=== PATIENT | female | born 1950 | race Caucasian/White ===

== ENCOUNTER → 2017-12-20 14:39 | Outpatient (CLI) | payer MEDICARE, OTHER, SELFPAY ==
--- NOTE | 2017-12-20 16:34 | DI.CT.S_ITS ---
PROCEDURE: CT ABDOMEN PELVIS WO/W CON INDICATIONS: GROSS HEMATURIA TECHNIQUE: Optional 5 mm thick noncontrast images acquired from the diaphragm to the symphysis pubis. After the administration of intravenous contrast, 5 mm thick images acquired from the diaphragm to the symphysis pubis after a 10-minute delay. 2 mm thick coronal and sagittal reformats were then performed of the kidneys and ureters. For radiation dose reduction, the following was used: automated exposure control, adjustment of mA and/or kV according to patient size. COMPARISON: [facility], , PELVIC/TRANSVAGINAL, 11/04/2005, 9:17. FINDINGS: Image quality: Excellent. Lung bases: Lung bases are clear. Heart size is normal. Urinary system: Both kidneys are normal in size, without hydronephrosis bilaterally or right-sided nephrolithiasis on pre-contrast images. There is a 5 x 7 mm calculus that is nonobstructive measuring up to 540 Hounsfield units within the lateral collecting system of the left kidney, middle third. This is associated with an overlying focal cortical thinning indicating chronicity of this finding. No perinephric fat stranding. There is normal bilateral renal enhancement. Renal calyces appear normal in morphology when filled with contrast. Opacified portions of both ureters demonstrate normal caliber. Bladder wall thickness is normal. No calcified bladder stones. Other solid organs: Liver is normal in size and enhancement. Gallbladder appears normal where well visualized. Biliary system is non dilated. Pancreas enhances normally. Spleen is normal in size and enhancement. No adrenal nodules. Peritoneum and bowel: Bowel loops demonstrate normal wall thickness and caliber. No free fluid or air. Nodes and vessels: No retroperitoneal or mesenteric adenopathy by size criteria. Aorta and inferior vena cava are normal in size. Abdominal wall: No ventral hernias. Pelvis: No pathologic free pelvic fluid. No inguinal hernias or adenopathy. There is an abnormal high density ovoid uterine structure either within the endometrium or within the myometrium immediately adjacent measuring up to 4.6 cm. Statistically this is most likely a uterine fibroid. Pelvic ultrasound however definitely is recommended to confirm benign etiology. Bones: No suspicious bony lesions. No vertebral body compression fractures. IMPRESSION: 5 x 7 mm nonobstructive left renal collecting system calculus with overlying mild focal renal cortical thinning, indicating chronicity and possible prior infection in the overlying cortex. No sign of urinary tract obstruction. No mass lesion involving the urinary tract is identified (but the study is performed without contrast).. There is an unexpected finding of a subtle high density ovoid structure measuring up to 4.6 cm at the posterior two thirds of the uterus, potentially an endometrial mass or possibly a uterine fibroid. Pelvic ultrasound is recommended to establish etiology (uterine fibroid is the likely cause). Dictated by: Virgilio Vidal M.D. on 12/21/2017 at 12:10 Approved by: Virgilio Vidal M.D. on 12/21/2017 at 12:21
[2017-12-20 16:59] LABS: BUN Creatinine Ratio 22.9 (6-22); Blood Urea Nitrogen 16 mg/dL (7-17); Estimated Glomerular Filt Rate > 60.0 mL/min (>60)
== END ==
PROVIDERS: PCP Family Medicine; Visit Provider Urology
DX: N20.0 Calculus of kidney (principal); R31.0 Gross hematuria
CPT/HCPCS: 36415; 74178; 82565; 84520; Q9967

== ENCOUNTER → 2018-01-24 07:14 | Outpatient (CLI) | payer MEDICARE, OTHER, SELFPAY ==
--- NOTE | 2018-01-24 | DI.US.S_ITS ---
PROCEDURE: US PELVIC COMPLETE INDICATIONS: ENDOMETRIAL MASS TECHNIQUE: Real-time scanning was performed of the pelvic organs, with image documentation. Additional endovaginal scanning was necessary due to incomplete visualization of the adnexal and endometrial structures by transabdominal scanning. COMPARISON: [facility], RG, US PELVIC/TRANSVAGINAL, 11/04/2005, 9:17. [facility], CT, CT ABDOMEN PELVIS WO/W CON, 12/20/2017, 16:55. FINDINGS: Transabdominal scanning: Limited scanning through the kidneys shows no hydronephrosis. No pathologic free abdominal or pelvic fluid. Endovaginal scanning: Uterus: Uterus is normal in size at 7.3 x 5.9 x 6.3 cm. The endometrium is not visualized secondary to large fibroid likely intramural although submucosal positioning cannot be excluded measured 3.7 x 3.5 x 5.0 cm. Ovaries: Not visualized. No adnexal masses seen. Grossly normal appearance of the kidneys. IMPRESSION: Large fibroid which is likely either intramural or submucosal measuring up to 5.0 cm which appears slightly increased in size from prior report dated 11/04/2005. If indicated pre and post contrast gynecologic protocol MRI could be performed. Dictated by: Mateusz LLOYD Interpreted: Virgilio Vidal MD on 01/24/2018 at 8:13 Approved by: Virgilio Vidal M.D. on 01/24/2018 at 14:05
== END ==
PROVIDERS: PCP Family Medicine; Visit Provider Urology
DX: D25.9 Leiomyoma of uterus, unspecified (principal)
CPT/HCPCS: 76830; 76856

== ENCOUNTER → 2018-02-11 09:12 | Outpatient (CLI) | payer MEDICARE, OTHER, SELFPAY ==
--- NOTE | 2018-02-11 | DI.MG.S_ITS ---
BILATERAL DIGITAL SCREENING MAMMOGRAM 3D/2D WITH CAD: 02/11/2018 CLINICAL: Routine screening. Family history of breast cancer. Comparison is made to exams dated: 01/27/2017 mammogram, 01/19/2016 mammogram, and 01/15/2015 mammogram - [facility]. The tissue of both breasts is extremely dense, which lowers the sensitivity of mammography. Current study was also evaluated with a Computer Aided Detection (CAD) system. No significant masses, calcifications, or other findings are seen in either breast. There has been no significant interval change. IMPRESSION: NEGATIVE There is no mammographic evidence of malignancy. A 1 year screening mammogram is recommended. This exam was interpreted at Station ID: [id number]. NOTE: For mammograms, a report in lay terms will be sent to the patient. Approximately 15% of breast malignancies will not be visualized mammographically. In the management of a palpable breast mass, a negative mammogram must not discourage biopsy of a clinically suspicious lesion. Electronically Signed By: Keisha shah/roxanna:02/13/2018 15:37:39 letter sent: Normal Exam ACR BI-RADS Category 1: Negative 3341F
== END ==
PROVIDERS: PCP Family Medicine; Visit Provider Family Medicine
DX: Z12.31 Encounter for screening mammogram for malignant neoplasm of breast (principal); Z80.3 Family history of malignant neoplasm of breast
CPT/HCPCS: 77063; 77067

== ENCOUNTER → 2018-03-10 07:45 | Outpatient (CLI) | payer MEDICARE, OTHER, SELFPAY ==
[2018-03-10 08:18] LABS: Alanine Aminotransferase 20 IU/L (9-52); Albumin 4.4 g/dL (3.5-5.0); Albumin Globulin Ratio 1.5 (1.0-2.8); Alkaline Phosphatase 53 U/L (38-126); Aspartate Aminotransferase 32 IU/L (14-36); BUN Creatinine Ratio 28.6 (6-22); Bilirubin Total 0.4 mg/dL (0.2-1.3); Blood Urea Nitrogen 20 mg/dL (7-17); Calcium 9.4 mg/dL (8.4-10.2); Carbon Dioxide 29 mmol/L (22-32); Chloride 104 mmol/L (98-107); Cholesterol 196 mg/dL (140-199); Estimated Glomerular Filt Rate > 60.0 mL/min (>60); Globulin 2.9 g/dL (1.7-4.1); Glucose 99 mg/dL (80-110); HEMOLYSIS < 15 (0-50); Potassium 4.8 mmol/L (3.4-5.1); Sodium 143 mmol/L (137-145); Total Protein 7.3 g/dL (6.3-8.2); Triglycerides 47 mg/dL (35-150)
[2018-03-10 08:48] LABS: HDL Cholesterol 126 mg/dL (40-60); LDL Cholesterol Calculated 61 mg/dL (<100)
== END ==
PROVIDERS: PCP Family Medicine; Visit Provider Family Medicine
DX: Z13.220 Encounter for screening for lipoid disorders (principal); Z13.1 Encounter for screening for diabetes mellitus
CPT/HCPCS: 36415; 80053; 80061

== ENCOUNTER → 2018-03-15 09:28 | Outpatient (CLI) | payer MEDICARE, OTHER, SELFPAY | PROVIDERS: PCP Family Medicine; Visit Provider Family Medicine | DX: M81.0 Age-related osteoporosis without current pathological fracture (principal); Z78.0 Asymptomatic menopausal state; Z87.891 Personal history of nicotine dependence | CPT/HCPCS: 77080 ==

== ENCOUNTER 2019-02-09 11:47 | Emergency (ER) | payer MEDICARE, OTHER, SELFPAY ==
[2019-02-09 12:01] VITALS: BP 159/97; PULSE 63; RESP 14; TEMP 36.4; O2SAT 99; BMI 19.3
--- NOTE | 2019-02-09 12:16 | ED.WEAKNESS ---
HPI - Weakness General Chief complaint: Weakness Stated complaint: lizeth De Los Santos Time Seen by Provider: 02/09/19 12:07 Source: patient, family and other Mode of arrival: Wheelchair Limitations: no limitations History of Present Illness HPI Narrative: Patient is 69-year-old female who presents with generalized weakness and lightheadedness. He says she woke up this morning and generally felt okay then few hours later she felt lightheaded all like she might pass out. She denies any chest pain or heart palpitation no weakness numbness or tingling Related Data Home Medications Medication Instructions Recorded Confirmed No Known Home Medications 01/13/18 03/15/18 Allergies Allergy/AdvReac Type Severity Reaction Status Date / Time No Known Drug Allergies Allergy Verified 03/15/18 08:26 Review of Systems Review of Systems ROS Unobtainable: All systems reviewed & are unremarkable except as noted in HPI and below Constitutional Constitutional: Denies chills, Denies fever(s), Denies lethargy and Reports weakness Eyes Eyes: Denies change in vision, Denies eye discharge, Denies irritation and Denies loss of vision ENT Ears, Nose, Mouth, and Throat: Denies change in voice, Denies neck pain and Denies sore throat Cardiovascular Cardiovascular: Denies chest pain, Denies irregular heart rhythm, Reports lightheadedness, Denies palpitations, Denies dyspnea, Denies dyspnea on exertion and Denies orthopnea Respiratory Respiratory: Denies cough, Denies dyspnea, Denies dyspnea on exertion and Denies wheezing Gastrointestinal Gastrointestinal: Denies abdominal pain, Denies change in bowel habits, Denies diarrhea, Denies nausea and Denies vomiting Genitourinary Genitourinary: Denies hematuria, Denies flank pain, Denies urinary incontinence and Denies urinary urgency Musculoskeletal Musculoskeletal: Denies neck pain Integumentary/Breasts Skin/Breast: Denies pruritus, Denies erythema, Denies rash and Denies wounds Neurologic Neurologic: Denies loss of vision and Reports weakness Endocrine Endocrine: Denies palpitations Allergic/Immunologic Allergic/Immunologic: Denies wheezing Patient History Medical History Actinic keratosis (Chronic) Chicken pox (Resolved) Fibroids (Chronic ~1989) Kidney stones (Chronic ~2017) Measles (Resolved) Mumps (Resolved) Skin cancer (Resolved) Tinnitus (Chronic ~1999) Surgical History History of surgery (Resolved ~2005) History of tonsillectomy (Resolved ~1956) Melanoma (Resolved ~1980) Ruptured ovarian cyst (Resolved ~1983) Social History marital status: household members: spouse lives independently: Yes education level: college occupational status: other (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) leisure activities: exercise and other (hiking) other: cooking Smoking Status: Former smoker alcohol intake: current (1-2 drinks per day) substance use type: does not use Smoking Status: Former smoker tobacco type: cigarettes alcohol intake frequency: 3 or more drinks per day Alcohol type: wine Substance Use Type: does not use Exam Initial Vital Signs Initial Vital Signs: Vital Signs Temperature 97.5 F L 02/09/19 12:01 Pulse Rate 63 02/09/19 12:01 Respiratory Rate 14 02/09/19 12:01 Blood Pressure 159/97 H 02/09/19 12:01 Pulse Oximetry 99 02/09/19 12:01 GENERAL: Well-appearing, well-nourished and in no acute distress. HEENT: Head atraumatic,EOMI, pupils reactive, face symmetric CARDIOVASCULAR: Regular rate and rhythm without murmurs, rubs or gallops. RESPIRATORY: Breath sounds equal bilaterally, no wheezes rales or rhonchi. ABDOMEN: Soft, nontender. Normoactive bowel sounds all 4 quadrants. No guarding or rebound. EXTREMITIES: Normal range of motion, no clubbing or edema. Neurovascularly intact NEUROLOGICAL: Alert and oriented x4.Normal gait and speech. Cranial nerves II through XII grossly intact. Hand Almond Blancher strength equal bilaterally SKIN: Warm, dry, no laceration, no petechiae, no rashes or lesions. Scores NIH Stroke Scale Level of Conciousness: Alert, keenly responsive Ask month/age: Answers both questions correctly. Open/close eyes, close hand: Performs both tasks correctly Best gaze horizontal: Normal Visual redd: No visual loss Facial palsy: Normal symetrical movement Left arm drift: No drift for full 10 sec Right arm drift: No drift for full 10 sec Left leg drift: No drift for full 10 sec Right leg drift: No drift for full 10 sec Limb ataxia: Absent Sensory on face/arms/legs: Normal, no sensory loss Best language: No aphasia, normal Dysarthria: Normal Extinction or inattention: No abnormality Total NIH Stroke scale score: 0 Course Orders Ordered: ED Orders 02/09/19 12:24 Complete Blood Count AUTO DIFF Stat Comprehensive Metabolic Panel Stat 02/09/19 12:30 EKG-12 Lead Stat Discontinued Medications Sodium Chloride (Normal Saline 0.9%) 1,000 mls @ 1,000 mls/hr IV BOLUS ONE Stop: 02/09/19 13:29 Last Infusion: 02/09/19 13:35 Dose: 0 mls/hr Documented by: МАРИЯ Admin: 02/09/19 12:35 Dose: 1,000 mls/hr Documented by: МАРИЯ Vital Signs Vital signs: Vital Signs - 8 hr 02/09/19 12:01 02/09/19 13:09 Temperature 97.5 F L Pulse Rate 63 65 Respiratory Rate 14 13 Blood Pressure 159/97 H Blood Pressure [Left Arm] 142/77 H Pulse Oximetry 99 100 MDM - Weakness Lab Data Attestation: I reviewed the patient's lab results. Result diagrams: 02/09/19 12:24 02/09/19 12:24 Labs: Lab Results 02/09/19 02/09/19 Range/Units 12:24 12:24 WBC 5.0 (4.5-11.0) X10^3/uL RBC 4.10 (4.0-5.2) X10^6/uL Hgb 14.0 (12.0-16.0) g/dL Hct 40.0 (36-46) % MCV 97.5 (80-100) fL MCH 34.1 H (26-34) PG MCHC 35.0 (30-36) % RDW 13.3 (11.6-14.8) % Plt Count 303 (150-400) X10^3/uL Neut % (Auto) 48.9 L (50-75) % Lymph % (Auto) 39.8 (25-40) % Montague % (Auto) 9.7 (3-14) % Eos % (Auto) 0.7 L (2-4) % Baso % (Auto) 0.9 (0-2) % Neut # (Auto) 2400 (4251-1570) /uL Lymph # (Auto) 2000 (6618-2001) /uL Montague # (Auto) 500 (0-900) /uL Eos # (Auto) 0 (0-450) /uL Baso # (Auto) 0 (0-100) /uL Sodium 139 (137-145) mmol/L Potassium 4.5 (3.4-5.1) mmol/L Chloride 101 (98-107) mmol/L Carbon Dioxide 27 (22-32) mmol/L BUN 15 (7-17) mg/dL Creatinine 0.70 (0.52-1.04) mg/dL Estimated GFR > 60.0 (>60) mL/min BUN/Creatinine Ratio 21.4 (6-22) Glucose 106 (80-110) mg/dL Calcium 9.4 (8.4-10.2) mg/dL Total Bilirubin 0.6 (0.2-1.3) mg/dL AST 40 H (14-36) IU/L ALT 17 (<35) IU/L Alkaline Phosphatase 54 (38-126) U/L Total Protein 7.6 (6.3-8.2) g/dL Albumin 4.8 (3.5-5.0) g/dL Globulin 2.8 (1.7-4.1) g/dL Albumin/Globulin Ratio 1.7 (1.0-2.8) Point of Care Testing Glucose POC 94 ECG Data Attestation: I personally reviewed and interpreted this ECG as follows: Prior ECG tracings: not available for review Interpretation: Normal sinus rhythm rate 63 p.r. interval 134 QRS [address] elevations depressions or T-wave inversions MDM Narrative Medical decision making narrative: Patient overall is feeling much better. Possibly related to dehydration she also ate she was in the emergency department recommend outpatient follow-up. Discharge Plan Departure Patient Disposition: Home Clinical Impression: Near syncope Discharge Date/Time: 02/09/19 14:10 Instructions: DI for Dehydration -- Adult Activity Restrictions/Additional Instructions: *You have been diagnosed with lightheadedness *What to do: You may have been slightly dehydrated today. Overall your blood work and EKG are reassuring. Increase fluid intake at eat regularly. *Continue to take medications as directed *Follow up with your primary care provider in 2-3 days *Return to ER if you should have passing out, chest pain heart palpitations lightheadedness or any new, worsening or concerning symptoms Prescriptions: No Action No Known Home Medications RF: 0 Referrals: Deja Mera DO [Primary Care Provider] -
[2019-02-09] MEDS: SODIUM CHLORIDE 0.9% 1,000 ML 1000 ML IV (12:35)
[2019-02-09 12:39] LABS: Add Manual Diff / Slide Review NO; Basophils Absolute Auto 0 /uL (0-100); Basophils Percent Auto 0.9 % (0-2); Eosinophils Absolute Auto 0 /uL (0-450); Eosinophils Percent Auto 0.7 % (2-4); Lymphocytes Absolute Auto 2000 /uL (1100-4500); Lymphocytes Percent Auto 39.8 % (25-40); Mean Corpuscular Hemoglobin 34.1 PG (26-34); Mean Corpuscular Volume 97.5 fL (80-100); Monocytes Absolute Auto 500 /uL (0-900); Monocytes Percent Auto 9.7 % (3-14); Neutrophils Absolute Auto 2400 /uL (1500-7000); Neutrophils Percent Auto 48.9 % (50-75); Platelet Count 303 X10^3/uL (150-400); Red Cell Distribution Width 13.3 % (11.6-14.8)
[2019-02-09 12:45] LABS: Alanine Aminotransferase 17 IU/L (<35); Albumin 4.8 g/dL (3.5-5.0); Albumin Globulin Ratio 1.7 (1.0-2.8); Alkaline Phosphatase 54 U/L (38-126); Aspartate Aminotransferase 40 IU/L (14-36); BUN Creatinine Ratio 21.4 (6-22); Bilirubin Total 0.6 mg/dL (0.2-1.3); Blood Urea Nitrogen 15 mg/dL (7-17); Calcium 9.4 mg/dL (8.4-10.2); Carbon Dioxide 27 mmol/L (22-32); Chloride 101 mmol/L (98-107); Estimated Glomerular Filt Rate > 60.0 mL/min (>60); Globulin 2.8 g/dL (1.7-4.1); Glucose 106 mg/dL (80-110); HEMOLYSIS < 15 (0-50); Potassium 4.5 mmol/L (3.4-5.1); Sodium 139 mmol/L (137-145); Total Protein 7.6 g/dL (6.3-8.2)
--- NOTE | 2019-02-09 13:01 | PC.NURSE ---
pt having something to eat from cafeteria per MD celaya
[2019-02-09 13:09] VITALS: BP 142/77; PULSE 65; RESP 13; O2SAT 100
--- NOTE | 2019-02-09 13:46 | PC.NURSE ---
Patient states that she is feeling much better.
--- NOTE | 2019-02-09 14:02 | PC.NURSE ---
pt states feeling better, thank you
== END 2019-02-09 14:10 | disposition home or self-care (01) ==
PROVIDERS: Emergency Provider Emergency Medicine; PCP Family Medicine
DX: R55 Syncope and collapse (principal)
CPT/HCPCS: 36415; 80053; 82962; 85025; 93005; 93010; 99284

== ENCOUNTER → 2019-03-16 10:55 | Outpatient (CLI) | payer MEDICARE, OTHER, SELFPAY ==
--- NOTE | 2019-03-16 | DI.MG.S_ITS ---
BILATERAL DIGITAL SCREENING MAMMOGRAM 3D/2D WITH CAD: 03/16/2019 CLINICAL: Routine screening. Family history of breast cancer. Comparison is made to exams dated: 02/11/2018 mammogram, 01/27/2017 mammogram, and 01/19/2016 mammogram - [facility]. The tissue of both breasts is extremely dense, which lowers the sensitivity of mammography. Current study was also evaluated with a Computer Aided Detection (CAD) system. No significant masses, calcifications, or other findings are seen in either breast. There has been no significant interval change. IMPRESSION: NEGATIVE There is no mammographic evidence of malignancy. A 1 year screening mammogram is recommended. This exam was interpreted at Station ID: [id number]. NOTE: For mammograms, a report in lay terms will be sent to the patient. Approximately 15% of breast malignancies will not be visualized mammographically. In the management of a palpable breast mass, a negative mammogram must not discourage biopsy of a clinically suspicious lesion. Electronically Signed By: Tomas camarena/roxanna:03/16/2019 15:44:51 letter sent: Normal Exam ACR BI-RADS Category 1: Negative 3341F
== END ==
PROVIDERS: PCP Family Medicine; Visit Provider Family Medicine
DX: Z12.31 Encounter for screening mammogram for malignant neoplasm of breast (principal); Z80.3 Family history of malignant neoplasm of breast
CPT/HCPCS: 77063; 77067

== ENCOUNTER → 2019-08-09 10:44 | Outpatient (CLI) | payer MEDICARE, OTHER, SELFPAY ==
[2019-08-09 11:48] LABS: Alanine Aminotransferase 18 IU/L (<35); Albumin 4.7 g/dL (3.5-5.0); Albumin Globulin Ratio 1.6 (1.0-2.8); Alkaline Phosphatase 55 U/L (38-126); Aspartate Aminotransferase 33 IU/L (14-36); BUN Creatinine Ratio 24.7 (6-22); Blood Urea Nitrogen 18 mg/dL (7-17); Calcium 10.6 mg/dL (8.4-10.2); Carbon Dioxide 25 mmol/L (22-32); Chloride 102 mmol/L (98-107); Estimated Glomerular Filt Rate > 60.0 mL/min (>60); Globulin 2.9 g/dL (1.7-4.1); Glucose 112 mg/dL (80-110); HEMOLYSIS < 15 (0-50); Potassium 4.7 mmol/L (3.4-5.1); Sodium 137 mmol/L (137-145); Total Protein 7.6 g/dL (6.3-8.2)
== END ==
PROVIDERS: PCP Family Medicine; Referring Provider Family Medicine; Visit Provider Family Medicine
DX: I10 Essential (primary) hypertension (principal)
CPT/HCPCS: 36415; 80053

== ENCOUNTER → 2019-08-30 11:02 | Outpatient (CLI) | payer MEDICARE, OTHER, SELFPAY ==
[2019-08-30 11:54] LABS: BUN Creatinine Ratio 22.7 (6-22); Blood Urea Nitrogen 15 mg/dL (7-17); Calcium 9.9 mg/dL (8.4-10.2); Carbon Dioxide 26 mmol/L (22-32); Chloride 104 mmol/L (98-107); Estimated Glomerular Filt Rate > 60.0 mL/min (>60); Glucose 110 mg/dL (80-110); HEMOLYSIS < 15 (0-50); Potassium 4.8 mmol/L (3.4-5.1); Sodium 138 mmol/L (137-145)
== END ==
PROVIDERS: PCP Family Medicine; Referring Provider Family Medicine; Visit Provider Family Medicine
DX: I10 Essential (primary) hypertension (principal)
CPT/HCPCS: 36415; 80048

== ENCOUNTER → 2019-10-09 11:29 | Outpatient (CLI) | payer MEDICARE, OTHER, SELFPAY ==
--- NOTE | 2019-10-09 | DI.RAD.S_ITS ---
PROCEDURE: XR LUMBAR SPINE 2-3V INDICATIONS: LOW BACK PAIN TECHNIQUE: 3 views of the lumbar spine were acquired. COMPARISON: None. FINDINGS: Bones: 5 [id number] vertebrae are present. Trace dextroscoliosis. Trace multilevel retrolisthesis. Mild multilevel disc degeneration and moderate facet joint arthropathy at the L4-L5 and L5-S1 levels.. No vertebral body compression fractures. No suspicious bony lesions. Soft tissues: Overlying bowel gas pattern is normal. No suspicious soft tissue calcifications. IMPRESSION: Multilevel spondylosis. Dictated by: Mateusz LLOYD Interpreted: Sydnee Jacob MD on 10/09/2019 at 16:43 Approved by: Sydnee Jacob M.D. on 10/09/2019 at 18:04
== END ==
PROVIDERS: PCP Family Medicine; Referring Provider Chiropractor; Visit Provider Chiropractor
DX: M54.5 Low back pain (principal); M47.816 Spondylosis without myelopathy or radiculopathy, lumbar region; M47.817 Spondylosis without myelopathy or radiculopathy, lumbosacral region
CPT/HCPCS: 72100

== ENCOUNTER → 2019-11-26 10:00 | Outpatient (CLI) | payer MEDICARE, OTHER, SELFPAY ==
[2019-11-27 07:37] LABS: COVID19 Sendout Not Detected (Not Detect)
== END ==
PROVIDERS: PCP Family Medicine; Visit Provider Physician Assistant
DX: Z11.59 Encounter for screening for other viral diseases (principal)
CPT/HCPCS: 87635

== ENCOUNTER 2019-11-29 06:34 | Day surgery (SDC) | payer MEDICARE, OTHER, SELFPAY ==
[2019-11-26 07:58] VITALS: BMI 19.5
[2019-11-29] VITALS (12 sets, daily range): BP systolic 102–143; BP diastolic 63–95; PULSE 54–81; RESP 13–24; TEMP 36.1–37.3; O2SAT 94–99; BMI 18.7
--- NOTE | 2019-11-29 | PATH_ITS ---
[facility] Accession Number: [id number] . 01 Material submitted: . uterus - BILATERAL FALLOPIAN TUBES AND OVARIES, UTERUS . 01 Clinical history: . SDC . 02 Diagnosis: Uterus, Bilateral Fallopian Tubes, and Ovaries, Laparoscopic Supracervical Hysterectomy and Bilateral Salpingo-oophorectomy (Morcellated Specimen Weight 123 grams): Endocervix with no significant histomorphologic abnormality. Basalis endometrium with cystic atrophy and no significant histomorphologic abnormality. Myometrium with multiple intramural leiomyomas (8.0 x 6.0 x 3.5 cm in aggregate dimension). Uterine serosa with no significant histomorphologic abnormality. Attached ovary is received disrupted and has no significant histomorphologic abnormality. Attached fallopian tube with multiple benign paratubal cysts (1-3 mm in greatest dimension). Detached ovary with scattered, benign cortical cysts and no significant histomorphologic abnormality. Detached fallopian tube with multiple benign paratubal cysts (1-11 mm in greatest dimension). [facility] 12/05/2019 1331 Local . 02 Electronically signed: . Barbara Cyr MD, Pathologist NPI- [id number] . 01 Gross description: . Received in formalin, labeled bilateral fallopian tubes and ovaries, uterus, and consists a 123-gram fragmented uterus and bilateral adnexa. No cervix is identified. The serosa is boone-pink and smooth. The endometrium is boone-pink, focally hemorrhagic, and measures 0.1 cm in thickness. The myometrium is boone-pink and trabeculated. There are multiple leiomyomata fragments measuring 8.0 x 6.0 x 3.5 cm in aggregate. Sectioning reveals boone-white whorled cut surfaces with no areas of hemorrhage, necrosis or cystic degeneration. The attached ovary has been previously incised and measures 3.0 x 1.5 x 0.6 cm. The external surface is boone and cerebriform. Sectioning reveals a boone-pink ovarian stroma and corpora albicantia. The attached fallopian tube measures 6.0 cm in length by 0.5 cm in diameter and displays a pink-purple smooth serosa with multiple paratubal cysts ranging from 0.1 to 0.2 cm. Sectioning reveals a boone mucosa and a pinpoint to stellate lumen measuring 0.2 cm in diameter. The detached ovary measures 1.5 x 1.5 x 0.6 cm and displays a boone, smooth to cerebriform external surface. Sectioning reveals a boone-pink ovarian stroma. The detached fallopian tube measures 6.2 cm in length by 0.5 cm in diameter, and displays boone-pink serosa with multiple paratubal cysts ranging from 0.1 to 1.1 cm. Sectioning reveals a boone mucosa and a stellate lumen measuring 0.2 cm in diameter. Cassandra Architect sections are submitted. . A1-A3: endomyometrium and serosa. A4-A6: home furnishings sales representative leiomyomata. A7: home furnishings sales representative attached ovary. A8-A9: home furnishings sales representative cross-sections and bisected fimbria of attached fallopian tube. A10: detached ovary, entirely submitted. A11-A12: home furnishings sales representative cross-sections and bisected fimbria of detached fallopian tube. ([id number]) /MRV 12/04/2019 [facility] Local . 02 Pathologist provided ICD-10: D25.9 . 02 CPT . 245060 Performed at: 01 [facility] [address] [facility], [place], [place] [id number] MD Tomas Hector MD Phone: [phone] Performed at: 02 [facility] [address] [place], [place] [id number] MD Ana Elizabeth MD Phone: [phone]
--- NOTE | 2019-11-29 07:12 | PM.PREOP ---
Pre-operative Note COVID-19 COVID-19 status: Negative Result date/Date tested (Pos, Neg/Pending): 12/26/19 Interval Note History & Physical reviewed/Exam performed by Physician: Yes Changes to H&P: No H&P completed within 30 days and has changed as indicated here:: 11/20/19
[2019-11-29] MEDS: LACTATED RINGERS 1,000 ML 42 ML IV (07:29)
[2019-11-29] MEDS: SCOPOLAMINE 1 PATCH TOP (07:31)
[2019-11-29] MEDS: ACETAMINOPHEN 325 MG TABLET 975 MG PO (07:31)
[2019-11-29] MEDS: CEFAZOLIN 2 GM/100 ML FROZ.PIGGY IV (07:41)
--- NOTE | 2019-11-29 08:19 | SUR.OPER ---
Lithotomy on padded OR bed. [place] Pad Positioner under torso. Head on pillow, arms padded and tucked at sides. Legs secured in padded yellow fins stirrups.
[2019-11-29] MEDS: BUPIVACAINE 0.5% (PF) VIAL 30 ML INJ (08:37)
[2019-11-29] MEDS: ROPIVACAINE 0.2% PF 2 MG/ML 10ML AMP 20 ML INJ (08:50)
--- NOTE | 2019-11-29 09:13 | P.OP_ITS ---
Operative Date/Time/Diagnoses Date of procedure: 11/29/19 Time of procedure: 09:13 Pre-op diagnosis: Postmenopausal bleeding Uterine fibroids Post-op diagnosis: same Procedure & Clinicians Procedure: Procedures Operation Date: 11/29/19 07:45 Actual Procedures Side Surgeon p Laparoscopic Supracervical Hysterectomy w/ bilateral salpingo-oophorectomy Marian Dejessu MD Indications: Postmenopausal bleeding Uterine fibroids Surgeon: Marian Dejesus [employer] Supervisor: Josi Salazar Anesthesia Type: General and Local Operative Notes Findings: Ten week size multifibroid uterus Retroverted uterus Normal tubes and ovaries Liver with a small amount of fibrosis Normal gallbladder Appendix not visualized Closure Type: primary Specimen(s): left tube & ovary, right tube & ovary and uterus Applied: catheter (Removed at the end of the procedure) Estimated blood loss (mL): 25 Blood products transfused: none Procedure in detail: The patient was taken to the operating room where she was placed in the dorsal supine position. After adequate general endotracheal anesthesia was achieved, she was placed in the dorsal lithotomy position, and prepped and draped in the usual sterile fashion. A timeout was performed. A bivalve speculum was placed into the vagina and the anterior lip of the cervix grasped with a single-tooth tenaculum. The cervical os was sequentially dilated until the ZUMI uterine manipulator could pass easily into the endometrial cavity. The single-tooth tenaculum was removed from the anterior lip of the cervix, and the bivalve speculum was removed from the vagina. Attention was then turned to the abdomen where 6 mL of half percent Marcaine with epinephrine were injected in the umbilical fold. A 5 mm incision was made. The veress needle was placed into the peritoneal cavity, and its placement confirmed by aspiration and drop test. The veress needle was removed. A 5 mm trocar was placed without difficulty. 2 other incisions were made midway between the pubic symphysis and umbilicus after 5 mL of half percent Marcaine with epinephrine were injected. These were 5 mm incisions. Two, 5 mm trochars were placed under direct visualization. The right tube and ovary were grasped with an atraumatic grasper. Using the plasma kinetic with settings of 40 W the mesosalpinx was cauterized and cut all the way down to the cornua of the uterus. The cornua of the uterus was then grasped with an atraumatic grasper. The utero-ovarian ligaments were cauterized and cut. The round ligament and broad ligament were cauterized and cut with plasma kinetic. Hemostasis was achieved. The bladder flap was created using the plasma kinetic with cautery and cut care home across. The uterine arteries on the right side were extensively cauterized with plasma kinetic. All of this was repeated on the left side. The remainder of the bladder flap was created using the plasma kinetic, and the bladder taken down off the lower uterine segment and cervix. Using the L[place]oop, the cervix was amputated from the uterus 2 cm above the uterosacral ligaments, after the ZUMI uterine manipulator was removed from the uterus and a moistened sponge stick was placed in the vagina. The endocervical canal was cauterized with the PlasmaKinetic. 6 mL of half percent Marcaine with epinephrine were injected above the pubic symphysis. A 12mm incision was made. A 12 mm trocar was placed under direct visualization. An Endobag was placed through the suprapubic incision and the uterus, tubes, and ovaries were placed into the Endobag. The uterus was morcellated in approximately 4 pieces. The tubes and ovaries were also removed from the Endobag. The Endobag was removed from the peritoneal cavity. The pelvis was copiously irrigated with warm normal saline. No bleeding was noted. 20 mL of 0.2% ropivacaine were placed over the pelvic pedicles. The instruments were removed from the abdomen. The CO2 was allowed to escape. The suprapubic incision was closed on the fascia with 0 Vicryl. All of the incisions were closed with 4-0 Biosyn in a subcuticular fashion. Steri strips, 2x2's and op sites were placed over the incisions. The moistened sponge stick was removed from the vagina. Sponge, lap, and instrument counts were correct x 2. The patient tolerated the procedure well, was taken to PACU in stable condition. Complications: none Post-operative Condition: stable Disposition: PACU Plan for aftercare: Home after recovery
== END 2019-11-29 13:41 | disposition home or self-care (01) ==
PROVIDERS: PCP Family Medicine; Referring Provider Obstetrics & Gynecology; Visit Provider Obstetrics & Gynecology
PROC: 0UT94ZL Resection of Uterus, Supracervical, Percutaneous Endoscopic Approach (ICD-10-PCS; CPT 58542; principal; 2019-11-29 07:45)
DX: D25.9 Leiomyoma of uterus, unspecified (principal); I10 Essential (primary) hypertension; N83.8 Other noninflammatory disorders of ovary, fallopian tube and broad ligament
CPT/HCPCS: 58542; J0330; J0690; J1100; J1170; J1885; J2250; J2405; J2704; J2795

== ENCOUNTER → 2020-03-17 08:28 | Outpatient (CLI) | payer MEDICARE, OTHER, SELFPAY ==
--- NOTE | 2020-03-17 | DI.MG.S_ITS ---
BILATERAL DIGITAL SCREENING MAMMOGRAM 3D/2D WITH CAD: 03/17/2020 CLINICAL: Routine screening. Family history of breast cancer. Comparison is made to exams dated: 03/16/2019 mammogram, 02/11/2018 mammogram, and 01/27/2017 mammogram - [facility]. The tissue of both breasts is heterogeneously dense. This may lower the sensitivity of mammography. Current study was also evaluated with a Computer Aided Detection (CAD) system. No significant masses, calcifications, or other findings are seen in either breast. There has been no significant interval change. IMPRESSION: NEGATIVE There is no mammographic evidence of malignancy. A 1 year screening mammogram is recommended. This exam was interpreted at Station ID: [id number]. NOTE: For mammograms, a report in lay terms will be sent to the patient. Approximately 15% of breast malignancies will not be visualized mammographically. In the management of a palpable breast mass, a negative mammogram must not discourage biopsy of a clinically suspicious lesion. Electronically Signed By: Héctor thomas/roxanna:03/17/2020 09:36:31 letter sent: Normal Exam ACR BI-RADS Category 1: Negative 3341F
== END ==
PROVIDERS: PCP Family Medicine; Referring Provider Family Medicine; Visit Provider Family Medicine
DX: Z12.31 Encounter for screening mammogram for malignant neoplasm of breast (principal); Z80.3 Family history of malignant neoplasm of breast
CPT/HCPCS: 77063; 77067

== ENCOUNTER → 2020-12-18 14:06 | Outpatient (CLI) | payer MEDICARE, OTHER, SELFPAY ==
--- NOTE | 2020-12-18 14:08 | DI.RAD.S_ITS ---
PROCEDURE: XR DEXA AXIAL SKELETON INDICATIONS: postmenopausal female, osteoporosis on 2019 DEXA COMPARISON: [facility], CR, XR DEXA AXIAL SKELETON, 03/15/2018, 9:48. FINDINGS: This blank DEXA report has been sent in error by the PACS system. The correct and complete report will be forthcoming in 1-2 days. Thank you for your patience and understanding. Dictated by: Abeba Montague MD, PhD on 12/18/2020 at 16:39 Approved by: Abeba Montague MD, PhD on 12/18/2020 at 16:39
== END ==
PROVIDERS: PCP Family Medicine; Referring Provider Family Medicine; Visit Provider Family Medicine
DX: M81.0 Age-related osteoporosis without current pathological fracture (principal); I10 Essential (primary) hypertension; Z78.0 Asymptomatic menopausal state; Z87.891 Personal history of nicotine dependence; Z82.62 Family history of osteoporosis
CPT/HCPCS: 36415; 77080; 80053

== ENCOUNTER → 2020-12-18 14:22 | Outpatient (CLI) | payer MEDICARE, OTHER, SELFPAY ==
[2020-12-18 15:11] LABS: Alanine Aminotransferase 18 IU/L (<35); Albumin 4.5 g/dL (3.5-5.0); Albumin Globulin Ratio 1.8 (1.0-2.8); Alkaline Phosphatase 67 U/L (38-126); Aspartate Aminotransferase 29 IU/L (14-36); BUN Creatinine Ratio 24.2 (6-22); Bilirubin Total 0.5 mg/dL (0.2-1.3); Blood Urea Nitrogen 16 mg/dL (7-17); Calcium 9.9 mg/dL (8.4-10.2); Carbon Dioxide 28 mmol/L (22-32); Chloride 104 mmol/L (98-107); Estimated Glomerular Filt Rate > 60.0 mL/min (>60); Globulin 2.5 g/dL (1.7-4.1); Glucose 101 mg/dL (80-110); HEMOLYSIS < 15 (0-50); Potassium 4.9 mmol/L (3.4-5.1); Sodium 139 mmol/L (137-145)
== END ==
PROVIDERS: PCP Family Medicine; Referring Provider Family Medicine; Visit Provider Family Medicine
DX: I10 Essential (primary) hypertension (principal)
CPT/HCPCS: 36415; 80053

== ENCOUNTER → 2021-03-19 11:55 | Outpatient (CLI) | payer MEDICARE, OTHER, SELFPAY ==
--- NOTE | 2021-03-19 11:57 | DI.MG.S_ITS ---
BILATERAL DIGITAL SCREENING MAMMOGRAM 3D/2D WITH CAD: 03/19/2021 CLINICAL: Routine screening. Family history of breast cancer. Comparison is made to exams dated: 03/17/2020 mammogram, 03/16/2019 mammogram, and 02/11/2018 mammogram - [facility]. The tissue of both breasts is heterogeneously dense. This may lower the sensitivity of mammography. Current study was also evaluated with a Computer Aided Detection (CAD) system. No significant masses, calcifications, or other findings are seen in either breast. There has been no significant interval change. IMPRESSION: NEGATIVE There is no mammographic evidence of malignancy. A 1 year screening mammogram is recommended. This exam was interpreted at Station ID: [id number]. NOTE: For mammograms, a report in lay terms will be sent to the patient. Approximately 15% of breast malignancies will not be visualized mammographically. In the management of a palpable breast mass, a negative mammogram must not discourage biopsy of a clinically suspicious lesion. Electronically Signed By: Tomas camarena/roxanna:03/19/2021 14:56:53 letter sent: Normal Exam ACR BI-RADS Category 1: Negative 3341F
== END ==
PROVIDERS: PCP Family Medicine; Referring Provider Family Medicine; Visit Provider Family Medicine
DX: Z12.31 Encounter for screening mammogram for malignant neoplasm of breast (principal)
CPT/HCPCS: 77063; 77067

== ENCOUNTER → 2021-04-09 10:19 | Outpatient (CLI) | payer MEDICARE, OTHER, SELFPAY ==
--- NOTE | 2021-04-09 10:22 | DI.RAD.S_ITS ---
PROCEDURE: XR LUMBAR SPINE 2-3V INDICATIONS: eval/treat TECHNIQUE: 3 views of the lumbar spine were acquired. COMPARISON: [facility], CR, XR LUMBAR SPINE 2-3V, 10/09/2019, 11:30. FINDINGS: Bones: 5 [id number] vertebrae are present. Dextrocurvature of the lumbar spine. No vertebral body compression fractures. Facet arthrosis, most prominent at L5-S1. Mild multilevel disc degeneration with endplate osteophytosis. Soft tissues: Overlying bowel gas pattern is normal. No suspicious soft tissue calcifications. IMPRESSION: No significant interval change. Dictated by: Tico Lambert M.D. on 04/09/2021 at 11:26 Approved by: Tico Lambert M.D. on 04/09/2021 at 11:27
== END ==
PROVIDERS: PCP Family Medicine; Referring Provider Family Medicine; Visit Provider Family Medicine
DX: M51.16 Intervertebral disc disorders with radiculopathy, lumbar region (principal); M85.89 Other specified disorders of bone density and structure, multiple sites; M47.27 Other spondylosis with radiculopathy, lumbosacral region
CPT/HCPCS: 72100

== ENCOUNTER → 2021-04-27 11:46 | Outpatient (CLI) | payer MEDICARE, OTHER, SELFPAY ==
[2021-04-27 13:44] LABS: COVID19 -Nasal RAPID Negative (Negative)
== END ==
PROVIDERS: PCP Family Medicine; Referring Provider Physical Medicine & Rehabilitation; Visit Provider Physical Medicine & Rehabilitation
DX: Z20.822 Contact with and (suspected) exposure to COVID-19 (principal)
CPT/HCPCS: 87635; C9803

== ENCOUNTER 2021-04-28 10:46 | Outpatient (CLI) | payer MEDICARE, OTHER, SELFPAY ==
[2021-04-28] VITALS (8 sets, daily range): BP systolic 158–184; BP diastolic 82–99; PULSE 76–86; RESP 15–20; TEMP 37.2; O2SAT 97–100
--- NOTE | 2021-04-28 10:48 | DI.RAD.S_ITS ---
PROCEDURE: PAIN L INTERLAMINAR/CAUDAL INJ INDICATIONS: SPONDYLOSIS COMPARISON: None. FINDINGS: Fluoroscopic spot filming was performed to verify placement of spinal needles at the L3-L4 level(s), as labeled on the films. Appropriate location(s) of the needle tip(s) was confirmed by injection of iodinated contrast. IMPRESSION: Access needle in the right paramedian L3-L4 interlaminar space for translaminar epidural steroid injection. Dictated by: Abeba Montague MD, PhD on 04/28/2021 at 15:25 Approved by: Abeba Montague MD, PhD on 04/28/2021 at 15:26
[2021-04-28] MEDS: BUPIVACAINE 0.25% (PF) VIAL 2 ML INJ (11:41)
[2021-04-28] MEDS: DEXAMETHASONE 10 MG/ML VIAL 20 MG INJ (11:41)
[2021-04-28] MEDS: BETAMETHASONE 30 MG/5 ML MDV 6 MG INJ (11:41)
[2021-04-28] MEDS: IOPAMIDOL 15 ML VIAL 3 ML INJ (11:41)
[2021-04-28] MEDS: MIDAZOLAM 5 MG/5 ML VIAL IV (11:42)
[2021-04-28] MEDS: fentaNYL 250 MCG/5 ML INJ 50 MCG IV (11:42)
--- NOTE | 2021-04-28 11:52 | P.PCN_ITS ---
Date/Time/Diagnoses Date of procedure: 04/28/21 Time of procedure: 11:52 Pre-procedure diagnosis: 1. HNP WITH RADICULAR FEATURES, 2. MULTILEVEL CENTRAL STENOSIS, Post-procedure diagnosis: same Procedure Notes Procedure: 1. FLUOROSCOPICALLY GUIDED CONTRAST CONTROLLED INTERLAMINAR EPIDURAL STEROID INJECTION - L3/4 Indications: Bryanna is referred by Dr. Mera for treatment of Bilateral Foraminal Stenosis L>R LE symptoms. Physician: Isaiah Adam Total Fluoroscopy time (seconds): 5 Total sedation minutes: 9 Complications: none Procedure in detail & Post-procedure care: FINDINGS Multilevel Central Spinal Stenosis with Nerve Root Compression DESCRIPTION OF PROCEDURE Fluoroscopically guided, contrast-controlled L3/4 translaminar epidural steroid injection. Following review of allergy and review of potential side effects and complications, including, but not necessarily limited to, infection, allergic reaction, local tissue breakdown, temporary as well as permanent nerve injury, paralysis, stroke and possible , the patient indicated that the patient understood and agreed to proceed. An informed consent document was signed by the patient, witnessed by a nurse, and placed in the patient's chart. Additionally, other treatment options including modalities, medications, and physical therapy were reviewed with the patient. After review of previous anaesthesic history and IV conscious sedation the patient was deemed safe to proceed with today?s procedure with IV conscious sedation as ASA class II designation. Safety time-out was performed to confirm patient ID, procedure to be performed and site of procedure. IV sedation was accomplished with a combination of 2mg of Versed and 50mcg of Fentanyl was administered by the RN after DO order, titrated to patient comfort during the course of the procedure while the patient remained responsive to all verbal commands. In the prone position, following sterile prep and drape of the lumbar region, the L3/4 translaminar space was identified fluoroscopically. The skin was anesthetized via a 25-gauge, 1.5-inch needle with 1% lidocaine solution. At this point, a 22-gauge short bevel spinal needle was atraumatically introduced and advanced under fluoroscopic guidance into the region of the L3/4 translaminar space. Depth was confirmed on lateral view. Radiological data, including multiple fluoroscopic views of the lumbar spine, reveal a spinal needle at the L3/4 translaminar space. Lateral views then show placement of the needle in the epidural space. Subsequent views show contrast material flowing superiorly and inferiorly in the epidural space. No vascular or intrathecal uptake is observed. At this point, using loss of resistance technique with saline and air, the epidural space was entered. This was confirmed following negative aspiration with injection of approximately 1.5 cc of Isovue 200, showing excellent epidural flow without vascular or intrathecal uptake. At this point, 1cc of 1% lidocaine solution combined with 3cc or 20mg of dexamethasone and 6mg of betamethasone was injected without incident. The patient tolerated the procedure well without signs or symptoms of complications prior to transfer to the recovery area continued monitoring without incident. The patient was then transferred to the recovery area where they were observed for an appropriate period of time after the injection. The patient reported a VAS score of 6 prior to the procedure and a post- procedure VAS of 0. POST OP INSTRUCTIONS The patient was provided a Pain Log to continue to record their response to the target-specific procedure prior to follow-up visit with their referring physician. Additionally, specific post-injection care instructions and a contact number to our office were provided if concerns arise regarding possible complications associated with the procedure are suspected.
== END 2021-04-28 12:08 | disposition home or self-care (01) ==
PROVIDERS: PCP Family Medicine; Referring Provider Physical Medicine & Rehabilitation; Visit Provider Physical Medicine & Rehabilitation
DX: M51.16 Intervertebral disc disorders with radiculopathy, lumbar region (principal); M48.061 Spinal stenosis, lumbar region without neurogenic claudication
CPT/HCPCS: 62323; 99152; J0702; J1100; J2250; J3010

== ENCOUNTER → 2022-06-21 15:19 | Outpatient (CLI) | payer MEDICARE, OTHER, SELFPAY ==
--- NOTE | 2022-06-21 | DI.MG.S_ITS ---
BILATERAL DIGITAL SCREENING MAMMOGRAM 3D/2D WITH CAD: 06/21/2022 CLINICAL: Routine screening. Family history of breast cancer. Comparison is made to exams dated: 03/19/2021 mammogram, 03/17/2020 mammogram, and 03/16/2019 mammogram - [facility]. Both breasts are heterogeneously dense, which may obscure small masses (category c / 51-75% glandular tissue). Current study was also evaluated with a Computer Aided Detection (CAD) system. No significant masses, calcifications, or other findings are seen in either breast. There has been no significant interval change. IMPRESSION: NEGATIVE There is no mammographic evidence of malignancy. A 1 year screening mammogram is recommended. Based on the Tyrer Cuzick model (a risk assessment model) the patient's lifetime risk is 19.2% and her 10 year risk is 12.5%. According to the ACR, ACS, and NCCN guidelines, an annual breast MRI exam along with mammogram is recommended if the patient's lifetime risk is 20% or greater. This exam was interpreted at Station ID: [id number]. NOTE: For mammograms, a report in lay terms will be sent to the patient. Approximately 15% of breast malignancies will not be visualized mammographically. In the management of a palpable breast mass, a negative mammogram must not discourage biopsy of a clinically suspicious lesion. Electronically Signed By: Héctor thomas/roxanna:06/22/2022 09:03:53 letter sent: Normal Exam ACR BI-RADS Category 1: Negative 3341F
== END ==
PROVIDERS: PCP Family Medicine; Referring Provider Family Medicine; Visit Provider Family Medicine
DX: Z12.31 Encounter for screening mammogram for malignant neoplasm of breast (principal); Z80.3 Family history of malignant neoplasm of breast
CPT/HCPCS: 77063; 77067

== ENCOUNTER → 2022-09-30 08:12 | Outpatient (CLI) | payer MEDICARE, OTHER, SELFPAY ==
[2022-09-30 08:46] LABS: Hematocrit 41.3 % (36-46); Hemoglobin 14.2 g/dL (12.0-16.0); Mean Corpuscular HGB Conc 34.4 % (30-36); Mean Corpuscular Hemoglobin 33.5 PG (26-34); Mean Corpuscular Volume 97.5 fL (80-100); Platelet Count 324 X10^3/uL (150-400); Red Blood Cell Count 4.24 X10^6/uL (4.0-5.2); Red Cell Distribution Width 13.5 % (11.6-14.8); White Blood Cell Count 5.8 X10^3/uL (4.5-11.0)
[2022-09-30 08:59] LABS: Alanine Aminotransferase 21 IU/L (<35); Albumin 4.4 g/dL (3.5-5.0); Albumin Globulin Ratio 1.5 (1.0-2.8); Alkaline Phosphatase 56 U/L (38-126); Aspartate Aminotransferase 30 IU/L (14-36); BUN Creatinine Ratio 27.6 (6-22); Bilirubin Total 0.9 mg/dL (0.2-1.3); Blood Urea Nitrogen 21 mg/dL (7-17); Calcium 9.4 mg/dL (8.4-10.2); Carbon Dioxide 27 mmol/L (22-32); Chloride 103 mmol/L (98-107); Cholesterol 209 mg/dL (140-199); Estimated Glomerular Filt Rate > 60 mL/min (>60); Glucose 109 mg/dL (80-110); HEMOLYSIS < 15 (0-50); Potassium 5.2 mmol/L (3.4-5.1); Sodium 137 mmol/L (137-145); Total Protein 7.4 g/dL (6.3-8.2); Triglycerides 96 mg/dL (35-150)
[2022-09-30 09:14] LABS: Vitamin D 25 Hydroxy (D3) 44.7 ng/mL (30.0-100.0)
[2022-09-30 09:28] LABS: TSH w/ Reflex to FT4 3.23 uIU/mL (0.47-4.68)
[2022-09-30 09:57] LABS: HDL Cholesterol 107 mg/dL (40-60); LDL Cholesterol Calculated 83 mg/dL (<100)
== END ==
PROVIDERS: PCP Internal Medicine; Referring Provider Internal Medicine; Visit Provider Internal Medicine
DX: E55.9 Vitamin D deficiency, unspecified (principal); E78.2 Mixed hyperlipidemia; I10 Essential (primary) hypertension; Z85.820 Personal history of malignant melanoma of skin; M81.0 Age-related osteoporosis without current pathological fracture
CPT/HCPCS: 36415; 80053; 80061; 82306; 84443; 85027

== ENCOUNTER → 2022-12-20 10:13 | Outpatient (CLI) | payer MEDICARE, OTHER, SELFPAY ==
--- NOTE | 2022-12-20 10:13 | DI.RAD.S_ITS ---
Bone Density Report Name: RADHA GONCALVES Age: 72 Sex: Female Ethnicity: White Date of : 1950 Indication: osteopenia; monitoring treatment; Referring Provider: ANJELICA SHORE Study: Bone densitometry was performed. Exam Date: December 20, 2022 Accession number: [id number] Bone Density: Region BMD T-score Z-score Classification AP Spine(L1, L2, L3) 0.908 -1.0 1.1 Normal Femoral Neck (Left) 0.543 -2.8 -0.9 Osteoporosis Total Hip (Left) 0.676 -2.2 -0.6 Osteopenia Femoral Neck (Right) 0.528 -2.9 -1.0 Osteoporosis Total Hip (Right) 0.639 -2.5 -0.9 Osteoporosis Total Hip Mean 0.658 -2.4 -0.8 Osteopenia World Health Organization criteria for BMD impression classify patients as: Normal (T-score at or above -1.0), Osteopenia (T-score between -1.0 and -2.5), or Osteoporosis (T-score at or below -2.5). 10-year Fracture Risk: FRAX not reported because: Some T-score for Spine Total or Hip Total or Femoral Neck at or below -2.5 Treated for osteoporosis Previous Exams: -- Region Exam Age BMD T-score BMD Change BMD Change Date g/cm2 vs Baseline vs Previous -- AP Spine (L1-L3) 12/20/2022 72 0.908 -1.0 -0.068 (-7.0%)# -0.039 (-4.1%)# 12/18/2020 70 0.947 -0.6 -0.029 (-3.0%)* -0.002 (-0.2%) 03/15/2018 68 0.948 -0.6 -0.027 (-2.8%)* -0.014 (-1.5%) 01/27/2016 66 0.963 -0.5 -0.013 (-1.4%) 0.016 (1.7%) 05/05/2010 60 0.947 -0.6 -0.029 (-3.0%)* -0.006 (-0.6%) 01/12/2008 58 0.953 -0.6 -0.023 (-2.4%)* -0.023 (-2.4%)* 10/04/2003 53 0.976 -0.4 Total Hip(Left) 12/20/2022 72 0.676 -2.2 -0.162 (-19.4%)# -0.028 (-4.0%)# 12/18/2020 70 0.704 -1.9 -0.134 (-16.0%)* -0.015 (-2.1%) 03/15/2018 68 0.719 -1.8 -0.119 (-14.3%)* -0.038 (-5.1%)* 01/27/2016 66 0.757 -1.5 -0.081 (-9.7%)* 0.007 (1.0%) 05/05/2010 60 0.750 -1.6 -0.089 (-10.6%)* 0.008 (1.0%) 01/12/2008 58 0.742 -1.6 -0.096 (-11.5%)* -0.096 (-11.5%)* 10/04/2003 53 0.838 -0.8 Total Hip(Right) 12/20/2022 72 0.639 -2.5 -0.119 (-15.7%)# -0.028 (-4.2%)# 12/18/2020 70 0.668 -2.2 -0.091 (-12.0%)* -0.037 (-5.2%)* 03/15/2018 68 0.704 -1.9 -0.054 (-7.1%)* 0.008 (1.1%) 01/27/2016 66 0.697 -2.0 -0.062 (-8.2%)* -0.028 (-3.9%)* 05/05/2010 60 0.725 -1.8 -0.034 (-4.4%)* -0.010 (-1.4%) 01/12/2008 58 0.735 -1.7 -0.024 (-3.1%) -0.024 (-3.1%) 10/04/2003 53 0.759 -1.5 -- *Denotes significance at 95% confidence level, LSC for AP Spine = 0.022 g/cm2, LSC for Total Hip = 0.027 g/cm2 Rate of change results reflect vertebral levels common to all scans # Denotes dissimilar scan types or analysis methods Impression: The patient has osteoporosis, based on the Right Femoral Neck T-score. No significant bone loss was observed. Discussion: PATIENT UNDER TREATMENT WITH NO SIGNIFICANT BMD LOSS SINCE LAST EXAM. In an untreated patient, BMD typically declines with age. A lack of decline or gain is usually a sign that treatment is efficacious and fracture risk is reduced. It is important to ask patients whether they are taking their medications and to encourage continued and appropriate compliance with their osteoporosis therapies to reduce fracture risk. It is also important to review their risk factors and encourage appropriate calcium and vitamin D intakes, exercise, fall prevention and other lifestyle measures. Follow-Up: Consider a repeat BMD and Vertebral Fracture Assessment (VFA) exam in 2 years or sooner if medically necessary, to reassess this patient's status. Reported by: JOHANNY BRUNO M.D. on 12/20/2022 10:42:00 AM.
== END ==
PROVIDERS: Family Provider Internal Medicine; PCP Internal Medicine; Referring Provider Internal Medicine; Visit Provider Internal Medicine
DX: M81.0 Age-related osteoporosis without current pathological fracture (principal); Z78.0 Asymptomatic menopausal state; Z90.710 Acquired absence of both cervix and uterus
CPT/HCPCS: 77080

== ENCOUNTER 2022-12-27 13:45 | Outpatient (RCR) | payer MEDICARE, OTHER, SELFPAY ==
--- NOTE | 2022-10-11 17:17 | PT.OIE ---
Current Diagnoses Sciatica, unspecified side (10/11/22) Past Medical History (Last Updated 09/27/22 @ 08:00 by Jasen Sanford MD) Actinic keratosis Age-related osteoporosis without current pathological fracture Chicken pox Essential hypertension Fibroids (~1989) Herniated nucleus pulposus, L3-4 right Hypertension Kidney stones (~2017) Lumbar radiculopathy Measles Mixed hyperlipidemia Mumps Skin cancer Tinnitus (~1999) Past Surgical History (Last Reviewed 06/07/22 @ 09:56 by ZULEYKA Watson) History of surgery (~2005) History of tonsillectomy (~1956) Melanoma (~1980) Ruptured ovarian cyst (~1983) [place] teeth extracted Visit Care Team Role Provider Type Jasen Sanford MD Family Provider Physician Primary Care Provider Specialty: Internal Medicine Address: [address] [place] [address] Email: [email or web address] Deja Mera DO Attending Provider Physician Referring Provider Specialty: Family Practice Address: [address] [place] [address] Email: [email or web address] Physical Therapy Initial Evaluation PT-OP-A Visit Information Start: 10/11/22 15:26 Freq: Status: Active Protocol: Document 10/11/22 15:26 AB (Rec: 10/11/22 17:17 AB [id number]) Out-Patient Physical Therapy Visit Information Visit Information Visit Type Initial Evaluation Visit Start Time 15:30 Visit Stop Time 16:15 Total Visit Minutes 45 Visit Number 1 Number of MEDICINE WORKER Visits 0 Evaluation Information Evaluation Date 10/11/22 Precautions Precautions HTN (controlled), hyperlipidemia (controlled), osteopenia PT-OP-B Current Condition Start: 10/11/22 15:26 Freq: Status: Active Protocol: Document 10/11/22 15:26 AB (Rec: 10/11/22 17:17 AB [id number]) Current Condition History of Current Condition Onset Date Chronic- 2021 Current Complaints BLE pain and N/T History of Current Condition Pt reports her symptoms began in 2001 insidiously with symptoms occuring every once in a while, and over the last few years it has worsened. However, after being inactive during COVID her symptoms significantly worsened. Pt reports she currently experiences BLE pain and N/T in BLE (avg 5/10), her worst pain is 8/10 when sitting, at best her pain is 3/10. She reports aspirin helps her pain , but is hesitant to take prescription medication due to their side effects. The pt reports walking and standing help to improve her symptoms. Prior Treatments and Tests Acupunture- no improvement PT- no improvement Chiropractor- no improvement X rays, MRI- mild degenerative changes; herniated nucleus pulposus L3-4 right Treatment Goals Patient/Caregiver Goals To improve her symptoms. Prior Functional Status Baseline Function- ADL's Independent Baseline Function- Mobility Independent Baseline Function- Gait No abnormalities Baseline Function- Work/School Retired Baseline Function- Recreation/Hobbies Bicycling, walking Current Functional Impairments (Reported) Functional Limitations- Other No limitations, as she tries to push through her symptoms PT-OP-C Subjective Start: 10/11/22 15:26 Freq: Status: Active Protocol: Document 10/11/22 15:26 AB (Rec: 10/11/22 17:17 AB [id number]) OP-PT Subjective Patient Comments Patient Comments See hx of current condition Patient Reported Progress Worse Patient Questionnaires Oswestry Low Back Index Oswestry Score 9/50 Oswestry Impairment 1 to 19% Impaired (Score 1-19) PT-OP-E Functional Tests Start: 10/11/22 15:26 Freq: Status: Active Protocol: Document 10/11/22 15:26 AB (Rec: 10/11/22 17:17 AB [id number]) Functional Tests Squat Test Score to 120 deg Comments Pt demos dynamic knee valgus PT-OP-G Mobility & Gait Start: 10/11/22 15:26 Freq: Status: Active Protocol: Document 10/11/22 15:26 AB (Rec: 10/11/22 17:17 AB [id number]) OP Gait Assessment Gait Deviations General Gait Pattern Antalgic Comments Gait Comments Lacks fluidity and appears antalgic; genu varum noted in standing PT-OP-K Range of Motion Start: 10/11/22 15:26 Freq: Status: Active Protocol: Document 10/11/22 15:26 AB (Rec: 10/11/22 17:17 AB [id number]) Lumbar Spine Range of Motion Lumbar Spine Active Degrees Testing Position Standing Extension 30 Rotation Left 50 Rotation Right 50 Comments flexion: fingers to floor SB bilaterally: to fibular head (mild pain bilaterally) Hip Goniometric Range of Motion Hip Right Active Hip ROM WFL Yes Left Active Hip ROM WFL Yes PT-OP-M Strength Start: 10/11/22 15:26 Freq: Status: Active Protocol: Document 10/11/22 15:26 AB (Rec: 10/11/22 17:17 AB [id number]) Hip Strength Hip Manual Muscle Testing Right Flexion (L2) 4 Good Extension (S1) 4- Good- Abduction 4- Good- Adduction 4 Good External Rotation 4- Good- Internal Rotation 4- Good- Comments Denies pain Left Flexion (L2) 4 Good Extension (S1) 4- Good- Abduction 4- Good- Adduction 4 Good External Rotation 4- Good- Internal Rotation 4- Good- Comments Denies pain Knee Strength Knee Manual Muscle Testing Right Flexion (S2) 4+ Good+ Extension (L3) 4+ Good+ Comments Denies pain Left Flexion (S2) 4+ Good+ Extension (L3) 4+ Good+ Comments Denies pain Ankle/Foot Strength Ankle and Foot Manual Muscle Testing Left Dorsiflexion (L4) 5 Normal Plantarflexion (S1) 4+ Good+ Eversion (S1) 5 Normal Comments Denies pain Right Dorsiflexion (L4) 5 Normal Plantarflexion (S1) 4+ Good+ Eversion (S1) 5 Normal Comments Denies pain PT-OP-Q Treatments Start: 10/11/22 15:26 Freq: Status: Active Protocol: Document 10/11/22 15:26 AB (Rec: 10/11/22 17:17 AB [id number]) Therapeutic Exercises Supine Exercises 3 Supine Exercise Name Bridge + TrA brace Side bilateral Reps/Minutes x5 2 Supine Exercise Name Pelvic tilts to 6 and 12 oclock Side bilateral Reps/Minutes x5 ea Comments will be performed with timer at home 1 Supine Exercise Name LTRs Side bilateral Reps/Minutes x5 ea Comments will be performed with timer at home Other Exercises 1 Other Exercise Name Tall kneeling hip CARS ( rotations) Side bilateral Reps/Minutes x5 ea PT-OP-T Assessment and Plan Start: 10/11/22 15:26 Freq: Status: Active Protocol: Document 10/11/22 15:26 AB (Rec: 10/11/22 17:17 AB [id number]) Physical Therapy Assessment Rehab Potential Rehabilitation Potential Good Evaluation Complexity Number of Personal Factors/Comorbidities 1-2 Number of Body Systems Impaired 1-2 Clinical Presentation at Evaluation Stable Impairments Impairments Functional Mobility,Pain, Strength Goals Four Impairment HEP Short Term Goal (STG) Pt to demonstrate compliance with HEP as demonstrated by recalling 75% of exercises for progression in therapy. STG Duration 3 Snf Goal (LTG) Pt to demonstrate independence with HEP as demonstrated by recalling 100% of exercises for dishcarge to IND HEP. LTG Duration 6 Three Impairment Modified Oswestry score Short Term Goal (STG) Pt's Modified Oswestry score to improve to 5/50 or better to show improving symptoms and QOL. STG Duration 4 Snf Goal (LTG) Pt's Modified Oswestry score to improve to 0/50 to demonstrate resolved symptoms and improved QOL. LTG Duration 6 Two Impairment Functional mobility- squatting Short Term Goal (STG) Pt to perform body weight squat without significant dynamic knee valgus noted in order to demonstrate improved mechanics, strength and neuromuscular control to perform functional activities. STG Duration 4 Snf Goal (LTG) Pt to perform 10# squat without significant dynamic knee valgus noted in order to demonstrate improved mechanics , strength and neuromuscular control to perform functional activities. One Impairment LE weakness Short Term Goal (STG) Pt's LE MMT scores to improve to 4+/5 or better to show improving strength to perform daily and functional activities and to decrease symptoms. STG Duration 4 Snf Goal (LTG) Pt's LE MMT scores to improve to 5/5 to show improved strength to perform daily and functional activities and to decrease symptoms. LTG Duration 6 Assessment Summary Assessment Bryanna Hernandez is a 72 year old female patient presenting to outpatient PT clinic with complaints of chronic BLE pain and N/T. No red flags were present during review of constitutional symptoms. Today 's PT examination revealed LE weakness, pain which was reproduced with lumbar spine AROM testing, and biomechanic deficits. Based on these findings, the pt would benefit from a trial of skilled PT to improve these deficits in order to resolved her symptoms and improve her level of function. The pt's rehab potential is good based on her active lifestyle, motivation and positive attitude. Physical Therapy Plan Frequency and Duration Frequency of Treatment 2x/Week Duration of treatment (weeks) 6 Plan of Care Start Date 10/11/22 Plan of Care End Date 11/22/22 Therapeutic Interventions Therapeutic Interventions Home Exercise Program,Joint Mobilizations,Manual Therapy, Neuromuscular Re-education, Patient/Caregiver Education, Self-Care/Home Management,Soft Tissue Mobilization,Taping, Therapeutic Activities, Therapeutic Exercises Modalities Cold Pack/Ice Massage,Electric Stimulation,Hot Packs, Traction- Mechanical Next Visit Focus/Plan Next Note Type Treatment Note Next Visit Plan Review HEP. Add LE and core mobility, strengthening and neuromuscular re-ed exercises as indicated.
--- NOTE | 2022-10-11 17:17 | PT.OPPOC ---
Physical, Occupational & Speech Therapy At [facility] Current Diagnoses Sciatica, unspecified side (10/11/22) Visit Care Team Role Provider Type Jasen Sanford MD Family Provider Physician Primary Care Provider Specialty: Internal Medicine Address: [address] [place] [address], [id number] Email: [email or web address] Deja Mera DO Attending Provider Physician Referring Provider Specialty: Family Practice Address: [address] [place] [address], [facility] [place], [address] Email: [email or web address] Plan Of Care PT-OP-T Assessment and Plan Start: 10/11/22 15:26 Freq: Status: Active Protocol: Document 10/11/22 15:26 AB (Rec: 10/11/22 17:17 AB [id number]) Physical Therapy Assessment Rehab Potential Rehabilitation Potential Good Evaluation Complexity Number of Personal Factors/Comorbidities 1-2 Number of Body Systems Impaired 1-2 Clinical Presentation at Evaluation Stable Impairments Impairments Functional Mobility,Pain, Strength Goals Four Impairment HEP Short Term Goal (STG) Pt to demonstrate compliance with HEP as demonstrated by recalling 75% of exercises for progression in therapy. STG Duration 3 Banking Services Officer Goal (LTG) Pt to demonstrate independence with HEP as demonstrated by recalling 100% of exercises for dishcarge to IND HEP. LTG Duration 6 Three Impairment Modified Oswestry score Short Term Goal (STG) Pt's Modified Oswestry score to improve to 5/50 or better to show improving symptoms and QOL. STG Duration 4 Usp Goal (LTG) Pt's Modified Oswestry score to improve to 0/50 to demonstrate resolved symptoms and improved QOL. LTG Duration 6 Two Impairment Functional mobility- squatting Short Term Goal (STG) Pt to perform body weight squat without significant dynamic knee valgus noted in order to demonstrate improved mechanics, strength and neuromuscular control to perform functional activities. STG Duration 4 Usp Goal (LTG) Pt to perform 10# squat without significant dynamic knee valgus noted in order to demonstrate improved mechanics , strength and neuromuscular control to perform functional activities. One Impairment LE weakness Short Term Goal (STG) Pt's LE MMT scores to improve to 4+/5 or better to show improving strength to perform daily and functional activities and to decrease symptoms. STG Duration 4 Usp Goal (LTG) Pt's LE MMT scores to improve to 5/5 to show improved strength to perform daily and functional activities and to decrease symptoms. LTG Duration 6 Assessment Summary Assessment Bryanna Hernandez is a 72 year old female patient presenting to outpatient PT clinic with complaints of chronic BLE pain and N/T. No red flags were present during review of constitutional symptoms. Today 's PT examination revealed LE weakness, pain which was reproduced with lumbar spine AROM testing, and biomechanic deficits. Based on these findings, the pt would benefit from a trial of skilled PT to improve these deficits in order to resolved her symptoms and improve her level of function. The pt's rehab potential is good based on her active lifestyle, motivation and positive attitude. Physical Therapy Plan Frequency and Duration Frequency of Treatment 2x/Week Duration of treatment (weeks) 6 Plan of Care Start Date 10/11/22 Plan of Care End Date 11/22/22 Therapeutic Interventions Therapeutic Interventions Home Exercise Program,Joint Mobilizations,Manual Therapy, Neuromuscular Re-education, Patient/Caregiver Education, Self-Care/Home Management,Soft Tissue Mobilization,Taping, Therapeutic Activities, Therapeutic Exercises Modalities Cold Pack/Ice Massage,Electric Stimulation,Hot Packs, Traction- Mechanical Next Visit Focus/Plan Next Note Type Treatment Note Next Visit Plan Review HEP. Add LE and core mobility, strengthening and neuromuscular re-ed exercises as indicated. Plan of Care Dates Plan of Care Start Date 10/11/22 Plan of Care End Date 11/22/22 Electronically Signed by: Vitaliy Sweeney, PT 10/11/22 0854 If you are in agreement with this Plan of Care, please return a signed and dated copy. I have reviewed this Plan of Care and certify that the skilled therapy services above are required to meet the patient?s needs. Physician Signature Date Printed Name and Credentials Clinical Instructor Signature Printed Name and Credentials
--- NOTE | 2022-10-13 10:55 | PT.OTN ---
Current Diagnoses Sciatica, unspecified side (10/13/22) Physical Therapy Treatment Note PT-OP-A Visit Information Start: 10/11/22 15:26 Freq: Status: Active Protocol: Document 10/13/22 10:34 AB (Rec: 10/13/22 10:36 AB [id number]) Out-Patient Physical Therapy Visit Information Visit Information Visit Type Treatment Note Visit Start Time 09:15 Visit Stop Time 10:00 Total Visit Minutes 45 Visit Number 2 Number of MANUFACTURING ENGINEER SUPERVISOR Visits 0 PT-OP-B Current Condition Start: 10/11/22 15:26 Freq: Status: Active Protocol: Document 10/11/22 15:26 AB (Rec: 10/11/22 17:17 AB [id number]) Current Condition History of Current Condition Onset Date - 2021 Current Complaints BLE pain and N/T History of Current Condition Pt reports her symptoms began in 2001 insidiously with symptoms occuring every once in a while, and over the last few years it has worsened. However, after being inactive during COV her symptoms significantly worsened. Pt reports she currently experiences BLE pain and N/T in BLE (avg 5/10), her worst pain is 8/10 when sitting, at best her pain is 3/10. She reports aspirin helps her pain , but is hesitant to take prescription medication due to their side effects. The pt reports walking and standing help to improve her symptoms. Prior Treatments and Tests Acupunture- no improvement PT- no improvement Chiropractor- no improvement X rays, MRI- mild degenerative changes; herniated nucleus pulposus L3-4 right Treatment Goals Patient/Caregiver Goals To improve her symptoms. Prior Functional Status Baseline Function- ADL's Independent Baseline Function- Mobility Independent Baseline Function- Gait No abnormalities Baseline Function- Work/School Retired Baseline Function- Recreation/Hobbies Bicycling, walking Current Functional Impairments (Reported) Functional Limitations- Other No limitations, as she tries to push through her symptoms PT-OP-C Subjective Start: 10/11/22 15:26 Freq: Status: Active Protocol: Document 10/13/22 09:20 AB (Rec: 10/13/22 10:34 AB [id number]) OP-PT Subjective Patient Comments Patient Comments The pt reports she has been compliant with her HEP without any symptoms. She reports she felt better the day after her intial exam, however she then had a 4 hour car trip which aggravated her symptoms. Patient Reported Progress Same PT-OP-E Functional Tests Start: 10/11/22 15:26 Freq: Status: Active Protocol: Document 10/11/22 15:26 AB (Rec: 10/11/22 17:17 AB [id number]) Functional Tests Squat Test Score to 120 deg Comments Pt demos dynamic knee valgus PT-OP-G Mobility & Gait Start: 10/11/22 15:26 Freq: Status: Active Protocol: Document 10/11/22 15:26 AB (Rec: 10/11/22 17:17 AB [id number]) OP Gait Assessment Gait Deviations General Gait Pattern Antalgic Comments Gait Comments Lacks fluidity and appears antalgic; genu varum noted in standing PT-OP-K Range of Motion Start: 10/11/22 15:26 Freq: Status: Active Protocol: Document 10/11/22 15:26 AB (Rec: 10/11/22 17:17 AB [id number]) Lumbar Spine Range of Motion Lumbar Spine Active Degrees Testing Position Standing Extension 30 Rotation Left 50 Rotation Right 50 Comments flexion: fingers to floor SB bilaterally: to fibular head (mild pain bilaterally) Hip Goniometric Range of Motion Hip Right Active Hip ROM WFL Yes Left Active Hip ROM WFL Yes PT-OP-M Strength Start: 10/11/22 15:26 Freq: Status: Active Protocol: Document 10/11/22 15:26 AB (Rec: 10/11/22 17:17 AB [id number]) Hip Strength Hip Manual Muscle Testing Right Flexion (L2) 4 Good Extension (S1) 4- Good- Abduction 4- Good- Adduction 4 Good External Rotation 4- Good- Internal Rotation 4- Good- Comments Denies pain Left Flexion (L2) 4 Good Extension (S1) 4- Good- Abduction 4- Good- Adduction 4 Good External Rotation 4- Good- Internal Rotation 4- Good- Comments Denies pain Knee Strength Knee Manual Muscle Testing Right Flexion (S2) 4+ Good+ Extension (L3) 4+ Good+ Comments Denies pain Left Flexion (S2) 4+ Good+ Extension (L3) 4+ Good+ Comments Denies pain Ankle/Foot Strength Ankle and Foot Manual Muscle Testing Left Dorsiflexion (L4) 5 Normal Plantarflexion (S1) 4+ Good+ Eversion (S1) 5 Normal Comments Denies pain Right Dorsiflexion (L4) 5 Normal Plantarflexion (S1) 4+ Good+ Eversion (S1) 5 Normal Comments Denies pain PT-OP-Q Treatments Start: 10/11/22 15:26 Freq: Status: Active Protocol: Document 10/13/22 09:20 AB (Rec: 10/13/22 10:34 AB [id number]) Cardio Equipment Recumbent Bicycle Duration (Minutes) 5 Resistance 0 Seat Position 2 Therapeutic Exercises Supine Exercises 3 Supine Exercise Name Bridge + TrA brace Reps/Minutes 2x10 2 Supine Exercise Name Anterior-posterior pelvic titls Reps/Minutes 2 mins 1 Supine Exercise Name LTRs Side bilateral Reps/Minutes 2 mins Sitting Exercises 1 Sitting Exercise Name 3 way lumbar flexion stretch with mexican ball Equipment Used green mexican ball Reps/Minutes x 1 min Comments hold each for a few seconds Standing Exercises 4 Standing Exercise Name Paloff press Side bilateral Resistance orange theraband Reps/Minutes 1x10 3 Standing Exercise Name Hip ext at 45 deg of ABD Side bilateral Reps/Minutes 2x10 Comments light UE support 2 Standing Exercise Name Hip flexion Side bilateral Reps/Minutes 2x10 Comments no UE support 1 Standing Exercise Name Crab walks Side bilateral Resistance level 2 latex band Reps/Minutes x 2 laps Comments 1 lap= 5 ft one direction and back (10ft total) Other Exercises 1 Other Exercise Name Tall kneeling hip CARs Side bilateral Reps/Minutes 2x5 ea PT-OP-T Assessment and Plan Start: 10/11/22 15:26 Freq: Status: Active Protocol: Document 10/13/22 09:20 AB (Rec: 10/13/22 10:34 [id number]) Physical Therapy Assessment Assessment Summary Assessment The pt demonstrated good recall of HEP, and had no symptoms while performing these. Additional trunk and hip strengthening exercises were added, as detailed above with good tolerance overall. The pt stands with increased lumbar lordosis, therefore the pt was cued to posteriorly tilt pelvis when perofrming standing exercises in order to engage trunk muscles and improve posture. Physical Therapy Plan Next Visit Focus/Plan Next Note Type Treatment Note Next Visit Plan Assess tolerance to today's visit. Progress by adding additional trunk and LE strengthening exercises. Manual therapy and modalities as indicated.
--- NOTE | 2022-10-18 10:33 | PT.OTN ---
Current Diagnoses Sciatica, unspecified side (10/13/22) Physical Therapy Treatment Note PT-OP-A Visit Information Start: 10/11/22 15:26 Freq: Status: Active Protocol: Document 10/18/22 10:20 AB (Rec: 10/18/22 10:33 AB [id number]) Out-Patient Physical Therapy Visit Information Visit Information Visit Type Treatment Note Visit Start Time 09:15 Visit Stop Time 10:00 Total Visit Minutes 45 Visit Number 3 Number of SALES SUPPORT ASSISTANT Visits 0 PT-OP-B Current Condition Start: 10/11/22 15:26 Freq: Status: Active Protocol: Document 10/11/22 15:26 AB (Rec: 10/11/22 17:17 AB [id number]) Current Condition History of Current Condition Onset Date - 2021 Current Complaints BLE pain and N/T History of Current Condition Pt reports her symptoms began in 2001 insidiously with symptoms occuring every once in a while, and over the last few years it has worsened. However, after being inactive during COV her symptoms significantly worsened. Pt reports she currently experiences BLE pain and N/T in BLE (avg 5/10), her worst pain is 8/10 when sitting, at best her pain is 3/10. She reports aspirin helps her pain , but is hesitant to take prescription medication due to their side effects. The pt reports walking and standing help to improve her symptoms. Prior Treatments and Tests Acupunture- no improvement PT- no improvement Chiropractor- no improvement X rays, MRI- mild degenerative changes; herniated nucleus pulposus L3-4 right Treatment Goals Patient/Caregiver Goals To improve her symptoms. Prior Functional Status Baseline Function- ADL's Independent Baseline Function- Mobility Independent Baseline Function- Gait No abnormalities Baseline Function- Work/School Retired Baseline Function- Recreation/Hobbies Bicycling, walking Current Functional Impairments (Reported) Functional Limitations- Other No limitations, as she tries to push through her symptoms PT-OP-C Subjective Start: 10/11/22 15:26 Freq: Status: Active Protocol: Document 10/18/22 10:20 AB (Rec: 10/18/22 10:33 AB [id number]) OP-PT Subjective Patient Comments Patient Comments Pt reports her hip pain is at 6/10 this morning; not different than previously. Patient Reported Progress Same PT-OP-E Functional Tests Start: 10/11/22 15:26 Freq: Status: Active Protocol: Document 10/11/22 15:26 AB (Rec: 10/11/22 17:17 AB [id number]) Functional Tests Squat Test Score to 120 deg Comments Pt demos dynamic knee valgus PT-OP-G Mobility & Gait Start: 10/11/22 15:26 Freq: Status: Active Protocol: Document 10/11/22 15:26 AB (Rec: 10/11/22 17:17 AB [id number]) OP Gait Assessment Gait Deviations General Gait Pattern Antalgic Comments Gait Comments Lacks fluidity and appears antalgic; genu varum noted in standing PT-OP-K Range of Motion Start: 10/11/22 15:26 Freq: Status: Active Protocol: Document 10/11/22 15:26 AB (Rec: 10/11/22 17:17 AB [id number]) Lumbar Spine Range of Motion Lumbar Spine Active Degrees Testing Position Standing Extension 30 Rotation Left 50 Rotation Right 50 Comments flexion: fingers to floor SB bilaterally: to fibular head (mild pain bilaterally) Hip Goniometric Range of Motion Hip Right Active Hip ROM WFL Yes Left Active Hip ROM WFL Yes PT-OP-M Strength Start: 10/11/22 15:26 Freq: Status: Active Protocol: Document 10/11/22 15:26 AB (Rec: 10/11/22 17:17 AB [id number]) Hip Strength Hip Manual Muscle Testing Right Flexion (L2) 4 Good Extension (S1) 4- Good- Abduction 4- Good- Adduction 4 Good External Rotation 4- Good- Internal Rotation 4- Good- Comments Denies pain Left Flexion (L2) 4 Good Extension (S1) 4- Good- Abduction 4- Good- Adduction 4 Good External Rotation 4- Good- Internal Rotation 4- Good- Comments Denies pain Knee Strength Knee Manual Muscle Testing Right Flexion (S2) 4+ Good+ Extension (L3) 4+ Good+ Comments Denies pain Left Flexion (S2) 4+ Good+ Extension (L3) 4+ Good+ Comments Denies pain Ankle/Foot Strength Ankle and Foot Manual Muscle Testing Left Dorsiflexion (L4) 5 Normal Plantarflexion (S1) 4+ Good+ Eversion (S1) 5 Normal Comments Denies pain Right Dorsiflexion (L4) 5 Normal Plantarflexion (S1) 4+ Good+ Eversion (S1) 5 Normal Comments Denies pain PT-OP-Q Treatments Start: 10/11/22 15:26 Freq: Status: Active Protocol: Document 10/18/22 10:20 AB (Rec: 10/18/22 10:33 AB [id number]) Cardio Equipment Recumbent Bicycle Duration (Minutes) 5 Resistance 6 Seat Position 2 Therapeutic Exercises Supine Exercises 1 Supine Exercise Name LTRs Reps/Minutes 2 min Sitting Exercises 1 Sitting Exercise Name 3 way lumbar flexion stretch Reps/Minutes 2 min Comments 3-5 sec hold in each position Standing Exercises 4 Standing Exercise Name Hip ext at 45 deg of ABD Side bilateral 3 Standing Exercise Name Hip flexion Side bilateral Reps/Minutes 2x10 ea 2 Standing Exercise Name Paloff press Side bilateral Resistance orange TB Reps/Minutes 2x10 ea 1 Standing Exercise Name Crab walks Resistance level 2 latex band Reps/Minutes 2 laps Comments 1 lap= 10ft + 10ft Neuro Re-Education Treatment Coordination Activities 2 Details Bird dogs Reps/Duration 2x5ea 1 Details Deadbugs Reps/Duration 2x10ea Comments 1st set: feet flat on table; UE with opp LE 2nd set: LEs in table top position; UE with opp LE PT-OP-T Assessment and Plan Start: 10/11/22 15:26 Freq: Status: Active Protocol: Document 10/18/22 10:20 AB (Rec: 10/18/22 10:33 AB [id number]) Physical Therapy Assessment Assessment Summary Assessment Deadbugs and bird dops were added to improve the coordination of activating trunk muscles while moving extremities. The pt initially required verbal and tactile cues for core brace, but then was able to implement with good form. The pt also requires verbal and tactile cues to avoid lumbar lordsis by engaging core muscles, especially with standing exercises. She denied an increase in symptoms throughout the session. The pt continues to benefit from skilled PT to improve her deficits and symptoms.
--- NOTE | 2022-10-20 10:45 | PT.OTN ---
Current Diagnoses Sciatica, unspecified side (10/13/22) Physical Therapy Treatment Note PT-OP-A Visit Information Start: 10/11/22 15:26 Freq: Status: Active Protocol: Document 10/20/22 10:00 SP (Rec: 10/20/22 10:47 SP [id number]) Out-Patient Physical Therapy Visit Information Visit Information Visit Type Treatment Note Visit Start Time 10:00 Visit Stop Time 10:45 Total Visit Minutes 45 Visit Number 4 Number of [employer]ESSING [employer]ORER Visits 1 Evaluation Information Evaluation Date 10/11/22 Precautions Precautions HTN (controlled), hyperlipidemia (controlled), osteopenia PT-OP-B Current Condition Start: 10/11/22 15:26 Freq: Status: Active Protocol: Document 10/11/22 15:26 AB (Rec: 10/11/22 17:17 AB [id number]) Current Condition History of Current Condition Onset Date - 2021 Current Complaints BLE pain and N/T History of Current Condition Pt reports her symptoms began in 2001 insidiously with symptoms occuring every once in a while, and over the last few years it has worsened. However, after being inactive during her symptoms significantly worsened. Pt reports she currently experiences BLE pain and N/T in BLE (avg 5/10), her worst pain is 8/10 when sitting, at best her pain is 3/10. She reports aspirin helps her pain , but is hesitant to take prescription medication due to their side effects. The pt reports walking and standing help to improve her symptoms. Prior Treatments and Tests Acupunture- no improvement PT- no improvement Chiropractor- no improvement X rays, MRI- mild degenerative changes; herniated nucleus pulposus L3-4 right Treatment Goals Patient/Caregiver Goals To improve her symptoms. Prior Functional Status Baseline Function- ADL's Independent Baseline Function- Mobility Independent Baseline Function- Gait No abnormalities Baseline Function- Work/School Retired Baseline Function- Recreation/Hobbies Bicycling, walking Current Functional Impairments (Reported) Functional Limitations- Other No limitations, as she tries to push through her symptoms PT-OP-C Subjective Start: 10/11/22 15:26 Freq: Status: Active Protocol: Document 10/20/22 10:00 SP (Rec: 10/20/22 10:47 SP [id number]) OP-PT Subjective Patient Comments Patient Comments Pt reports doing well with HEP , they are nice easy ones. She states her sciatic nerve was little irritated after last tx into rest of day and next day. She went on walk yesterday on [facility] and felt more limber after and no sciatic pain. She reports back pain is less with more activity typically. PT-OP-E Functional Tests Start: 10/11/22 15:26 Freq: Status: Active Protocol: Document 10/11/22 15:26 AB (Rec: 10/11/22 17:17 AB [id number]) Functional Tests Squat Test Score to 120 deg Comments Pt demos dynamic knee valgus PT-OP-G Mobility & Gait Start: 10/11/22 15:26 Freq: Status: Active Protocol: Document 10/11/22 15:26 AB (Rec: 10/11/22 17:17 AB [id number]) OP Gait Assessment Gait Deviations General Gait Pattern Antalgic Comments Gait Comments Lacks fluidity and appears antalgic; genu varum noted in standing PT-OP-K Range of Motion Start: 10/11/22 15:26 Freq: Status: Active Protocol: Document 10/11/22 15:26 AB (Rec: 10/11/22 17:17 AB [id number]) Lumbar Spine Range of Motion Lumbar Spine Active Degrees Testing Position Standing Extension 30 Rotation Left 50 Rotation Right 50 Comments flexion: fingers to floor SB bilaterally: to fibular head (mild pain bilaterally) Hip Goniometric Range of Motion Hip Right Active Hip ROM WFL Yes Left Active Hip ROM WFL Yes PT-OP-M Strength Start: 10/11/22 15:26 Freq: Status: Active Protocol: Document 10/11/22 15:26 AB (Rec: 10/11/22 17:17 AB [id number]) Hip Strength Hip Manual Muscle Testing Right Flexion (L2) 4 Good Extension (S1) 4- Good- Abduction 4- Good- Adduction 4 Good External Rotation 4- Good- Internal Rotation 4- Good- Comments Denies pain Left Flexion (L2) 4 Good Extension (S1) 4- Good- Abduction 4- Good- Adduction 4 Good External Rotation 4- Good- Internal Rotation 4- Good- Comments Denies pain Knee Strength Knee Manual Muscle Testing Right Flexion (S2) 4+ Good+ Extension (L3) 4+ Good+ Comments Denies pain Left Flexion (S2) 4+ Good+ Extension (L3) 4+ Good+ Comments Denies pain Ankle/Foot Strength Ankle and Foot Manual Muscle Testing Left Dorsiflexion (L4) 5 Normal Plantarflexion (S1) 4+ Good+ Eversion (S1) 5 Normal Comments Denies pain Right Dorsiflexion (L4) 5 Normal Plantarflexion (S1) 4+ Good+ Eversion (S1) 5 Normal Comments Denies pain PT-OP-Q Treatments Start: 10/11/22 15:26 Freq: Status: Active Protocol: Document 10/20/22 10:00 SP (Rec: 10/20/22 10:47 SP [id number]) Cardio Equipment Recumbent Bicycle Duration (Minutes) 5 Resistance 6 Seat Position 2 Therapeutic Exercises Supine Exercises sciatic nerve glide Supine Exercise Name added to HEP: Side bilateral Equipment Used grasp behind thigh, lower leg lift, AP Reps/Minutes x10 reps Comments good feedback less tension HS/ tension/tingle foot Standing Exercises 4 Standing Exercise Name Paloff press Side bilateral Resistance orange theraband (single, double last) Reps/Minutes 2x10 Comments cued soft knee, neutral pelvis , elongated posture 3 Standing Exercise Name Hip ext at 45 deg of ABD Side bilateral Reps/Minutes 2x10 Comments light UE support on TM rail, neutral pelvis/TA awareness 2 Standing Exercise Name hip flexion Side bilateral Reps/Minutes 2x10 Comments no UE support,cued elongation/ scap/core fac/ neutral pelvis improved SLS 1 Standing Exercise Name Crab walks- added to HEP Resistance level 2 latex band Reps/Minutes 2 laps Comments cued elongated posture, trail ft DF/foot clearance return Neuro Re-Education Treatment Balance Activities hurdles Details fwd, lateral (step to) Equipment 6 Comments receiprocal stepping carryover , cued elongated posture, TA- improved stab SLS time. Coordination Activities 2 Details Bird dogs Reps/Duration 2x5ea Comments Cued SerrPress, neutral LS and lift reach away, chin tuck- improved performance 1 Details Deadbugs Reps/Duration 2x10ea Comments 1st set: feet flat on table; UE with opp LE 2nd set: LEs in table top position; UE with opp LE PT-OP-T Assessment and Plan Start: 10/11/22 15:26 Freq: Status: Active Protocol: Document 10/20/22 10:00 SP (Rec: 10/20/22 10:47 SP [id number]) Physical Therapy Assessment Goals Four Impairment HEP Short Term Goal (STG) Pt to demonstrate compliance with HEP as demonstrated by recalling 75% of exercises for progression in therapy. STG Duration 3 Nursing Home Goal (LTG) Pt to demonstrate independence with HEP as demonstrated by recalling 100% of exercises for dishcarge to IND HEP. LTG Duration 6 Three Impairment Modified Oswestry score Short Term Goal (STG) Pt's Modified Oswestry score to improve to 5/50 or better to show improving symptoms and QOL. STG Duration 4 Home Designer Goal (LTG) Pt's Modified Oswestry score to improve to 0/50 to demonstrate resolved symptoms and improved QOL. LTG Duration 6 Two Impairment Functional mobility- squatting Short Term Goal (STG) Pt to perform body weight squat without significant dynamic knee valgus noted in order to demonstrate improved mechanics, strength and neuromuscular control to perform functional activities. STG Duration 4 Nursing Home Goal (LTG) Pt to perform 10# squat without significant dynamic knee valgus noted in order to demonstrate improved mechanics , strength and neuromuscular control to perform functional activities. One Impairment LE weakness Short Term Goal (STG) Pt's LE MMT scores to improve to 4+/5 or better to show improving strength to perform daily and functional activities and to decrease symptoms. STG Duration 4 Nursing Home Goal (LTG) Pt's LE MMT scores to improve to 5/5 to show improved strength to perform daily and functional activities and to decrease symptoms. LTG Duration 6 Assessment Summary Assessment Pt good response to sciatic neural glide and improved TA/ PPT neutral pelvis with cuing for reaching vs lifting toward ceiling high improved stability bird dog and bug. Pt able to carryover SLS and postural elongated corrections with improved stability during band walk and kyle stepping. Reports decrease LB recruitment with cues PPT and TA glut squeeze during hip abd and ext today. Physical Therapy Plan Frequency and Duration Frequency of Treatment 2x/Week Duration of treatment (weeks) 6 Plan of Care Start Date 10/11/22 Plan of Care End Date 11/22/22 Therapeutic Interventions Therapeutic Interventions Home Exercise Program,Joint Mobilizations,Manual Therapy, Neuromuscular Re-education, Patient/Caregiver Education, Self-Care/Home Management,Soft Tissue Mobilization,Taping, Therapeutic Activities, Therapeutic Exercises Modalities Cold Pack/Ice Massage,Electric Stimulation,Hot Packs, Traction- Mechanical Next Visit Focus/Plan Next Note Type Treatment Note Next Visit Plan add dynamic gait hallway: HTs, tandem. recheck HEP: added band walk and Le neural glides. POC:Progress by adding additional trunk and LE strengthening exercises. Manual therapy and modalities as indicated.
--- NOTE | 2022-10-25 10:59 | PT.OTN ---
Current Diagnoses Sciatica, unspecified side (10/25/22) Physical Therapy Treatment Note PT-OP-A Visit Information Start: 10/11/22 15:26 Freq: Status: Active Protocol: Document 10/25/22 10:04 AB (Rec: 10/25/22 10:58 AB [id number]) Out-Patient Physical Therapy Visit Information Visit Information Visit Type Treatment Note Visit Start Time 10:00 Visit Stop Time 10:45 Total Visit Minutes 45 Visit Number 5 Number of [employer]CHANDISER Visits 1 PT-OP-B Current Condition Start: 10/11/22 15:26 Freq: Status: Active Protocol: Document 10/11/22 15:26 AB (Rec: 10/11/22 17:17 AB [id number]) Current Condition History of Current Condition Onset Date - 2021 Current Complaints BLE pain and N/T History of Current Condition Pt reports her symptoms began in 2001 insidiously with symptoms occuring every once in a while, and over the last few years it has worsened. However, after being inactive during COV her symptoms significantly worsened. Pt reports she currently experiences BLE pain and N/T in BLE (avg 5/10), her worst pain is 8/10 when sitting, at best her pain is 3/10. She reports aspirin helps her pain , but is hesitant to take prescription medication due to their side effects. The pt reports walking and standing help to improve her symptoms. Prior Treatments and Tests Acupunture- no improvement PT- no improvement Chiropractor- no improvement X rays, MRI- mild degenerative changes; herniated nucleus pulposus L3-4 right Treatment Goals Patient/Caregiver Goals To improve her symptoms. Prior Functional Status Baseline Function- ADL's Independent Baseline Function- Mobility Independent Baseline Function- Gait No abnormalities Baseline Function- Work/School Retired Baseline Function- Recreation/Hobbies Bicycling, walking Current Functional Impairments (Reported) Functional Limitations- Other No limitations, as she tries to push through her symptoms PT-OP-C Subjective Start: 10/11/22 15:26 Freq: Status: Active Protocol: Document 10/25/22 10:04 AB (Rec: 10/25/22 10:58 AB [id number]) OP-PT Subjective Patient Comments Patient Comments The pt reports like she is making good progress, as she is noticing that she is stronger and she is also able to sleep better due to reduced symptoms. Patient Reported Progress Improving PT-OP-E Functional Tests Start: 10/11/22 15:26 Freq: Status: Active Protocol: Document 10/11/22 15:26 AB (Rec: 10/11/22 17:17 AB [id number]) Functional Tests Squat Test Score to 120 deg Comments Pt demos dynamic knee valgus PT-OP-G Mobility & Gait Start: 10/11/22 15:26 Freq: Status: Active Protocol: Document 10/11/22 15:26 AB (Rec: 10/11/22 17:17 AB [id number]) OP Gait Assessment Gait Deviations General Gait Pattern Antalgic Comments Gait Comments Lacks fluidity and appears antalgic; genu varum noted in standing PT-OP-K Range of Motion Start: 10/11/22 15:26 Freq: Status: Active Protocol: Document 10/11/22 15:26 AB (Rec: 10/11/22 17:17 AB [id number]) Lumbar Spine Range of Motion Lumbar Spine Active Degrees Testing Position Standing Extension 30 Rotation Left 50 Rotation Right 50 Comments flexion: fingers to floor SB bilaterally: to fibular head (mild pain bilaterally) Hip Goniometric Range of Motion Hip Right Active Hip ROM WFL Yes Left Active Hip ROM WFL Yes PT-OP-M Strength Start: 10/11/22 15:26 Freq: Status: Active Protocol: Document 10/11/22 15:26 AB (Rec: 10/11/22 17:17 AB [id number]) Hip Strength Hip Manual Muscle Testing Right Flexion (L2) 4 Good Extension (S1) 4- Good- Abduction 4- Good- Adduction 4 Good External Rotation 4- Good- Internal Rotation 4- Good- Comments Denies pain Left Flexion (L2) 4 Good Extension (S1) 4- Good- Abduction 4- Good- Adduction 4 Good External Rotation 4- Good- Internal Rotation 4- Good- Comments Denies pain Knee Strength Knee Manual Muscle Testing Right Flexion (S2) 4+ Good+ Extension (L3) 4+ Good+ Comments Denies pain Left Flexion (S2) 4+ Good+ Extension (L3) 4+ Good+ Comments Denies pain Ankle/Foot Strength Ankle and Foot Manual Muscle Testing Left Dorsiflexion (L4) 5 Normal Plantarflexion (S1) 4+ Good+ Eversion (S1) 5 Normal Comments Denies pain Right Dorsiflexion (L4) 5 Normal Plantarflexion (S1) 4+ Good+ Eversion (S1) 5 Normal Comments Denies pain PT-OP-Q Treatments Start: 10/11/22 15:26 Freq: Status: Active Protocol: Document 10/25/22 10:04 AB (Rec: 10/25/22 10:58 AB [id number]) Therapeutic Exercises Standing Exercises Suitcase Carry Side bilateral Resistance 5#, 7# Equipment Used DBs Reps/Minutes x 2 laps ea Comments 5# for 1st lap, 7# for 2nd; cues for neutral spine and to engage trunk mm 4 Standing Exercise Name Paloff press Side bilateral Resistance orange TB Reps/Minutes 2x10 Comments cued soft knee, neutral pelvis , elongated posture 3 Standing Exercise Name Hip ext at 45 deg of ABD Side bilateral Reps/Minutes 2x10 Comments light UE support on TM rail, neutral pelvis/TA awareness 2 Standing Exercise Name hip flexion Side bilateral Reps/Minutes 2x10 Comments no UE support,cued elongation/ scap/core fac/ neutral pelvis improved SLS 1 Standing Exercise Name Crab walks Resistance level 2 latex band Reps/Minutes 2 laps Neuro Re-Education Treatment Balance Activities SLS Surface floor Reps/Duration 2x30 sec Comments No UE support; cues for neutral spine/pelvis Coordination Activities 2 Details Bird dogs Reps/Duration 2x5ea 1 Details Deadbugs Reps/Duration 2x10ea Comments Both sets: feet flat; UE with opp LE PT-OP-T Assessment and Plan Start: 10/11/22 15:26 Freq: Status: Active Protocol: Document 10/25/22 10:04 AB (Rec: 10/25/22 10:58 AB [id number]) Physical Therapy Assessment Goals Four Impairment HEP Short Term Goal (STG) Pt to demonstrate compliance with HEP as demonstrated by recalling 75% of exercises for progression in therapy. STG Duration 3 Neonatal Intensive Care Nurse Goal (LTG) Pt to demonstrate independence with HEP as demonstrated by recalling 100% of exercises for dishcarge to IND HEP. LTG Duration 6 Three Impairment Modified Oswestry score Short Term Goal (STG) Pt's Modified Oswestry score to improve to 5/50 or better to show improving symptoms and QOL. STG Duration 4 Neonatal Intensive Care Nurse Goal (LTG) Pt's Modified Oswestry score to improve to 0/50 to demonstrate resolved symptoms and improved QOL. LTG Duration 6 Two Impairment Functional mobility- squatting Short Term Goal (STG) Pt to perform body weight squat without significant dynamic knee valgus noted in order to demonstrate improved mechanics, strength and neuromuscular control to perform functional activities. STG Duration 4 Neonatal Intensive Care Nurse Goal (LTG) Pt to perform 10# squat without significant dynamic knee valgus noted in order to demonstrate improved mechanics , strength and neuromuscular control to perform functional activities. One Impairment LE weakness Short Term Goal (STG) Pt's LE MMT scores to improve to 4+/5 or better to show improving strength to perform daily and functional activities and to decrease symptoms. STG Duration 4 Neonatal Intensive Care Nurse Goal (LTG) Pt's LE MMT scores to improve to 5/5 to show improved strength to perform daily and functional activities and to decrease symptoms. LTG Duration 6 Assessment Summary Assessment The pt demonstrates improved awareness to proper positioning and posture when performing exercises. However, she continues to require occasional cues to maintain when performing exercises. This is why bugs were regressed from table top position to marching. Additional education regarding this topic was provided today . The pt was progressed today by adding SLS and suitcase carry to improve trunk/hip strength, with good tolerance reported by the pt. She continues to benefit from skilled PT as per her POC to improve her symptoms and to continue making gains towards her goals. Physical Therapy Plan Frequency and Duration Frequency of Treatment 2x/Week Duration of treatment (weeks) 6 Plan of Care Start Date 10/11/22 Plan of Care End Date 11/22/22 Therapeutic Interventions Therapeutic Interventions Home Exercise Program,Joint Mobilizations,Manual Therapy, Neuromuscular Re-education, Patient/Caregiver Education, Self-Care/Home Management,Soft Tissue Mobilization,Taping, Therapeutic Activities, Therapeutic Exercises Modalities Cold Pack/Ice Massage,Electric Stimulation,Hot Packs, Traction- Mechanical Next Visit Focus/Plan Next Note Type Treatment Note Next Visit Plan Continue progressing to more functional strengthening exercises.
--- NOTE | 2022-10-28 14:08 | PT.OTN ---
Current Diagnoses Sciatica, unspecified side (10/28/22) Physical Therapy Treatment Note PT-OP-A Visit Information Start: 10/11/22 15:26 Freq: Status: Active Protocol: Document 10/28/22 12:52 AB (Rec: 10/28/22 14:07 AB [id number]) Out-Patient Physical Therapy Visit Information Visit Information Visit Type Treatment Note Visit Start Time 11:00 Visit Stop Time 11:45 Total Visit Minutes 45 Visit Number 6 Number of AEROSOL SUPERVISOR Visits 1 Evaluation Information Evaluation Date 10/11/22 PT-OP-B Current Condition Start: 10/11/22 15:26 Freq: Status: Active Protocol: Document 10/11/22 15:26 AB (Rec: 10/11/22 17:17 AB [id number]) Current Condition History of Current Condition Onset Date - 2021 Current Complaints BLE pain and N/T History of Current Condition Pt reports her symptoms began in 2001 insidiously with symptoms occuring every once in a while, and over the last few years it has worsened. However, after being inactive during COV her symptoms significantly worsened. Pt reports she currently experiences BLE pain and N/T in BLE (avg 5/10), her worst pain is 8/10 when sitting, at best her pain is 3/10. She reports aspirin helps her pain , but is hesitant to take prescription medication due to their side effects. The pt reports walking and standing help to improve her symptoms. Prior Treatments and Tests Acupunture- no improvement PT- no improvement Chiropractor- no improvement X rays, MRI- mild degenerative changes; herniated nucleus pulposus L3-4 right Treatment Goals Patient/Caregiver Goals To improve her symptoms. Prior Functional Status Baseline Function- ADL's Independent Baseline Function- Mobility Independent Baseline Function- Gait No abnormalities Baseline Function- Work/School Retired Baseline Function- Recreation/Hobbies Bicycling, walking Current Functional Impairments (Reported) Functional Limitations- Other No limitations, as she tries to push through her symptoms PT-OP-C Subjective Start: 10/11/22 15:26 Freq: Status: Active Protocol: Document 10/28/22 12:52 AB (Rec: 10/28/22 14:07 AB [id number]) OP-PT Subjective Patient Comments Patient Comments The pt reports continued improvement in her symptoms and strength. She feels like she is more aware of her body and to engage muscles with certain activities. Patient Reported Progress Improving PT-OP-E Functional Tests Start: 10/11/22 15:26 Freq: Status: Active Protocol: Document 10/11/22 15:26 AB (Rec: 10/11/22 17:17 AB [id number]) Functional Tests Squat Test Score to 120 deg Comments Pt demos dynamic knee valgus PT-OP-G Mobility & Gait Start: 10/11/22 15:26 Freq: Status: Active Protocol: Document 10/11/22 15:26 AB (Rec: 10/11/22 17:17 AB [id number]) OP Gait Assessment Gait Deviations General Gait Pattern Antalgic Comments Gait Comments Lacks fluidity and appears antalgic; genu varum noted in standing PT-OP-K Range of Motion Start: 10/11/22 15:26 Freq: Status: Active Protocol: Document 10/11/22 15:26 AB (Rec: 10/11/22 17:17 AB [id number]) Lumbar Spine Range of Motion Lumbar Spine Active Degrees Testing Position Standing Extension 30 Rotation Left 50 Rotation Right 50 Comments flexion: fingers to floor SB bilaterally: to fibular head (mild pain bilaterally) Hip Goniometric Range of Motion Hip Right Active Hip ROM WFL Yes Left Active Hip ROM WFL Yes PT-OP-M Strength Start: 10/11/22 15:26 Freq: Status: Active Protocol: Document 10/11/22 15:26 AB (Rec: 10/11/22 17:17 AB [id number]) Hip Strength Hip Manual Muscle Testing Right Flexion (L2) 4 Good Extension (S1) 4- Good- Abduction 4- Good- Adduction 4 Good External Rotation 4- Good- Internal Rotation 4- Good- Comments Denies pain Left Flexion (L2) 4 Good Extension (S1) 4- Good- Abduction 4- Good- Adduction 4 Good External Rotation 4- Good- Internal Rotation 4- Good- Comments Denies pain Knee Strength Knee Manual Muscle Testing Right Flexion (S2) 4+ Good+ Extension (L3) 4+ Good+ Comments Denies pain Left Flexion (S2) 4+ Good+ Extension (L3) 4+ Good+ Comments Denies pain Ankle/Foot Strength Ankle and Foot Manual Muscle Testing Left Dorsiflexion (L4) 5 Normal Plantarflexion (S1) 4+ Good+ Eversion (S1) 5 Normal Comments Denies pain Right Dorsiflexion (L4) 5 Normal Plantarflexion (S1) 4+ Good+ Eversion (S1) 5 Normal Comments Denies pain PT-OP-Q Treatments Start: 10/11/22 15:26 Freq: Status: Active Protocol: Document 10/28/22 12:52 AB (Rec: 10/28/22 14:07 AB [id number]) Cardio Equipment Recumbent Bicycle Duration (Minutes) 5 Resistance 6 Seat Position 2 Therapeutic Exercises Standing Exercises Squats Standing Exercise Name Squat to chair (tap) Reps/Minutes 2x8 Comments Used chair to determine depth for 2nd set Suitcase Carry Side bilateral Resistance 7# Equipment Used DB Reps/Minutes 2 laps ea Comments 2nd lap: added small marching 4 Standing Exercise Name Paloff press Side bilateral Resistance orange TB Reps/Minutes 2x10 Comments cued soft knee, neutral pelvis 3 Standing Exercise Name Hip ext at 45 deg of ABD Side bilateral Reps/Minutes 2x15 Comments neutral pelvis/TA awareness 2 Standing Exercise Name hip flexion Side bilateral Reps/Minutes 2x15 Comments no UE support 1 Standing Exercise Name Crab walks Resistance level 2 latex band Reps/Minutes 2 laps Neuro Re-Education Treatment Coordination Activities 2 Details Bird dogs Reps/Duration 2x5ea Comments Cues for neutral spine 1 Details Deadbugs Reps/Duration 2x10ea Comments 1st set: feet flat on table; UE with opp LE 2nd set: LEs in table top position; UE with opp LE PT-OP-T Assessment and Plan Start: 10/11/22 15:26 Freq: Status: Active Protocol: Document 10/28/22 12:52 AB (Rec: 10/28/22 14:07 AB [id number]) Physical Therapy Assessment Goals Four Impairment HEP Short Term Goal (STG) Pt to demonstrate compliance with HEP as demonstrated by recalling 75% of exercises for progression in therapy. STG Duration 3 Director Broadcast Goal (LTG) Pt to demonstrate independence with HEP as demonstrated by recalling 100% of exercises for dishcarge to IND HEP. LTG Duration 6 Three Impairment Modified Oswestry score Short Term Goal (STG) Pt's Modified Oswestry score to improve to 5/50 or better to show improving symptoms and QOL. STG Duration 4 Director Broadcast Goal (LTG) Pt's Modified Oswestry score to improve to 0/50 to demonstrate resolved symptoms and improved QOL. LTG Duration 6 Two Impairment Functional mobility- squatting Short Term Goal (STG) Pt to perform body weight squat without significant dynamic knee valgus noted in order to demonstrate improved mechanics, strength and neuromuscular control to perform functional activities. STG Duration 4 Director Broadcast Goal (LTG) Pt to perform 10# squat without significant dynamic knee valgus noted in order to demonstrate improved mechanics , strength and neuromuscular control to perform functional activities. One Impairment LE weakness Short Term Goal (STG) Pt's LE MMT scores to improve to 4+/5 or better to show improving strength to perform daily and functional activities and to decrease symptoms. STG Duration 4 Director Broadcast Goal (LTG) Pt's LE MMT scores to improve to 5/5 to show improved strength to perform daily and functional activities and to decrease symptoms. LTG Duration 6 Assessment Summary Assessment Squats were added to improve strength and stability with a functional movement. The pt required cues to avoid weight shift to right side due to left sided weakness. Due to improved form with hip flexion and hip ext/ABD, she was progressed by adding reps with good tolerance reported. With bird dogs, the pt shows left sided glute med weakness as she extends her right leg, demonstrated by her right hip dropping/rotating down. The pt was cued on engaging core/hip muscles which improved this deviation. The pt continues to benefit from skilled PT to improve her symptoms. Physical Therapy Plan Frequency and Duration Frequency of Treatment 2x/Week Duration of treatment (weeks) 6 Plan of Care Start Date 10/11/22 Plan of Care End Date 11/22/22 Therapeutic Interventions Therapeutic Interventions Home Exercise Program,Joint Mobilizations,Manual Therapy, Neuromuscular Re-education, Patient/Caregiver Education, Self-Care/Home Management,Soft Tissue Mobilization,Taping, Therapeutic Activities, Therapeutic Exercises Modalities Cold Pack/Ice Massage,Electric Stimulation,Hot Packs, Traction- Mechanical Next Visit Focus/Plan Next Note Type Treatment Note Next Visit Plan Add quadruped fire hydrants
--- NOTE | 2022-11-03 12:11 | PT.OTN ---
Current Diagnoses Sciatica, unspecified side (11/03/22) Physical Therapy Treatment Note PT-OP-A Visit Information Start: 10/11/22 15:26 Freq: Status: Active Protocol: Document 11/03/22 10:05 AB (Rec: 11/03/22 12:11 AB [id number]) Out-Patient Physical Therapy Visit Information Visit Information Visit Type Treatment Note Visit Start Time 10:00 Visit Stop Time 10:45 Total Visit Minutes 45 Visit Number 7 Number of FINANCIAL REPORTING ANALYST Visits 1 Evaluation Information Evaluation Date 10/11/22 PT-OP-B Current Condition Start: 10/11/22 15:26 Freq: Status: Active Protocol: Document 10/11/22 15:26 AB (Rec: 10/11/22 17:17 AB [id number]) Current Condition History of Current Condition Onset Date - 2021 Current Complaints BLE pain and N/T History of Current Condition Pt reports her symptoms began in 2001 insidiously with symptoms occurring every once in a while, and over the last few years it has worsened. However, after being inactive during COV her symptoms significantly worsened. Pt reports she currently experiences BLE pain and N/T in BLE (avg 5/10), her worst pain is 8/10 when sitting, at best her pain is 3/10. She reports aspirin helps her pain , but is hesitant to take prescription medication due to their side effects. The pt reports walking and standing help to improve her symptoms. Prior Treatments and Tests Acupunture- no improvement PT- no improvement Chiropractor- no improvement X rays, MRI- mild degenerative changes; herniated nucleus pulposus L3-4 right Treatment Goals Patient/Caregiver Goals To improve her symptoms. Prior Functional Status Baseline Function- ADL's Independent Baseline Function- Mobility Independent Baseline Function- Gait No abnormalities Baseline Function- Work/School Retired Baseline Function- Recreation/Hobbies Bicycling, walking Current Functional Impairments (Reported) Functional Limitations- Other No limitations, as she tries to push through her symptoms PT-OP-C Subjective Start: 10/11/22 15:26 Freq: Status: Active Protocol: Document 11/03/22 10:05 AB (Rec: 11/03/22 12:11 AB [id number]) OP-PT Subjective Patient Comments Patient Comments The pt reports no significant changes since her last visit. PT-OP-E Functional Tests Start: 10/11/22 15:26 Freq: Status: Active Protocol: Document 10/11/22 15:26 AB (Rec: 10/11/22 17:17 AB [id number]) Functional Tests Squat Test Score to 120 deg Comments Pt demos dynamic knee valgus PT-OP-G Mobility & Gait Start: 10/11/22 15:26 Freq: Status: Active Protocol: Document 10/11/22 15:26 AB (Rec: 10/11/22 17:17 AB [id number]) OP Gait Assessment Gait Deviations General Gait Pattern Antalgic Comments Gait Comments Lacks fluidity and appears antalgic; genu varum noted in standing PT-OP-K Range of Motion Start: 10/11/22 15:26 Freq: Status: Active Protocol: Document 10/11/22 15:26 AB (Rec: 10/11/22 17:17 AB [id number]) Lumbar Spine Range of Motion Lumbar Spine Active Degrees Testing Position Standing Extension 30 Rotation Left 50 Rotation Right 50 Comments flexion: fingers to floor SB bilaterally: to fibular head (mild pain bilaterally) Hip Goniometric Range of Motion Hip Right Active Hip ROM WFL Yes Left Active Hip ROM WFL Yes PT-OP-M Strength Start: 10/11/22 15:26 Freq: Status: Active Protocol: Document 10/11/22 15:26 AB (Rec: 10/11/22 17:17 AB [id number]) Hip Strength Hip Manual Muscle Testing Right Flexion (L2) 4 Good Extension (S1) 4- Good- Abduction 4- Good- Adduction 4 Good External Rotation 4- Good- Internal Rotation 4- Good- Comments Denies pain Left Flexion (L2) 4 Good Extension (S1) 4- Good- Abduction 4- Good- Adduction 4 Good External Rotation 4- Good- Internal Rotation 4- Good- Comments Denies pain Knee Strength Knee Manual Muscle Testing Right Flexion (S2) 4+ Good+ Extension (L3) 4+ Good+ Comments Denies pain Left Flexion (S2) 4+ Good+ Extension (L3) 4+ Good+ Comments Denies pain Ankle/Foot Strength Ankle and Foot Manual Muscle Testing Left Dorsiflexion (L4) 5 Normal Plantarflexion (S1) 4+ Good+ Eversion (S1) 5 Normal Comments Denies pain Right Dorsiflexion (L4) 5 Normal Plantarflexion (S1) 4+ Good+ Eversion (S1) 5 Normal Comments Denies pain PT-OP-Q Treatments Start: 10/11/22 15:26 Freq: Status: Active Protocol: Document 11/03/22 10:05 AB (Rec: 11/03/22 12:11 AB [id number]) Cardio Equipment Recumbent Bicycle Duration (Minutes) 5 Resistance 6 Seat Position 2 Therapeutic Exercises Supine Exercises femoral nerve glide Side bilateral Reps/Minutes 1x10 sciatic nerve glide Side bilateral Reps/Minutes 2x10 Standing Exercises Captain Boothe Standing Exercise Name Captain Valdez mini squat Side bilateral Equipment Used blue jamaican ball Reps/Minutes 1x10 sec hold, 1x10 EA 4 Standing Exercise Name Paloff press Side bilateral Resistance orange TB Reps/Minutes 2x15 Comments cued soft knee, neutral pelvis 3 Standing Exercise Name Hip ext at 45 deg of ABD Side bilateral Resistance level 2 teal TB Reps/Minutes 2x15 Comments neutral pelvis/TA awareness 2 Standing Exercise Name hip flexion Side bilateral Resistance level 2 teal TB Reps/Minutes 2x15 Comments no UE support Neuro Re-Education Treatment Coordination Activities Firehydrants Details Quadruped fire hydrants Reps/Duration 2x10 ea Comments cues for neutral spine, keeping hips level 2 Details Bird dogs Reps/Duration 2x5ea Comments Cues for neutral spine 1 Details Deadbugs Reps/Duration 2x10ea Comments 1st set: feet flat on table; UE with opp LE 2nd set: LEs in table top position; UE with opp LE PT-OP-T Assessment and Plan Start: 10/11/22 15:26 Freq: Status: Active Protocol: Document 11/03/22 10:05 AB (Rec: 11/03/22 12:11 AB [id number]) Physical Therapy Assessment Goals Four Impairment HEP Short Term Goal (STG) Pt to demonstrate compliance with HEP as demonstrated by recalling 75% of exercises for progression in therapy. STG Duration 3 Straddle Bug Operator Goal (LTG) Pt to demonstrate independence with HEP as demonstrated by recalling 100% of exercises for discharge to IND HEP. LTG Duration 6 Three Impairment Modified Oswestry score Short Term Goal (STG) Pt's Modified Oswestry score to improve to 5/50 or better to show improving symptoms and QOL. STG Duration 4 Jail Goal (LTG) Pt's Modified Oswestry score to improve to 0/50 to demonstrate resolved symptoms and improved QOL. LTG Duration 6 Two Impairment Functional mobility- squatting Short Term Goal (STG) Pt to perform body weight squat without significant dynamic knee valgus noted in order to demonstrate improved mechanics, strength and neuromuscular control to perform functional activities. STG Duration 4 Straddle Bug Operator Goal (LTG) Pt to perform 10# squat without significant dynamic knee valgus noted in order to demonstrate improved mechanics , strength and neuromuscular control to perform functional activities. One Impairment LE weakness Short Term Goal (STG) Pt's LE MMT scores to improve to 4+/5 or better to show improving strength to perform daily and functional activities and to decrease symptoms. STG Duration 4 Straddle Bug Operator Goal (LTG) Pt's LE MMT scores to improve to 5/5 to show improved strength to perform daily and functional activities and to decrease symptoms. LTG Duration 6 Assessment Summary Assessment The pt was progressed further today by adding resistance to exercises. Captain morgans were also added with the pt demonstrating good form with min squat holds, however shows increased instability when performing repeated mini squats. Quadruped fire hydrants were also added to improve hip strength and mobility, though the pt requires cues for neutral lumbar spine and to avoid rotating trunk. Neural glides were reviewed, as she had a question about these for her HEP. The pt continues to benefit from skilled PT to improve her symptoms and level of function. Physical Therapy Plan Frequency and Duration Frequency of Treatment 2x/Week Duration of treatment (weeks) 6 Plan of Care Start Date 10/11/22 Plan of Care End Date 11/22/22 Therapeutic Interventions Therapeutic Interventions Home Exercise Program,Joint Mobilizations,Manual Therapy, Neuromuscular Re-education, Patient/Caregiver Education, Self-Care/Home Management,Soft Tissue Mobilization,Taping, Therapeutic Activities, Therapeutic Exercises Modalities Cold Pack/Ice Massage,Electric Stimulation,Hot Packs, Traction- Mechanical Next Visit Focus/Plan Next Note Type Treatment Note Next Visit Plan Continue progressing as tolerated.
--- NOTE | 2022-11-08 13:59 | PT.OTN ---
Current Diagnoses Sciatica, unspecified side (11/08/22) Physical Therapy Treatment Note PT-OP-A Visit Information Start: 10/11/22 15:26 Freq: Status: Active Protocol: Document 11/08/22 11:05 AB (Rec: 11/08/22 13:59 AB [id number]) Out-Patient Physical Therapy Visit Information Visit Information Visit Type Treatment Note Visit Start Time 11:00 Visit Stop Time 11:45 Total Visit Minutes 45 Visit Number 8 Number of AUTO DESIGN CHECKER Visits 1 PT-OP-B Current Condition Start: 10/11/22 15:26 Freq: Status: Active Protocol: Document 10/11/22 15:26 AB (Rec: 10/11/22 17:17 AB [id number]) Current Condition History of Current Condition Onset Date - 2021 Current Complaints BLE pain and N/T History of Current Condition Pt reports her symptoms began in 2001 insidiously with symptoms occuring every once in a while, and over the last few years it has worsened. However, after being inactive during COV her symptoms significantly worsened. Pt reports she currently experiences BLE pain and N/T in BLE (avg 5/10), her worst pain is 8/10 when sitting, at best her pain is 3/10. She reports aspirin helps her pain , but is hesitant to take prescription medication due to their side effects. The pt reports walking and standing help to improve her symptoms. Prior Treatments and Tests Acupunture- no improvement PT- no improvement Chiropractor- no improvement X rays, MRI- mild degenerative changes; herniated nucleus pulposus L3-4 right Treatment Goals Patient/Caregiver Goals To improve her symptoms. Prior Functional Status Baseline Function- ADL's Independent Baseline Function- Mobility Independent Baseline Function- Gait No abnormalities Baseline Function- Work/School Retired Baseline Function- Recreation/Hobbies Bicycling, walking Current Functional Impairments (Reported) Functional Limitations- Other No limitations, as she tries to push through her symptoms PT-OP-C Subjective Start: 10/11/22 15:26 Freq: Status: Active Protocol: Document 11/08/22 11:05 AB (Rec: 11/08/22 13:59 AB [id number]) OP-PT Subjective Patient Comments Patient Comments The pt reports she feels a lot better when she goes on a walk and does her exercises, compared to when she is more sedentary. She also continues with her symptoms when she sitts for prolonged periods such as when driving. PT-OP-E Functional Tests Start: 10/11/22 15:26 Freq: Status: Active Protocol: Document 10/11/22 15:26 AB (Rec: 10/11/22 17:17 AB [id number]) Functional Tests Squat Test Score to 120 deg Comments Pt demos dynamic knee valgus PT-OP-G Mobility & Gait Start: 10/11/22 15:26 Freq: Status: Active Protocol: Document 10/11/22 15:26 AB (Rec: 10/11/22 17:17 AB [id number]) OP Gait Assessment Gait Deviations General Gait Pattern Antalgic Comments Gait Comments Lacks fluidity and appears antalgic; genu varum noted in standing PT-OP-K Range of Motion Start: 10/11/22 15:26 Freq: Status: Active Protocol: Document 10/11/22 15:26 AB (Rec: 10/11/22 17:17 AB [id number]) Lumbar Spine Range of Motion Lumbar Spine Active Degrees Testing Position Standing Extension 30 Rotation Left 50 Rotation Right 50 Comments flexion: fingers to floor SB bilaterally: to fibular head (mild pain bilaterally) Hip Goniometric Range of Motion Hip Right Active Hip ROM WFL Yes Left Active Hip ROM WFL Yes PT-OP-M Strength Start: 10/11/22 15:26 Freq: Status: Active Protocol: Document 10/11/22 15:26 AB (Rec: 10/11/22 17:17 AB [id number]) Hip Strength Hip Manual Muscle Testing Right Flexion (L2) 4 Good Extension (S1) 4- Good- Abduction 4- Good- Adduction 4 Good External Rotation 4- Good- Internal Rotation 4- Good- Comments Denies pain Left Flexion (L2) 4 Good Extension (S1) 4- Good- Abduction 4- Good- Adduction 4 Good External Rotation 4- Good- Internal Rotation 4- Good- Comments Denies pain Knee Strength Knee Manual Muscle Testing Right Flexion (S2) 4+ Good+ Extension (L3) 4+ Good+ Comments Denies pain Left Flexion (S2) 4+ Good+ Extension (L3) 4+ Good+ Comments Denies pain Ankle/Foot Strength Ankle and Foot Manual Muscle Testing Left Dorsiflexion (L4) 5 Normal Plantarflexion (S1) 4+ Good+ Eversion (S1) 5 Normal Comments Denies pain Right Dorsiflexion (L4) 5 Normal Plantarflexion (S1) 4+ Good+ Eversion (S1) 5 Normal Comments Denies pain PT-OP-Q Treatments Start: 10/11/22 15:26 Freq: Status: Active Protocol: Document 11/08/22 11:05 AB (Rec: 11/08/22 13:59 AB [id number]) Cardio Equipment Recumbent Bicycle Duration (Minutes) 5 Resistance 6 Seat Position 2 Therapeutic Exercises Standing Exercises Captain Boothe Standing Exercise Name Captain Valdez mini squat Side bilateral Equipment Used blue filipino ball Reps/Minutes 2x10 ea Squats Standing Exercise Name Squat to chair (tap) Reps/Minutes 2x8 Comments Used chair to determine depth for 2nd set Suitcase Carry Standing Exercise Name with small marching Side bilateral Resistance 7# Equipment Used DB Reps/Minutes 2 laps ea 4 Standing Exercise Name Paloff press + rotation Side bilateral Resistance orange TB Reps/Minutes 2x15 Comments cued soft knee, neutral pelvis 3 Standing Exercise Name Hip ext at 45 deg of ABD Side bilateral Resistance level 2 teal TB Reps/Minutes 2x15 Comments neutral pelvis/TA awareness 2 Standing Exercise Name hip flexion Side bilateral Resistance level 2 teal TB Reps/Minutes 2x15 Comments no UE support Neuro Re-Education Treatment Coordination Activities Firehydrants Details Quadruped firehydrants Reps/Duration 2x10 ea Comments cues for neutral spine, keeping hips level 2 Details Bird dogs Reps/Duration 2x5ea Comments Cues for neutral spine 1 Details Deadbugs Reps/Duration 2x10ea Comments 1st set: feet flat on table; UE with opp LE 2nd set: LEs in table top position; UE with opp LE PT-OP-T Assessment and Plan Start: 10/11/22 15:26 Freq: Status: Active Protocol: Document 11/08/22 11:05 AB (Rec: 11/08/22 13:59 AB [id number]) Physical Therapy Assessment Goals Four Impairment HEP Short Term Goal (STG) Pt to demonstrate compliance with HEP as demonstrated by recalling 75% of exercises for progression in therapy. STG Duration 3 Assisted Goal (LTG) Pt to demonstrate independence with HEP as demonstrated by recalling 100% of exercises for dishcarge to IND HEP. LTG Duration 6 Three Impairment Modified Oswestry score Short Term Goal (STG) Pt's Modified Oswestry score to improve to 5/50 or better to show improving symptoms and QOL. STG Duration 4 Car Repairer Pullman Goal (LTG) Pt's Modified Oswestry score to improve to 0/50 to demonstrate resolved symptoms and improved QOL. LTG Duration 6 Two Impairment Functional mobility- squatting Short Term Goal (STG) Pt to perform body weight squat without significant dynamic knee valgus noted in order to demonstrate improved mechanics, strength and neuromuscular control to perform functional activities. STG Duration 4 Assisted Goal (LTG) Pt to perform 10# squat without significant dynamic knee valgus noted in order to demonstrate improved mechanics , strength and neuromuscular control to perform functional activities. One Impairment LE weakness Short Term Goal (STG) Pt's LE MMT scores to improve to 4+/5 or better to show improving strength to perform daily and functional activities and to decrease symptoms. STG Duration 4 Car Repairer Pullman Goal (LTG) Pt's LE MMT scores to improve to 5/5 to show improved strength to perform daily and functional activities and to decrease symptoms. LTG Duration 6 Assessment Summary Assessment Continued with last session's progressions with good tolerance, as she was able to perform more exercises than last session, and demonstrating good form. The pt continues to demonstrate a weight shift to her right side when performing squats, as well as decreased hip extension on right when performing bird dogs. The pt continues to benefit from skilled PT to improve her deficits to decrease her symptoms. Physical Therapy Plan Frequency and Duration Frequency of Treatment 2x/Week Duration of treatment (weeks) 6 Plan of Care Start Date 10/11/22 Plan of Care End Date 11/22/22 Therapeutic Interventions Therapeutic Interventions Home Exercise Program,Joint Mobilizations,Manual Therapy, Neuromuscular Re-education, Patient/Caregiver Education, Self-Care/Home Management,Soft Tissue Mobilization,Taping, Therapeutic Activities, Therapeutic Exercises Modalities Cold Pack/Ice Massage,Electric Stimulation,Hot Packs, Traction- Mechanical Next Visit Focus/Plan Next Note Type Treatment Note Next Visit Plan Continue progressing as tolerated.
--- NOTE | 2022-11-11 12:45 | PT.OTN ---
Current Diagnoses Sciatica, unspecified side (11/11/22) Physical Therapy Treatment Note PT-OP-A Visit Information Start: 10/11/22 15:26 Freq: Status: Active Protocol: Document 11/11/22 12:01 SP (Rec: 11/11/22 12:55 SP [id number]) Out-Patient Physical Therapy Visit Information Visit Information Visit Type Treatment Note Visit Start Time 12:01 Visit Stop Time 12:45 Total Visit Minutes 44 Visit Number 9 Number of PLASMA TABLE OPERATOR Visits 1 Evaluation Information Evaluation Date 10/11/22 Precautions Precautions HTN (controlled), hyperlipidemia (controlled), osteopenia PT-OP-B Current Condition Start: 10/11/22 15:26 Freq: Status: Active Protocol: Document 10/11/22 15:26 AB (Rec: 10/11/22 17:17 AB [id number]) Current Condition History of Current Condition Onset Date - 2021 Current Complaints BLE pain and N/T History of Current Condition Pt reports her symptoms began in 2001 insidiously with symptoms occuring every once in a while, and over the last few years it has worsened. However, after being inactive during her symptoms significantly worsened. Pt reports she currently experiences BLE pain and N/T in BLE (avg 5/10), her worst pain is 8/10 when sitting, at best her pain is 3/10. She reports aspirin helps her pain , but is hesitant to take prescription medication due to their side effects. The pt reports walking and standing help to improve her symptoms. Prior Treatments and Tests Acupunture- no improvement PT- no improvement Chiropractor- no improvement X rays, MRI- mild degenerative changes; herniated nucleus pulposus L3-4 right Treatment Goals Patient/Caregiver Goals To improve her symptoms. Prior Functional Status Baseline Function- ADL's Independent Baseline Function- Mobility Independent Baseline Function- Gait No abnormalities Baseline Function- Work/School Retired Baseline Function- Recreation/Hobbies Bicycling, walking Current Functional Impairments (Reported) Functional Limitations- Other No limitations, as she tries to push through her symptoms PT-OP-C Subjective Start: 10/11/22 15:26 Freq: Status: Active Protocol: Document 11/11/22 12:01 SP (Rec: 11/11/22 12:55 SP [id number]) OP-PT Subjective Patient Comments Patient Comments Pt reports feels fine and accomplished, determined to improved. She not sure got better about how body feels seated in car still having back pain. PT-OP-E Functional Tests Start: 10/11/22 15:26 Freq: Status: Active Protocol: Document 10/11/22 15:26 AB (Rec: 10/11/22 17:17 AB [id number]) Functional Tests Squat Test Score to 120 deg Comments Pt demos dynamic knee valgus PT-OP-G Mobility & Gait Start: 10/11/22 15:26 Freq: Status: Active Protocol: Document 10/11/22 15:26 AB (Rec: 10/11/22 17:17 AB [id number]) OP Gait Assessment Gait Deviations General Gait Pattern Antalgic Comments Gait Comments Lacks fluidity and appears antalgic; genu varum noted in standing PT-OP-K Range of Motion Start: 10/11/22 15:26 Freq: Status: Active Protocol: Document 10/11/22 15:26 AB (Rec: 10/11/22 17:17 AB [id number]) Lumbar Spine Range of Motion Lumbar Spine Active Degrees Testing Position Standing Extension 30 Rotation Left 50 Rotation Right 50 Comments flexion: fingers to floor SB bilaterally: to fibular head (mild pain bilaterally) Hip Goniometric Range of Motion Hip Right Active Hip ROM WFL Yes Left Active Hip ROM WFL Yes PT-OP-M Strength Start: 10/11/22 15:26 Freq: Status: Active Protocol: Document 10/11/22 15:26 AB (Rec: 10/11/22 17:17 AB [id number]) Hip Strength Hip Manual Muscle Testing Right Flexion (L2) 4 Good Extension (S1) 4- Good- Abduction 4- Good- Adduction 4 Good External Rotation 4- Good- Internal Rotation 4- Good- Comments Denies pain Left Flexion (L2) 4 Good Extension (S1) 4- Good- Abduction 4- Good- Adduction 4 Good External Rotation 4- Good- Internal Rotation 4- Good- Comments Denies pain Knee Strength Knee Manual Muscle Testing Right Flexion (S2) 4+ Good+ Extension (L3) 4+ Good+ Comments Denies pain Left Flexion (S2) 4+ Good+ Extension (L3) 4+ Good+ Comments Denies pain Ankle/Foot Strength Ankle and Foot Manual Muscle Testing Left Dorsiflexion (L4) 5 Normal Plantarflexion (S1) 4+ Good+ Eversion (S1) 5 Normal Comments Denies pain Right Dorsiflexion (L4) 5 Normal Plantarflexion (S1) 4+ Good+ Eversion (S1) 5 Normal Comments Denies pain PT-OP-Q Treatments Start: 10/11/22 15:26 Freq: Status: Active Protocol: Document 11/11/22 12:01 SP (Rec: 11/11/22 12:55 SP [id number]) Cardio Equipment Recumbent Bicycle Duration (Minutes) 6 Resistance 6 Seat Position 2 Therapeutic Exercises Standing Exercises Captain Boothe Standing Exercise Name Captain Valdez mini squat Side bilateral Resistance (SLS mini squat) Equipment Used blue kyrgyz ball (lateral thigh on wall) Reps/Minutes 2x10 ea Comments small range, knee alignment with mid foot Suitcase Carry Standing Exercise Name with small marching Side bilateral Resistance 7# DB (1 side at time) Reps/Minutes 40 ft x2 laps ea side, between ex equipment Comments occasional over wt shift, improved increase DUNCAN and core fac 4 Standing Exercise Name Paloff press + rotation Side bilateral Resistance orange TB> GTB #3 Reps/Minutes 2x20 reps Comments cued soft knee, neutral pelvis , upper body more fwd head ovr shld ovr pelvi 3 Standing Exercise Name Hip ext at 45 deg of ABD Side bilateral Resistance level 2 teal TB (home), RTB in PT- at ankles Reps/Minutes 2x15 Comments neutral pelvis/TA awareness, not arch LS (head over shld over pelvis) 2 Standing Exercise Name hip flexion Side bilateral Resistance level 2 teal TB (home), RTB in PT Equipment Used no UE support Reps/Minutes 2x15 Comments cued centering body, scap/TA/ BOSover stance LE- good core/ hipflex/glut fac Therapeutic Activity Therapeutic Activity seated positioning in car Name initiated in PT Comments Education for use of car lumbar support adjustment increased comfort back alignment sitting in car. PT-OP-T Assessment and Plan Start: 10/11/22 15:26 Freq: Status: Active Protocol: Document 11/11/22 12:01 SP (Rec: 11/11/22 12:55 SP [id number]) Physical Therapy Assessment Goals Four Impairment HEP Short Term Goal (STG) Pt to demonstrate compliance with HEP as demonstrated by recalling 75% of exercises for progression in therapy. 11/11/22: has to reminded matching the pics with name of ex. She states sciatic nerve glide helps with reduction back pain. Uses HOs as needed. Provided HOs for resisted standing ex today. STG Duration 3 Mcfp Goal (LTG) Pt to demonstrate independence with HEP as demonstrated by recalling 100% of exercises for dishcarge to IND HEP. LTG Duration 6 Three Impairment Modified Oswestry score Short Term Goal (STG) Pt's Modified Oswestry score to improve to 5/50 or better to show improving symptoms and QOL. STG Duration 4 Diesel Service Apprentice Goal (LTG) Pt's Modified Oswestry score to improve to 0/50 to demonstrate resolved symptoms and improved QOL. LTG Duration 6 Two Impairment Functional mobility- squatting Short Term Goal (STG) Pt to perform body weight squat without significant dynamic knee valgus noted in order to demonstrate improved mechanics, strength and neuromuscular control to perform functional activities. STG Duration 4 Diesel Service Apprentice Goal (LTG) Pt to perform 10# squat without significant dynamic knee valgus noted in order to demonstrate improved mechanics , strength and neuromuscular control to perform functional activities. One Impairment LE weakness Short Term Goal (STG) Pt's LE MMT scores to improve to 4+/5 or better to show improving strength to perform daily and functional activities and to decrease symptoms. STG Duration 4 Mcfp Goal (LTG) Pt's LE MMT scores to improve to 5/5 to show improved strength to perform daily and functional activities and to decrease symptoms. LTG Duration 6 Assessment Summary Assessment Pt improved self postural alignment correction post cues during ther ex with good feedback core and hip muscular tiring and not back recruitment. Provided HOs for assist recall and form. Improved comfort post educaiton on proper use of car lumbar support adjustment. Physical Therapy Plan Frequency and Duration Frequency of Treatment 2x/Week Duration of treatment (weeks) 6 Plan of Care Start Date 10/11/22 Plan of Care End Date 11/22/22 Therapeutic Interventions Therapeutic Interventions Home Exercise Program,Joint Mobilizations,Manual Therapy, Neuromuscular Re-education, Patient/Caregiver Education, Self-Care/Home Management,Soft Tissue Mobilization,Taping, Therapeutic Activities, Therapeutic Exercises Modalities Cold Pack/Ice Massage,Electric Stimulation,Hot Packs, Traction- Mechanical Next Visit Focus/Plan Next Note Type Treatment Note Next Visit Plan Recheck resisted HEP progress gym ther ex to carryover wants to return to. Continue progressing as tolerated.
--- NOTE | 2022-11-15 13:41 | PT.OPPN ---
Current Diagnoses Sciatica, unspecified side (11/15/22) Physical Therapy Progress Note PT-OP-A Visit Information Start: 10/11/22 15:26 Freq: Status: Active Protocol: Document 11/15/22 11:04 AB (Rec: 11/15/22 13:39 AB [id number]) Out-Patient Physical Therapy Visit Information Visit Information Visit Type Progress Note Visit Start Time 11:01 Visit Stop Time 11:45 Total Visit Minutes 44 Visit Number 10 Number of LIFT MANAGER Visits 2 Evaluation Information Evaluation Date 10/11/22 Precautions Precautions HTN (controlled), hyperlipidemia (controlled), osteopenia PT-OP-B Current Condition Start: 10/11/22 15:26 Freq: Status: Active Protocol: Document 10/11/22 15:26 AB (Rec: 10/11/22 17:17 AB [id number]) Current Condition History of Current Condition Onset Date - 2021 Current Complaints BLE pain and N/T History of Current Condition Pt reports her symptoms began in 2001 insidiously with symptoms occuring every once in a while, and over the last few years it has worsened. However, after being inactive during her symptoms significantly worsened. Pt reports she currently experiences BLE pain and N/T in BLE (avg 5/10), her worst pain is 8/10 when sitting, at best her pain is 3/10. She reports aspirin helps her pain , but is hesitant to take prescription medication due to their side effects. The pt reports walking and standing help to improve her symptoms. Prior Treatments and Tests Acupunture- no improvement PT- no improvement Chiropractor- no improvement X rays, MRI- mild degenerative changes; herniated nucleus pulposus L3-4 right Treatment Goals Patient/Caregiver Goals To improve her symptoms. Prior Functional Status Baseline Function- ADL's Independent Baseline Function- Mobility Independent Baseline Function- Gait No abnormalities Baseline Function- Work/School Retired Baseline Function- Recreation/Hobbies Bicycling, walking Current Functional Impairments (Reported) Functional Limitations- Other No limitations, as she tries to push through her symptoms PT-OP-C Subjective Start: 10/11/22 15:26 Freq: Status: Active Protocol: Document 11/15/22 11:04 AB (Rec: 11/15/22 13:39 AB [id number]) OP-PT Subjective Patient Comments Patient Comments The pt reports feeling like her strength, balance and walking pattern has improved. However she continues with sciatic nerve pain/discomfort Patient Reported Progress Improving Patient Questionnaires Lower Extremity Functional Scale LEFS Score 52/80 LEFS Impairment 20 to 39% Impaired (Score 48- 62) Oswestry Low Back Index Oswestry Score 9/50 Oswestry Impairment 1 to 19% Impaired (Score 1-19) PT-OP-E Functional Tests Start: 10/11/22 15:26 Freq: Status: Active Protocol: Document 11/15/22 11:04 AB (Rec: 11/15/22 13:39 AB [id number]) Functional Tests Squat Test Score to 120 deg Comments no dynamic knee valgus noted PT-OP-G Mobility & Gait Start: 10/11/22 15:26 Freq: Status: Active Protocol: Document 11/15/22 13:40 AB (Rec: 11/15/22 13:41 AB [id number]) OP Gait Assessment Gait Deviations General Gait Pattern Within Normal Limits Comments Gait Comments Gait pattern is WNL, no significant deviations noted; genu varum noted in standing PT-OP-K Range of Motion Start: 10/11/22 15:26 Freq: Status: Active Protocol: Document 11/15/22 11:04 AB (Rec: 11/15/22 13:39 AB [id number]) Lumbar Spine Range of Motion Lumbar Spine Active Degrees Testing Position Standing Extension 45 Rotation Left 60 Rotation Right 60 Comments flexion: fingers to floor SB bilaterally: to fibular head Denies pain with all motions Hip Goniometric Range of Motion Hip Measured in Degrees Right Active Hip ROM WFL Yes Left Active Hip ROM WFL Yes PT-OP-M Strength Start: 10/11/22 15:26 Freq: Status: Active Protocol: Document 11/15/22 11:04 AB (Rec: 11/15/22 13:39 AB [id number]) Hip Strength Hip Manual Muscle Testing Right Flexion (L2) 4+ Good+ Extension (S1) 4 Good Abduction 4- Good- Adduction 4+ Good+ External Rotation 4- Good- Internal Rotation 4 Good Comments Denies pain Left Flexion (L2) 4+ Good+ Extension (S1) 4 Good Abduction 4 Good Adduction 4+ Good+ External Rotation 4- Good- Internal Rotation 4 Good Comments Denies pain Knee Strength Knee Manual Muscle Testing Right Flexion (S2) 4+ Good+ Extension (L3) 4+ Good+ Comments Denies pain Left Flexion (S2) 4+ Good+ Extension (L3) 4+ Good+ Comments Denies pain Ankle/Foot Strength Ankle and Foot Manual Muscle Testing Left Dorsiflexion (L4) 5 Normal Plantarflexion (S1) 5 Normal Eversion (S1) 5 Normal Comments Denies pain Right Dorsiflexion (L4) 5 Normal Plantarflexion (S1) 5 Normal Eversion (S1) 5 Normal Comments Denies pain PT-OP-T Assessment and Plan Start: 10/11/22 15:26 Freq: Status: Active Protocol: Document 11/15/22 11:04 AB (Rec: 11/15/22 13:39 AB [id number]) Physical Therapy Assessment Rehab Potential Rehabilitation Potential Good Evaluation Complexity Number of Personal Factors/Comorbidities 1-2 Number of Body Systems Impaired 1-2 Clinical Presentation at Evaluation Stable Impairments Impairments Functional Mobility,Pain, Strength Goals Four Impairment HEP Short Term Goal (STG) Pt to demonstrate compliance with HEP as demonstrated by recalling 75% of exercises for progression in therapy. 11/11/22: has to reminded matching the pics with name of ex. She states sciatic nerve glide helps with reduction back pain. Uses HOs as needed. Provided HOs for resisted standing ex today. STG Duration 3 Sanitarian Inspector Goal (LTG) Pt to demonstrate independence with HEP as demonstrated by recalling 100% of exercises for dishcarge to IND HEP. LTG Duration 6 Three Impairment Modified Oswestry score Short Term Goal (STG) Pt's Modified Oswestry score to improve to 5/50 or better to show improving symptoms and QOL. STG Duration 4 Sanitarian Inspector Goal (LTG) Pt's Modified Oswestry score to improve to 0/50 to demonstrate resolved symptoms and improved QOL. LTG Duration 6 Two Impairment Functional mobility- squatting Short Term Goal (STG) Pt to perform body weight squat without significant dynamic knee valgus noted in order to demonstrate improved mechanics, strength and neuromuscular control to perform functional activities. STG Duration 4 Nursing Home Goal (LTG) Pt to perform 10# squat without significant dynamic knee valgus noted in order to demonstrate improved mechanics , strength and neuromuscular control to perform functional activities. LTG Duration 6 One Impairment LE weakness Short Term Goal (STG) Pt's LE MMT scores to improve to 4+/5 or better to show improving strength to perform daily and functional activities and to decrease symptoms. STG Duration 4 Sanitarian Inspector Goal (LTG) Pt's LE MMT scores to improve to 5/5 to show improved strength to perform daily and functional activities and to decrease symptoms. LTG Duration 6 Progress Towards Goals Progress Towards Goals Progressing Toward Goals Assessment Summary Assessment Bryanna Hernandez has completed 10 visits of skilled PT to address her low back pain and bilateral sciatic nerve symptoms. While she reports continued nerve related pain with mild improvement, especially when sitting for prolonged periods, the pt demonstrates improvements in other areas. Her LE MMT score improved, demonstrating improved strength, and her lumbar spine ROM improved and is now painless, which shows improved mobility. However, she continues with some MMT deficits. Based on her improvements but remaining deficits, the pt would benefit from continued skilled PT as per her updated POC in order to improve her symptoms and level of function. Physical Therapy Plan Frequency and Duration Frequency of Treatment 2x/Week Duration of treatment (weeks) 6 Plan of Care Start Date 10/11/22 Plan of Care End Date 12/27/22 Therapeutic Interventions Therapeutic Interventions Home Exercise Program,Joint Mobilizations,Manual Therapy, Neuromuscular Re-education, Patient/Caregiver Education, Self-Care/Home Management,Soft Tissue Mobilization,Taping, Therapeutic Activities, Therapeutic Exercises Modalities Cold Pack/Ice Massage,Electric Stimulation,Hot Packs, Traction- Mechanical Next Visit Focus/Plan Next Note Type Treatment Note Next Visit Plan Review updated HEP. Continue progessing core and LE strength exercises.
--- NOTE | 2022-11-18 12:45 | PT.OTN ---
Current Diagnoses Sciatica, unspecified side (11/18/22) Physical Therapy Treatment Note PT-OP-A Visit Information Start: 10/11/22 15:26 Freq: Status: Active Protocol: Document 11/18/22 12:01 SP (Rec: 11/18/22 12:55 SP [id number]) Out-Patient Physical Therapy Visit Information Visit Information Visit Type Treatment Note Visit Start Time 12:01 Visit Stop Time 12:45 Total Visit Minutes 44 Visit Number 11 Number of BAILER TENDERS SUPERVISOR Visits 1 Evaluation Information Evaluation Date 10/11/22 Precautions Precautions HTN (controlled), hyperlipidemia (controlled), osteopenia PT-OP-B Current Condition Start: 10/11/22 15:26 Freq: Status: Active Protocol: Document 10/11/22 15:26 AB (Rec: 10/11/22 17:17 AB [id number]) Current Condition History of Current Condition Onset Date - 2021 Current Complaints BLE pain and N/T History of Current Condition Pt reports her symptoms began in 2001 insidiously with symptoms occuring every once in a while, and over the last few years it has worsened. However, after being inactive during her symptoms significantly worsened. Pt reports she currently experiences BLE pain and N/T in BLE (avg 5/10), her worst pain is 8/10 when sitting, at best her pain is 3/10. She reports aspirin helps her pain , but is hesitant to take prescription medication due to their side effects. The pt reports walking and standing help to improve her symptoms. Prior Treatments and Tests Acupunture- no improvement PT- no improvement Chiropractor- no improvement X rays, MRI- mild degenerative changes; herniated nucleus pulposus L3-4 right Treatment Goals Patient/Caregiver Goals To improve her symptoms. Prior Functional Status Baseline Function- ADL's Independent Baseline Function- Mobility Independent Baseline Function- Gait No abnormalities Baseline Function- Work/School Retired Baseline Function- Recreation/Hobbies Bicycling, walking Current Functional Impairments (Reported) Functional Limitations- Other No limitations, as she tries to push through her symptoms PT-OP-C Subjective Start: 10/11/22 15:26 Freq: Status: Active Protocol: Document 11/18/22 12:01 SP (Rec: 11/18/22 12:55 SP [id number]) OP-PT Subjective Patient Comments Patient Comments Pt stated still having the sciatic pain down both legs to feet with no significant improvement but she is please with improvement in balance gaining since started PT and more mindful of postural awareness. Patient Reported Progress Improving PT-OP-E Functional Tests Start: 10/11/22 15:26 Freq: Status: Active Protocol: Document 11/15/22 11:04 AB (Rec: 11/15/22 13:39 AB [id number]) Functional Tests Squat Test Score to 120 deg Comments no dynamic knee valgus noted PT-OP-G Mobility & Gait Start: 10/11/22 15:26 Freq: Status: Active Protocol: Document 11/15/22 13:40 AB (Rec: 11/15/22 13:41 AB [id number]) OP Gait Assessment Gait Deviations General Gait Pattern Within Normal Limits Comments Gait Comments Gait pattern is WNL, no significant deviations noted; genu varum noted in standing PT-OP-K Range of Motion Start: 10/11/22 15:26 Freq: Status: Active Protocol: Document 11/15/22 11:04 AB (Rec: 11/15/22 13:39 AB [id number]) Lumbar Spine Range of Motion Lumbar Spine Active Degrees Testing Position Standing Extension 45 Rotation Left 60 Rotation Right 60 Comments flexion: fingers to floor SB bilaterally: to fibular head Denies pain with all motions Hip Goniometric Range of Motion Hip Right Active Hip ROM WFL Yes Left Active Hip ROM WFL Yes PT-OP-M Strength Start: 10/11/22 15:26 Freq: Status: Active Protocol: Document 11/15/22 11:04 AB (Rec: 11/15/22 13:39 AB [id number]) Hip Strength Hip Manual Muscle Testing Right Flexion (L2) 4+ Good+ Extension (S1) 4 Good Abduction 4- Good- Adduction 4+ Good+ External Rotation 4- Good- Internal Rotation 4 Good Comments Denies pain Left Flexion (L2) 4+ Good+ Extension (S1) 4 Good Abduction 4 Good Adduction 4+ Good+ External Rotation 4- Good- Internal Rotation 4 Good Comments Denies pain Knee Strength Knee Manual Muscle Testing Right Flexion (S2) 4+ Good+ Extension (L3) 4+ Good+ Comments Denies pain Left Flexion (S2) 4+ Good+ Extension (L3) 4+ Good+ Comments Denies pain Ankle/Foot Strength Ankle and Foot Manual Muscle Testing Left Dorsiflexion (L4) 5 Normal Plantarflexion (S1) 5 Normal Eversion (S1) 5 Normal Comments Denies pain Right Dorsiflexion (L4) 5 Normal Plantarflexion (S1) 5 Normal Eversion (S1) 5 Normal Comments Denies pain PT-OP-Q Treatments Start: 10/11/22 15:26 Freq: Status: Active Protocol: Document 11/18/22 12:01 SP (Rec: 11/18/22 12:55 SP [id number]) Cardio Equipment Recumbent Bicycle Duration (Minutes) 5 Resistance 6>7 Seat Position 2 Other 54 RPM, Gym Equipment Sport Cord red Exercise Details f/b/lateral R & L, step up/ back down Reps/Duration 5 reps each direction Comments cued elongated posture, TA, level pelvis, foot clearance and controlled eccentric return. Had LOB but self correction initial side step end range return and step up at top 2nd LE advancement. Cued slow soft stepping. Improved stability SLS time with cues & reps Therapeutic Exercises Supine Exercises femoral nerve glide Side bilateral Equipment Used provided HO Reps/Minutes 10 Comments cued TA neutral spine toward table w/ knee flexion & PF sciatic nerve glide Supine Exercise Name reports helps decrease pain into legs to an extent Side bilateral Reps/Minutes 2x10 Comments cued chin tuck w/ fluid lift during slow cued ankle pump 3 Supine Exercise Name Bridge + TrA brace Side bilateral Equipment Used cued chin tuck neutral Reps/Minutes 2x10 ea Comments stag. stance change position 2nd set Standing Exercises Captain Boothe Standing Exercise Name Captain Valdez mini squat Side bilateral Resistance (SLS mini squat) Equipment Used trialed no Tball (not have 1 home) Reps/Minutes 2x10 ea Comments small range, hip hinge buttock back mini squat- good hip abd fac Neuro Re-Education Treatment Coordination Activities Firehydrants Details Quadruped firehydrants Reps/Duration 2x10 ea Comments cues for neutral C and L spine , keeping TA engaged and hips level 2 Details Bird dogs Reps/Duration x8 reps Comments cues for neutral C and L spine , keeping TA engaged and hips level PT-OP-T Assessment and Plan Start: 10/11/22 15:26 Freq: Status: Active Protocol: Document 11/18/22 12:01 SP (Rec: 11/18/22 12:55 SP [id number]) Physical Therapy Assessment Goals Four Impairment HEP Short Term Goal (STG) Pt to demonstrate compliance with HEP as demonstrated by recalling 75% of exercises for progression in therapy. 11/11/22: has to reminded matching the pics with name of ex. She states sciatic nerve glide helps with reduction back pain. Uses HOs as needed. Provided HOs for resisted standing ex today. STG Duration 3 Small Animal Caretaker Goal (LTG) Pt to demonstrate independence with HEP as demonstrated by recalling 100% of exercises for dishcarge to IND HEP. LTG Duration 6 Three Impairment Modified Oswestry score Short Term Goal (STG) Pt's Modified Oswestry score to improve to 5/50 or better to show improving symptoms and QOL. STG Duration 4 Small Animal Caretaker Goal (LTG) Pt's Modified Oswestry score to improve to 0/50 to demonstrate resolved symptoms and improved QOL. LTG Duration 6 Two Impairment Functional mobility- squatting Short Term Goal (STG) Pt to perform body weight squat without significant dynamic knee valgus noted in order to demonstrate improved mechanics, strength and neuromuscular control to perform functional activities. STG Duration 4 Small Animal Caretaker Goal (LTG) Pt to perform 10# squat without significant dynamic knee valgus noted in order to demonstrate improved mechanics , strength and neuromuscular control to perform functional activities. LTG Duration 6 One Impairment LE weakness Short Term Goal (STG) Pt's LE MMT scores to improve to 4+/5 or better to show improving strength to perform daily and functional activities and to decrease symptoms. STG Duration 4 Long-Term Goal (LTG) Pt's LE MMT scores to improve to 5/5 to show improved strength to perform daily and functional activities and to decrease symptoms. LTG Duration 6 Assessment Summary Assessment Pt improved cervical and lumbar alignment and TA engagement corrections with all ther ex. Improved hip abd facilitation during hydrants and carryover into resisted sport cord walking and step ups able to control mobility. Education given for elevated posture during gait and daily mobility to allow gravity forces through body evenly and less stressors into back and LEs with good understanding. Physical Therapy Plan Frequency and Duration Frequency of Treatment 2x/Week Duration of treatment (weeks) 6 Plan of Care Start Date 10/11/22 Plan of Care End Date 12/27/22 Therapeutic Interventions Therapeutic Interventions Home Exercise Program,Joint Mobilizations,Manual Therapy, Neuromuscular Re-education, Patient/Caregiver Education, Self-Care/Home Management,Soft Tissue Mobilization,Taping, Therapeutic Activities, Therapeutic Exercises Modalities Cold Pack/Ice Massage,Electric Stimulation,Hot Packs, Traction- Mechanical Next Visit Focus/Plan Next Note Type Treatment Note Next Visit Plan Review updated HEP. Continue sport cord, add stepping over kyle. POC: progessing core and LE strength exercises.
--- NOTE | 2022-11-22 12:33 | PT.OTN ---
Current Diagnoses Sciatica, unspecified side (11/22/22) Physical Therapy Treatment Note PT-OP-A Visit Information Start: 10/11/22 15:26 Freq: Status: Active Protocol: Document 11/22/22 11:08 AB (Rec: 11/22/22 12:32 AB [id number]) Out-Patient Physical Therapy Visit Information Visit Information Visit Type Treatment Note Visit Start Time 11:00 Visit Stop Time 11:45 Total Visit Minutes 45 Visit Number 11 PT-OP-B Current Condition Start: 10/11/22 15:26 Freq: Status: Active Protocol: Document 10/11/22 15:26 AB (Rec: 10/11/22 17:17 AB [id number]) Current Condition History of Current Condition Onset Date - 2021 Current Complaints BLE pain and N/T History of Current Condition Pt reports her symptoms began in 2001 insidiously with symptoms occuring every once in a while, and over the last few years it has worsened. However, after being inactive during COV her symptoms significantly worsened. Pt reports she currently experiences BLE pain and N/T in BLE (avg 5/10), her worst pain is 8/10 when sitting, at best her pain is 3/10. She reports aspirin helps her pain , but is hesitant to take prescription medication due to their side effects. The pt reports walking and standing help to improve her symptoms. Prior Treatments and Tests Acupunture- no improvement PT- no improvement Chiropractor- no improvement X rays, MRI- mild degenerative changes; herniated nucleus pulposus L3-4 right Treatment Goals Patient/Caregiver Goals To improve her symptoms. Prior Functional Status Baseline Function- ADL's Independent Baseline Function- Mobility Independent Baseline Function- Gait No abnormalities Baseline Function- Work/School Retired Baseline Function- Recreation/Hobbies Bicycling, walking Current Functional Impairments (Reported) Functional Limitations- Other No limitations, as she tries to push through her symptoms PT-OP-C Subjective Start: 10/11/22 15:26 Freq: Status: Active Protocol: Document 11/22/22 12:32 AB (Rec: 11/22/22 12:33 AB [id number]) OP-PT Subjective Patient Comments Patient Comments Pt reports her balance and walking are improving, but feels like her symptoms are the same otherwise. PT-OP-E Functional Tests Start: 10/11/22 15:26 Freq: Status: Active Protocol: Document 11/15/22 11:04 AB (Rec: 11/15/22 13:39 AB [id number]) Functional Tests Squat Test Score to 120 deg Comments no dynamic knee valgus noted PT-OP-G Mobility & Gait Start: 10/11/22 15:26 Freq: Status: Active Protocol: Document 11/15/22 13:40 AB (Rec: 11/15/22 13:41 AB [id number]) OP Gait Assessment Gait Deviations General Gait Pattern Within Normal Limits Comments Gait Comments Gait pattern is WNL, no significant deviations noted; genu varum noted in standing PT-OP-K Range of Motion Start: 10/11/22 15:26 Freq: Status: Active Protocol: Document 11/15/22 11:04 AB (Rec: 11/15/22 13:39 AB [id number]) Lumbar Spine Range of Motion Lumbar Spine Active Degrees Testing Position Standing Extension 45 Rotation Left 60 Rotation Right 60 Comments flexion: fingers to floor SB bilaterally: to fibular head Denies pain with all motions Hip Goniometric Range of Motion Hip Right Active Hip ROM WFL Yes Left Active Hip ROM WFL Yes PT-OP-M Strength Start: 10/11/22 15:26 Freq: Status: Active Protocol: Document 11/15/22 11:04 AB (Rec: 11/15/22 13:39 AB [id number]) Hip Strength Hip Manual Muscle Testing Right Flexion (L2) 4+ Good+ Extension (S1) 4 Good Abduction 4- Good- Adduction 4+ Good+ External Rotation 4- Good- Internal Rotation 4 Good Comments Denies pain Left Flexion (L2) 4+ Good+ Extension (S1) 4 Good Abduction 4 Good Adduction 4+ Good+ External Rotation 4- Good- Internal Rotation 4 Good Comments Denies pain Knee Strength Knee Manual Muscle Testing Right Flexion (S2) 4+ Good+ Extension (L3) 4+ Good+ Comments Denies pain Left Flexion (S2) 4+ Good+ Extension (L3) 4+ Good+ Comments Denies pain Ankle/Foot Strength Ankle and Foot Manual Muscle Testing Left Dorsiflexion (L4) 5 Normal Plantarflexion (S1) 5 Normal Eversion (S1) 5 Normal Comments Denies pain Right Dorsiflexion (L4) 5 Normal Plantarflexion (S1) 5 Normal Eversion (S1) 5 Normal Comments Denies pain PT-OP-Q Treatments Start: 10/11/22 15:26 Freq: Status: Active Protocol: Document 11/22/22 11:08 AB (Rec: 11/22/22 12:32 AB [id number]) Cardio Equipment Recumbent Bicycle Duration (Minutes) 5 Therapeutic Exercises Standing Exercises Jh curls Resistance 4# Equipment Used DB Reps/Minutes 2x5 Captain Boothe Standing Exercise Name Captain Valdez mini squat Side bilateral Resistance (SLS mini squat) Reps/Minutes 2x10 ea Suitcase Carry Side bilateral Resistance 10# DB (1 side at time) Reps/Minutes 40 ft x2 laps ea side, between ex equipment Other Exercises 1/2 kneel chop/lift Side bilateral Resistance 4# Equipment Used DB Reps/Minutes 2x8 ea Comments cues for neutral spine Neuro Re-Education Treatment Coordination Activities Firehydrants Details Quadruped firehydrants Reps/Duration 2x10 ea Comments cues for neutral C and L spine , keeping TA engaged and hips level 2 Details Bird dogs Reps/Duration x8 reps Comments cues for neutral C and L spine , keeping TA engaged and hips level 1 Details Deadbugs Equipment orange [place] ball Reps/Duration 2x10ea Comments 1st set: knees bent, feet flat , moving only 1 UE at a time ( other UE is pushing into ball) 2nd set: BUEs pushing into ball and PT-OP-T Assessment and Plan Start: 10/11/22 15:26 Freq: Status: Active Protocol: Document 11/22/22 11:08 AB (Rec: 11/22/22 12:32 AB [id number]) Physical Therapy Assessment Goals Four Impairment HEP Short Term Goal (STG) Pt to demonstrate compliance with HEP as demonstrated by recalling 75% of exercises for progression in therapy. 11/11/22: has to reminded matching the pics with name of ex. She states sciatic nerve glide helps with reduction back pain. Uses HOs as needed. Provided HOs for resisted standing ex today. STG Duration 3 Rent And Miscellaneous Remittance Clerk Goal (LTG) Pt to demonstrate independence with HEP as demonstrated by recalling 100% of exercises for dishcarge to IND HEP. LTG Duration 6 Three Impairment Modified Oswestry score Short Term Goal (STG) Pt's Modified Oswestry score to improve to 5/50 or better to show improving symptoms and QOL. STG Duration 4 Rent And Miscellaneous Remittance Clerk Goal (LTG) Pt's Modified Oswestry score to improve to 0/50 to demonstrate resolved symptoms and improved QOL. LTG Duration 6 Two Impairment Functional mobility- squatting Short Term Goal (STG) Pt to perform body weight squat without significant dynamic knee valgus noted in order to demonstrate improved mechanics, strength and neuromuscular control to perform functional activities. STG Duration 4 Rent And Miscellaneous Remittance Clerk Goal (LTG) Pt to perform 10# squat without significant dynamic knee valgus noted in order to demonstrate improved mechanics , strength and neuromuscular control to perform functional activities. LTG Duration 6 One Impairment LE weakness Short Term Goal (STG) Pt's LE MMT scores to improve to 4+/5 or better to show improving strength to perform daily and functional activities and to decrease symptoms. STG Duration 4 Rent And Miscellaneous Remittance Clerk Goal (LTG) Pt's LE MMT scores to improve to 5/5 to show improved strength to perform daily and functional activities and to decrease symptoms. LTG Duration 6 Assessment Summary Assessment The pt was progressed today by adding additional trunk strengthening exercises including Jh curls and 1/2 kneeling chops/lifts. The pt continues to require verbal and tactile cues for neutral spine when performing bugs, 1/2 kneeling chops/lifts and standing exercises. The pt continues to benefit from skilled PT to improve her symptoms and level of function . Physical Therapy Plan Frequency and Duration Frequency of Treatment 2x/Week Duration of treatment (weeks) 6 Plan of Care Start Date 10/11/22 Plan of Care End Date 12/27/22 Therapeutic Interventions Therapeutic Interventions Home Exercise Program,Joint Mobilizations,Manual Therapy, Neuromuscular Re-education, Patient/Caregiver Education, Self-Care/Home Management,Soft Tissue Mobilization,Taping, Therapeutic Activities, Therapeutic Exercises Modalities Cold Pack/Ice Massage,Electric Stimulation,Hot Packs, Traction- Mechanical Next Visit Focus/Plan Next Note Type Treatment Note Next Visit Plan Continue progessing core and LE strength exercises as indicated.
--- NOTE | 2022-11-25 12:45 | PT.OTN ---
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 However, after being inactive during her symptoms significantly worsened. Pt reports she currently experiences BLE pain and N/T in BLE (avg 5/10), her worst pain is 8/10 when sitting, at best her pain is 3/10. She reports aspirin helps her pain , but is hesitant to take prescription medication due to their side effects. The pt reports walking and standing help to improve her symptoms. Prior Treatments and Tests Acupunture- no improvement PT- no improvement Chiropractor- no improvement X rays, MRI- mild degenerative changes; herniated nucleus pulposus L3-4 right Treatment Goals Patient/Caregiver Goals To improve her symptoms. Prior Functional Status Baseline Function- ADL's Independent Baseline Function- Mobility Independent Baseline Function- Gait No abnormalities Baseline Function- Work/School Retired Baseline Function- Recreation/Hobbies Bicycling, walking Current Functional Impairments (Reported) Functional Limitations- Other No limitations, as she tries to push through her symptoms PT-OP-C Subjective Start: 10/11/22 15:26 Freq: Status: Active Protocol: Document 11/25/22 12:02 SP (Rec: 11/25/22 12:50 SP [id number]) OP-PT Subjective Patient Comments Patient Comments Pt reports not as great today , off day. SHe had some sciatic nerve mobility: LTR, standing piriformis stretch, bug. PT-OP-E Functional Tests Start: 10/11/22 15:26 Freq: Status: Active Protocol: Document 11/15/22 11:04 AB (Rec: 11/15/22 13:39 AB [id number]) Functional Tests Squat Test Score to 120 deg Comments no dynamic knee valgus noted PT-OP-G Mobility & Gait Start: 10/11/22 15:26 Freq: Status: Active Protocol: Document 11/15/22 13:40 AB (Rec: 11/15/22 13:41 AB [id number]) OP Gait Assessment Gait Deviations General Gait Pattern Within Normal Limits Comments Gait Comments Gait pattern is WNL, no significant deviations noted; genu varum noted in standing PT-OP-K Range of Motion Start: 10/11/22 15:26 Freq: Status: Active Protocol: Document 11/15/22 11:04 AB (Rec: 11/15/22 13:39 AB [id number]) Lumbar Spine Range of Motion Lumbar Spine Active Degrees Testing Position Standing Extension 45 Rotation Left 60 Rotation Right 60 Comments flexion: fingers to floor SB bilaterally: to fibular head Denies pain with all motions Hip Goniometric Range of Motion Hip Right Active Hip ROM WFL Yes Left Active Hip ROM WFL Yes PT-OP-M Strength Start: 10/11/22 15:26 Freq: Status: Active Protocol: Document 11/15/22 11:04 AB (Rec: 11/15/22 13:39 AB [id number]) Hip Strength Hip Manual Muscle Testing Right Flexion (L2) 4+ Good+ Extension (S1) 4 Good Abduction 4- Good- Adduction 4+ Good+ External Rotation 4- Good- Internal Rotation 4 Good Comments Denies pain Left Flexion (L2) 4+ Good+ Extension (S1) 4 Good Abduction 4 Good Adduction 4+ Good+ External Rotation 4- Good- Internal Rotation 4 Good Comments Denies pain Knee Strength Knee Manual Muscle Testing Right Flexion (S2) 4+ Good+ Extension (L3) 4+ Good+ Comments Denies pain Left Flexion (S2) 4+ Good+ Extension (L3) 4+ Good+ Comments Denies pain Ankle/Foot Strength Ankle and Foot Manual Muscle Testing Left Dorsiflexion (L4) 5 Normal Plantarflexion (S1) 5 Normal Eversion (S1) 5 Normal Comments Denies pain Right Dorsiflexion (L4) 5 Normal Plantarflexion (S1) 5 Normal Eversion (S1) 5 Normal Comments Denies pain PT-OP-Q Treatments Start: 10/11/22 15:26 Freq: Status: Active Protocol: Document 11/25/22 12:02 SP (Rec: 11/25/22 12:50 SP [id number]) Cardio Equipment Recumbent Bicycle Duration (Minutes) 6 Resistance 6>7 Seat Position 2 Other 54 RPM, Therapeutic Exercises Standing Exercises Jh curls Standing Exercise Name 1. segmental roll back to wall 2. RDL open space (core/hip hinge alignment) Resistance 4# Equipment Used DB Reps/Minutes 1. 5 reps [id number] Comments good response back flexibility /strength Captain Boothe Standing Exercise Name Captain Valdez mini squat Side bilateral Resistance (SLS mini squat) Reps/Minutes 2x10 ea Comments good feedback glut med tiring Suitcase Carry Standing Exercise Name assimulation (carrying dirt 1 sided garden) Side bilateral Resistance 10# DB (1 side at time) Reps/Minutes 140 ft lap around clinic wt eachUE Comments good level shld even wt R and L Other Exercises 1/2 kneel chop/lift Side bilateral Resistance 4# DB Equipment Used green foam pad under knee Reps/Minutes 2x8 ea Comments cues for neutral (CS/TS), hip hinge onto back ft to grasp item off floor Therapeutic Activity Therapeutic Activity body mechanics Name hip hinge squat lift items, posture into 1/2 kneel Reps/Minutes 5 min (basket/leg wts/DBs/ chair/table) Comments Education and carryover assimulate HEP application into ADLs: 1/2 kneel wt shift with good alignment items out dryer, squat lift basket off floor, 1/2 kneel/ kneel back posturing hip hinge get items from under dresser/ placement trunk rotation placement onto nearby/ dressor Neuro Re-Education Treatment Coordination Activities 1 Details Deadbugs Reps/Duration 2x10ea Comments 1st set: knees bent, feet flat , moving only 1 UE & 1 LE at a time (each LE light contact floor) is able to maintain TA 2nd set push 1 UE into ball stated felt easy last tx, trialed BLEs on small kick balls- able maintain TA but balls don't stay but gave good understanding opp UE or LE light contact floor but not full rest on floor gave more TA effort and still maintain PPT. Trialed PT-OP-T Assessment and Plan Start: 10/11/22 15:26 Freq: Status: Active Protocol: Document 11/25/22 12:02 SP (Rec: 11/25/22 12:50 SP [id number]) Physical Therapy Assessment Goals Four Impairment HEP Short Term Goal (STG) Pt to demonstrate compliance with HEP as demonstrated by recalling 75% of exercises for progression in therapy. 11/11/22: has to reminded matching the pics with name of ex. She states sciatic nerve glide helps with reduction back pain. Uses HOs as needed. Provided HOs for resisted standing ex today. STG Duration 3 [facility] Goal (LTG) Pt to demonstrate independence with HEP as demonstrated by recalling 100% of exercises for dishcarge to IND HEP. LTG Duration 6 Three Impairment Modified Oswestry score Short Term Goal (STG) Pt's Modified Oswestry score to improve to 5/50 or better to show improving symptoms and QOL. STG Duration 4 [facility]ci Goal (LTG) Pt's Modified Oswestry score to improve to 0/50 to demonstrate resolved symptoms and improved QOL. LTG Duration 6 Two Impairment Functional mobility- squatting Short Term Goal (STG) Pt to perform body weight squat without significant dynamic knee valgus noted in order to demonstrate improved mechanics, strength and neuromuscular control to perform functional activities. STG Duration 4 [facility]ci Goal (LTG) Pt to perform 10# squat without significant dynamic knee valgus noted in order to demonstrate improved mechanics , strength and neuromuscular control to perform functional activities. LTG Duration 6 One Impairment LE weakness Short Term Goal (STG) Pt's LE MMT scores to improve to 4+/5 or better to show improving strength to perform daily and functional activities and to decrease symptoms. STG Duration 4 Fci Goal (LTG) Pt's LE MMT scores to improve to 5/5 to show improved strength to perform daily and functional activities and to decrease symptoms. LTG Duration 6 Assessment Summary Assessment Pt improved postural alignment corrections with HEP carryover assimulate into ADLs : items out of dryer, items from under dresser, carrying bag dirt. She reports is finding more aware of her posture in moving now and seeing some decrease in back stresses. She also states when having sciatic shocks performing ROM and stretching has been helpful with relief. She states her pain hasn't gone away but more mindful implimenting instruction. Physical Therapy Plan Frequency and Duration Frequency of Treatment 2x/Week Duration of treatment (weeks) 6 Plan of Care Start Date 10/11/22 Plan of Care End Date 12/27/22 Therapeutic Interventions Therapeutic Interventions Home Exercise Program,Joint Mobilizations,Manual Therapy, Neuromuscular Re-education, Patient/Caregiver Education, Self-Care/Home Management,Soft Tissue Mobilization,Taping, Therapeutic Activities, Therapeutic Exercises Modalities Cold Pack/Ice Massage,Electric Stimulation,Hot Packs, Traction- Mechanical Next Visit Focus/Plan Next Note Type Treatment Note Next Visit Plan REvisit bug, hydrants, bird dog and how carries over to ADLs. POC: Continue progessing core and LE strength exercises as indicated.
--- NOTE | 2022-12-01 11:09 | PT.OTN ---
Current Diagnoses Sciatica, unspecified side (12/01/22) Physical Therapy Treatment Note PT-OP-A Visit Information Start: 10/11/22 15:26 Freq: Status: Active Protocol: Document 12/01/22 10:05 AB (Rec: 12/01/22 11:06 AB [id number]) Out-Patient Physical Therapy Visit Information Visit Information Visit Type Treatment Note Visit Start Time 10:03 Visit Stop Time 10:45 Total Visit Minutes 42 Visit Number 13 PT-OP-B Current Condition Start: 10/11/22 15:26 Freq: Status: Active Protocol: Document 10/11/22 15:26 AB (Rec: 10/11/22 17:17 AB [id number]) Current Condition History of Current Condition Onset Date - 2021 Current Complaints BLE pain and N/T History of Current Condition Pt reports her symptoms began in 2001 insidiously with symptoms occuring every once in a while, and over the last few years it has worsened. However, after being inactive during COV her symptoms significantly worsened. Pt reports she currently experiences BLE pain and N/T in BLE (avg 5/10), her worst pain is 8/10 when sitting, at best her pain is 3/10. She reports aspirin helps her pain , but is hesitant to take prescription medication due to their side effects. The pt reports walking and standing help to improve her symptoms. Prior Treatments and Tests Acupunture- no improvement PT- no improvement Chiropractor- no improvement X rays, MRI- mild degenerative changes; herniated nucleus pulposus L3-4 right Treatment Goals Patient/Caregiver Goals To improve her symptoms. Prior Functional Status Baseline Function- ADL's Independent Baseline Function- Mobility Independent Baseline Function- Gait No abnormalities Baseline Function- Work/School Retired Baseline Function- Recreation/Hobbies Bicycling, walking Current Functional Impairments (Reported) Functional Limitations- Other No limitations, as she tries to push through her symptoms PT-OP-C Subjective Start: 10/11/22 15:26 Freq: Status: Active Protocol: Document 12/01/22 10:05 AB (Rec: 12/01/22 11:06 AB [id number]) OP-PT Subjective Patient Comments Patient Comments THe pt reports she is having a good day today. She reports she continues with sciatic nerve symptoms but there are days when they are better and other days in which they are worse. PT-OP-E Functional Tests Start: 10/11/22 15:26 Freq: Status: Active Protocol: Document 11/15/22 11:04 AB (Rec: 11/15/22 13:39 AB [id number]) Functional Tests Squat Test Score to 120 deg Comments no dynamic knee valgus noted PT-OP-G Mobility & Gait Start: 10/11/22 15:26 Freq: Status: Active Protocol: Document 11/15/22 13:40 AB (Rec: 11/15/22 13:41 AB [id number]) OP Gait Assessment Gait Deviations General Gait Pattern Within Normal Limits Comments Gait Comments Gait pattern is WNL, no significant deviations noted; genu varum noted in standing PT-OP-K Range of Motion Start: 10/11/22 15:26 Freq: Status: Active Protocol: Document 11/15/22 11:04 AB (Rec: 11/15/22 13:39 AB [id number]) Lumbar Spine Range of Motion Lumbar Spine Active Degrees Testing Position Standing Extension 45 Rotation Left 60 Rotation Right 60 Comments flexion: fingers to floor SB bilaterally: to fibular head Denies pain with all motions Hip Goniometric Range of Motion Hip Right Active Hip ROM WFL Yes Left Active Hip ROM WFL Yes PT-OP-M Strength Start: 10/11/22 15:26 Freq: Status: Active Protocol: Document 11/15/22 11:04 AB (Rec: 11/15/22 13:39 AB [id number]) Hip Strength Hip Manual Muscle Testing Right Flexion (L2) 4+ Good+ Extension (S1) 4 Good Abduction 4- Good- Adduction 4+ Good+ External Rotation 4- Good- Internal Rotation 4 Good Comments Denies pain Left Flexion (L2) 4+ Good+ Extension (S1) 4 Good Abduction 4 Good Adduction 4+ Good+ External Rotation 4- Good- Internal Rotation 4 Good Comments Denies pain Knee Strength Knee Manual Muscle Testing Right Flexion (S2) 4+ Good+ Extension (L3) 4+ Good+ Comments Denies pain Left Flexion (S2) 4+ Good+ Extension (L3) 4+ Good+ Comments Denies pain Ankle/Foot Strength Ankle and Foot Manual Muscle Testing Left Dorsiflexion (L4) 5 Normal Plantarflexion (S1) 5 Normal Eversion (S1) 5 Normal Comments Denies pain Right Dorsiflexion (L4) 5 Normal Plantarflexion (S1) 5 Normal Eversion (S1) 5 Normal Comments Denies pain PT-OP-Q Treatments Start: 10/11/22 15:26 Freq: Status: Active Protocol: Document 12/01/22 10:05 AB (Rec: 12/01/22 11:06 AB [id number]) Cardio Equipment Recumbent Bicycle Duration (Minutes) 6 Resistance 6 Seat Position 2 Other 54 RPM, Therapeutic Exercises Standing Exercises Jh curls Resistance 5# Equipment Used DB Reps/Minutes 2x5 Captain [place]he Standing Exercise Name ain José Miguel mini squat Side bilateral Resistance (SLS mini squat) Reps/Minutes 2x10 ea Comments good feedback glut med tiring Other Exercises lumbar ext Other Exercise Name lumbar extension over russian ball Resistance AROM Equipment Used green russian ball Reps/Minutes 2x8 Comments cues to maintain neutral spine then extend into lumbar ext 1/2 kneel chop/lift Side bilateral Resistance 5# DB Reps/Minutes 2x8 ea Neuro Re-Education Treatment Coordination Activities Firehydrants Details Quadruped firehydrants Reps/Duration 2x10 ea Comments cues for neutral C and L spine , keeping TA engaged and hips level 2 Details Bird dogs Equipment peach TB Reps/Duration 2x10 ea Comments cues for neutral C and L spine , keeping TA engaged and hips level 1 Details Deadbugs Reps/Duration 2x10ea PT-OP-T Assessment and Plan Start: 10/11/22 15:26 Freq: Status: Active Protocol: Document 12/01/22 10:05 AB (Rec: 12/01/22 11:06 AB [id number]) Physical Therapy Assessment Goals Four Impairment HEP Short Term Goal (STG) Pt to demonstrate compliance with HEP as demonstrated by recalling 75% of exercises for progression in therapy. 11/11/22: has to reminded matching the pics with name of ex. She states sciatic nerve glide helps with reduction back pain. Uses HOs as needed. Provided HOs for resisted standing ex today. STG Duration 3 Correction Goal (LTG) Pt to demonstrate independence with HEP as demonstrated by recalling 100% of exercises for dishcarge to IND HEP. LTG Duration 6 Three Impairment Modified Oswestry score Short Term Goal (STG) Pt's Modified Oswestry score to improve to 5/50 or better to show improving symptoms and QOL. STG Duration 4 Utility Operator Yarn Goal (LTG) Pt's Modified Oswestry score to improve to 0/50 to demonstrate resolved symptoms and improved QOL. LTG Duration 6 Two Impairment Functional mobility- squatting Short Term Goal (STG) Pt to perform body weight squat without significant dynamic knee valgus noted in order to demonstrate improved mechanics, strength and neuromuscular control to perform functional activities. STG Duration 4 Correction Goal (LTG) Pt to perform 10# squat without significant dynamic knee valgus noted in order to demonstrate improved mechanics , strength and neuromuscular control to perform functional activities. LTG Duration 6 One Impairment LE weakness Short Term Goal (STG) Pt's LE MMT scores to improve to 4+/5 or better to show improving strength to perform daily and functional activities and to decrease symptoms. STG Duration 4 Utility Operator Yarn Goal (LTG) Pt's LE MMT scores to improve to 5/5 to show improved strength to perform daily and functional activities and to decrease symptoms. LTG Duration 6 Assessment Summary Assessment Due to continued improvement in symptoms, the pt was progressed today by adding resistance to birddogs, as well as slight increase in resistance to Jh curls ( which was added to HEP) and 1/ 2 kneeling chops/lifts. Lumbar extension AROM in kneeling position was also added to improve strength of lumbar paraspinals. The pt reported good tolerance of these progressions. She also demonstrates improved awareness to posture when performing exercises, as she requires minimal cueing to maintain a neutral spine. The pt continues to benefit from skilled PT to improve her symptoms. Physical Therapy Plan Frequency and Duration Frequency of Treatment 2x/Week Duration of treatment (weeks) 6 Plan of Care Start Date 10/11/22 Plan of Care End Date 12/27/22 Therapeutic Interventions Therapeutic Interventions Home Exercise Program,Joint Mobilizations,Manual Therapy, Neuromuscular Re-education, Patient/Caregiver Education, Self-Care/Home Management,Soft Tissue Mobilization,Taping, Therapeutic Activities, Therapeutic Exercises Modalities Cold Pack/Ice Massage,Electric Stimulation,Hot Packs, Traction- Mechanical Next Visit Focus/Plan Next Note Type Treatment Note Next Visit Plan Continue progressing as tolerated. Assess tolerance to HEP progressions.
--- NOTE | 2022-12-06 10:52 | PT.OTN ---
Current Diagnoses Sciatica, unspecified side (12/06/22) Physical Therapy Treatment Note PT-OP-A Visit Information Start: 10/11/22 15:26 Freq: Status: Active Protocol: Document 12/06/22 10:06 AB (Rec: 12/06/22 10:50 AB [id number]) Out-Patient Physical Therapy Visit Information Visit Information Visit Type Treatment Note Visit Start Time 10:00 Visit Stop Time 10:45 Total Visit Minutes 45 Visit Number 14 Evaluation Information Evaluation Date 10/11/22 PT-OP-B Current Condition Start: 10/11/22 15:26 Freq: Status: Active Protocol: Document 10/11/22 15:26 AB (Rec: 10/11/22 17:17 AB [id number]) Current Condition History of Current Condition Onset Date - 2021 Current Complaints BLE pain and N/T History of Current Condition Pt reports her symptoms began in 2001 insidiously with symptoms occuring every once in a while, and over the last few years it has worsened. However, after being inactive during COV her symptoms significantly worsened. Pt reports she currently experiences BLE pain and N/T in BLE (avg 5/10), her worst pain is 8/10 when sitting, at best her pain is 3/10. She reports aspirin helps her pain , but is hesitant to take prescription medication due to their side effects. The pt reports walking and standing help to improve her symptoms. Prior Treatments and Tests Acupunture- no improvement PT- no improvement Chiropractor- no improvement X rays, MRI- mild degenerative changes; herniated nucleus pulposus L3-4 right Treatment Goals Patient/Caregiver Goals To improve her symptoms. Prior Functional Status Baseline Function- ADL's Independent Baseline Function- Mobility Independent Baseline Function- Gait No abnormalities Baseline Function- Work/School Retired Baseline Function- Recreation/Hobbies Bicycling, walking Current Functional Impairments (Reported) Functional Limitations- Other No limitations, as she tries to push through her symptoms PT-OP-C Subjective Start: 10/11/22 15:26 Freq: Status: Active Protocol: Document 12/06/22 10:06 AB (Rec: 12/06/22 10:50 AB [id number]) OP-PT Subjective Patient Comments Patient Comments The pt reports she is feeling more stiffness and symptoms due to not having a good night sleep and some additional stress lately. PT-OP-E Functional Tests Start: 10/11/22 15:26 Freq: Status: Active Protocol: Document 11/15/22 11:04 AB (Rec: 11/15/22 13:39 AB [id number]) Functional Tests Squat Test Score to 120 deg Comments no dynamic knee valgus noted PT-OP-G Mobility & Gait Start: 10/11/22 15:26 Freq: Status: Active Protocol: Document 11/15/22 13:40 AB (Rec: 11/15/22 13:41 AB [id number]) OP Gait Assessment Gait Deviations General Gait Pattern Within Normal Limits Comments Gait Comments Gait pattern is WNL, no significant deviations noted; genu varum noted in standing PT-OP-K Range of Motion Start: 10/11/22 15:26 Freq: Status: Active Protocol: Document 11/15/22 11:04 AB (Rec: 11/15/22 13:39 AB [id number]) Lumbar Spine Range of Motion Lumbar Spine Active Degrees Testing Position Standing Extension 45 Rotation Left 60 Rotation Right 60 Comments flexion: fingers to floor SB bilaterally: to fibular head Denies pain with all motions Hip Goniometric Range of Motion Hip Right Active Hip ROM WFL Yes Left Active Hip ROM WFL Yes PT-OP-M Strength Start: 10/11/22 15:26 Freq: Status: Active Protocol: Document 11/15/22 11:04 AB (Rec: 11/15/22 13:39 AB [id number]) Hip Strength Hip Manual Muscle Testing Right Flexion (L2) 4+ Good+ Extension (S1) 4 Good Abduction 4- Good- Adduction 4+ Good+ External Rotation 4- Good- Internal Rotation 4 Good Comments Denies pain Left Flexion (L2) 4+ Good+ Extension (S1) 4 Good Abduction 4 Good Adduction 4+ Good+ External Rotation 4- Good- Internal Rotation 4 Good Comments Denies pain Knee Strength Knee Manual Muscle Testing Right Flexion (S2) 4+ Good+ Extension (L3) 4+ Good+ Comments Denies pain Left Flexion (S2) 4+ Good+ Extension (L3) 4+ Good+ Comments Denies pain Ankle/Foot Strength Ankle and Foot Manual Muscle Testing Left Dorsiflexion (L4) 5 Normal Plantarflexion (S1) 5 Normal Eversion (S1) 5 Normal Comments Denies pain Right Dorsiflexion (L4) 5 Normal Plantarflexion (S1) 5 Normal Eversion (S1) 5 Normal Comments Denies pain PT-OP-Q Treatments Start: 10/11/22 15:26 Freq: Status: Active Protocol: Document 12/06/22 10:06 AB (Rec: 12/06/22 10:50 AB [id number]) Cardio Equipment Recumbent Bicycle Duration (Minutes) 5 Resistance 6 Seat Position 2 Therapeutic Exercises Supine Exercises sciatic nerve glide Supine Exercise Name reports helps decrease pain into legs to an extent Side bilateral Reps/Minutes 2x10 Comments cued chin tuck w/ fluid lift during slow cued ankle pump 3 Supine Exercise Name Bridge + TrA brace Equipment Used orange guatem[place] ball Reps/Minutes 2x10 Comments legs elevated on guatem[place] ball 2 Supine Exercise Name Anterior-posterior pelvic titls Reps/Minutes 2 mins 1 Supine Exercise Name LTRs Reps/Minutes 2 min Standing Exercises Jh curls Resistance 5# Equipment Used DB Reps/Minutes 2x5 Other Exercises Cat/cow Other Exercise Name Quadruped cat/cow Reps/Minutes 2 min lumbar ext Other Exercise Name Supermans Equipment Used floor mat Reps/Minutes 2x15 Comments cues to extend BLEs and BUEs 1/2 kneel chop/lift Side bilateral Resistance 5# DB Reps/Minutes 2x8 ea Neuro Re-Education Treatment Coordination Activities Firehydrants Details Quadruped firehydrants Reps/Duration 2x10 ea Comments cues for neutral C and L spine , keeping TA engaged and hips level 2 Details Bird dogs Reps/Duration 2x10 ea Comments cues for neutral C and L spine , keeping TA engaged and hips level 1 Details Deadbugs Reps/Duration 2x10ea PT-OP-T Assessment and Plan Start: 10/11/22 15:26 Freq: Status: Active Protocol: Document 12/06/22 10:06 AB (Rec: 12/06/22 10:50 AB [id number]) Physical Therapy Assessment Goals Four Impairment HEP Short Term Goal (STG) Pt to demonstrate compliance with HEP as demonstrated by recalling 75% of exercises for progression in therapy. 11/11/22: has to reminded matching the pics with name of ex. She states sciatic nerve glide helps with reduction back pain. Uses HOs as needed. Provided HOs for resisted standing ex today. STG Duration 3 Front Line Supervisor Goal (LTG) Pt to demonstrate independence with HEP as demonstrated by recalling 100% of exercises for dishcarge to IND HEP. LTG Duration 6 Three Impairment Modified Oswestry score Short Term Goal (STG) Pt's Modified Oswestry score to improve to 5/50 or better to show improving symptoms and QOL. STG Duration 4 Longterm Goal (LTG) Pt's Modified Oswestry score to improve to 0/50 to demonstrate resolved symptoms and improved QOL. LTG Duration 6 Two Impairment Functional mobility- squatting Short Term Goal (STG) Pt to perform body weight squat without significant dynamic knee valgus noted in order to demonstrate improved mechanics, strength and neuromuscular control to perform functional activities. STG Duration 4 Front Line Supervisor Goal (LTG) Pt to perform 10# squat without significant dynamic knee valgus noted in order to demonstrate improved mechanics , strength and neuromuscular control to perform functional activities. LTG Duration 6 One Impairment LE weakness Short Term Goal (STG) Pt's LE MMT scores to improve to 4+/5 or better to show improving strength to perform daily and functional activities and to decrease symptoms. STG Duration 4 Longterm Goal (LTG) Pt's LE MMT scores to improve to 5/5 to show improved strength to perform daily and functional activities and to decrease symptoms. LTG Duration 6 Assessment Summary Assessment Due to reports of increased symptoms this visit, additional mobility exercises were performed this visit to help reduce her symptoms. The pt tolerated bridge progression well, and demonstrates improved symmetry when performing bird dogs and fire hydrants. Lumbar extension was modified to be performed as Supermans to engage full posterior chain. She reported significant improvement in her symptoms at the end of the session. The pt would benefit from continued progression next visit as tolerated. Physical Therapy Plan Frequency and Duration Frequency of Treatment 2x/Week Duration of treatment (weeks) 6 Plan of Care Start Date 10/11/22 Plan of Care End Date 12/27/22 Therapeutic Interventions Therapeutic Interventions Home Exercise Program,Joint Mobilizations,Manual Therapy, Neuromuscular Re-education, Patient/Caregiver Education, Self-Care/Home Management,Soft Tissue Mobilization,Taping, Therapeutic Activities, Therapeutic Exercises Modalities Cold Pack/Ice Massage,Electric Stimulation,Hot Packs, Traction- Mechanical Next Visit Focus/Plan Next Note Type Treatment Note Next Visit Plan Continue progressing as tolerated. Assess tolerance to HEP progressions.
--- NOTE | 2022-12-09 16:32 | PT.OTN ---
Current Diagnoses Sciatica, unspecified side (12/09/22) Physical Therapy Treatment Note PT-OP-A Visit Information Start: 10/11/22 15:26 Freq: Status: Active Protocol: Document 12/09/22 14:47 SW (Rec: 12/09/22 16:31 SW [id number]) Out-Patient Physical Therapy Visit Information Visit Information Visit Type Treatment Note Visit Start Time 15:30 Visit Stop Time 16:15 Total Visit Minutes 45 Visit Number 15 Number of PURCHASING OFFICER Visits 1 PT-OP-B Current Condition Start: 10/11/22 15:26 Freq: Status: Active Protocol: Document 10/11/22 15:26 AB (Rec: 10/11/22 17:17 AB [id number]) Current Condition History of Current Condition Onset Date - 2021 Current Complaints BLE pain and N/T History of Current Condition Pt reports her symptoms began in 2001 insidiously with symptoms occuring every once in a while, and over the last few years it has worsened. However, after being inactive during COV her symptoms significantly worsened. Pt reports she currently experiences BLE pain and N/T in BLE (avg 5/10), her worst pain is 8/10 when sitting, at best her pain is 3/10. She reports aspirin helps her pain , but is hesitant to take prescription medication due to their side effects. The pt reports walking and standing help to improve her symptoms. Prior Treatments and Tests Acupunture- no improvement PT- no improvement Chiropractor- no improvement X rays, MRI- mild degenerative changes; herniated nucleus pulposus L3-4 right Treatment Goals Patient/Caregiver Goals To improve her symptoms. Prior Functional Status Baseline Function- ADL's Independent Baseline Function- Mobility Independent Baseline Function- Gait No abnormalities Baseline Function- Work/School Retired Baseline Function- Recreation/Hobbies Bicycling, walking Current Functional Impairments (Reported) Functional Limitations- Other No limitations, as she tries to push through her symptoms PT-OP-C Subjective Start: 10/11/22 15:26 Freq: Status: Active Protocol: Document 12/09/22 14:47 SW (Rec: 12/09/22 16:31 SW [id number]) OP-PT Subjective Patient Comments Patient Comments The pt reports symptoms come and go, pn level currently at a 6/10 today. Went out and walked today for an hour, pain improved post. PT-OP-E Functional Tests Start: 10/11/22 15:26 Freq: Status: Active Protocol: Document 11/15/22 11:04 AB (Rec: 11/15/22 13:39 AB [id number]) Functional Tests Squat Test Score to 120 deg Comments no dynamic knee valgus noted PT-OP-G Mobility & Gait Start: 10/11/22 15:26 Freq: Status: Active Protocol: Document 11/15/22 13:40 AB (Rec: 11/15/22 13:41 AB [id number]) OP Gait Assessment Gait Deviations General Gait Pattern Within Normal Limits Comments Gait Comments Gait pattern is WNL, no significant deviations noted; genu varum noted in standing PT-OP-K Range of Motion Start: 10/11/22 15:26 Freq: Status: Active Protocol: Document 11/15/22 11:04 AB (Rec: 11/15/22 13:39 AB [id number]) Lumbar Spine Range of Motion Lumbar Spine Active Degrees Testing Position Standing Extension 45 Rotation Left 60 Rotation Right 60 Comments flexion: fingers to floor SB bilaterally: to fibular head Denies pain with all motions Hip Goniometric Range of Motion Hip Right Active Hip ROM WFL Yes Left Active Hip ROM WFL Yes PT-OP-M Strength Start: 10/11/22 15:26 Freq: Status: Active Protocol: Document 11/15/22 11:04 AB (Rec: 11/15/22 13:39 AB [id number]) Hip Strength Hip Manual Muscle Testing Right Flexion (L2) 4+ Good+ Extension (S1) 4 Good Abduction 4- Good- Adduction 4+ Good+ External Rotation 4- Good- Internal Rotation 4 Good Comments Denies pain Left Flexion (L2) 4+ Good+ Extension (S1) 4 Good Abduction 4 Good Adduction 4+ Good+ External Rotation 4- Good- Internal Rotation 4 Good Comments Denies pain Knee Strength Knee Manual Muscle Testing Right Flexion (S2) 4+ Good+ Extension (L3) 4+ Good+ Comments Denies pain Left Flexion (S2) 4+ Good+ Extension (L3) 4+ Good+ Comments Denies pain Ankle/Foot Strength Ankle and Foot Manual Muscle Testing Left Dorsiflexion (L4) 5 Normal Plantarflexion (S1) 5 Normal Eversion (S1) 5 Normal Comments Denies pain Right Dorsiflexion (L4) 5 Normal Plantarflexion (S1) 5 Normal Eversion (S1) 5 Normal Comments Denies pain PT-OP-Q Treatments Start: 10/11/22 15:26 Freq: Status: Active Protocol: Document 12/09/22 14:47 (Rec: 12/09/22 16:31 [id number]) Cardio Equipment Recumbent Bicycle Duration (Minutes) 5 Resistance 7 Seat Position 2 Therapeutic Exercises Supine Exercises sciatic nerve glide Supine Exercise Name reports helps decrease pain into legs to an extent Side bilateral Reps/Minutes 2x10 Comments cued chin tuck w/ fluid lift during slow cued ankle pump 3 Supine Exercise Name Bridge + TrA brace Equipment Used orange romanian ball Reps/Minutes 2x10 Comments legs elevated on romanian ball 2 Supine Exercise Name Anterior-posterior pelvic titls, on romanian ball Reps/Minutes 2 mins 1 Supine Exercise Name LTR, LE together/apart Reps/Minutes 2 min Prone Exercises Prone Press up Prone Exercise Name Prone Press up Side bilateral Reps/Minutes x10 Standing Exercises Jh curls Resistance 5# Equipment Used DB Reps/Minutes 2x5 Other Exercises Bird Dog Other Exercise Name Alt UE/LE> Alt LE only Comments cues for core stability Cat/cow Other Exercise Name Quadruped cat/cow Reps/Minutes 2 min Comments cues for hip stacked over knees for mobility vs core strength lumbar ext Other Exercise Name Supermans, alternating Equipment Used floor mat Reps/Minutes 2x15 Comments cues to extend BLEs and BUEs 1/2 kneel chop/lift Side bilateral Resistance 5# DB Reps/Minutes 2x8 ea PT-OP-T Assessment and Plan Start: 10/11/22 15:26 Freq: Status: Active Protocol: Document 12/09/22 14:47 (Rec: 12/09/22 16:31 [id number]) Physical Therapy Assessment Goals Four Impairment HEP Short Term Goal (STG) Pt to demonstrate compliance with HEP as demonstrated by recalling 75% of exercises for progression in therapy. 11/11/22: has to reminded matching the pics with name of ex. She states sciatic nerve glide helps with reduction back pain. Uses HOs as needed. Provided HOs for resisted standing ex today. STG Duration 3 Chcf Goal (LTG) Pt to demonstrate independence with HEP as demonstrated by recalling 100% of exercises for dishcarge to IND HEP. LTG Duration 6 Three Impairment Modified Oswestry score Short Term Goal (STG) Pt's Modified Oswestry score to improve to 5/50 or better to show improving symptoms and QOL. STG Duration 4 Chcf Goal (LTG) Pt's Modified Oswestry score to improve to 0/50 to demonstrate resolved symptoms and improved QOL. LTG Duration 6 Two Impairment Functional mobility- squatting Short Term Goal (STG) Pt to perform body weight squat without significant dynamic knee valgus noted in order to demonstrate improved mechanics, strength and neuromuscular control to perform functional activities. STG Duration 4 Enlisted Aircrew/Aerial Observer/Gunner Goal (LTG) Pt to perform 10# squat without significant dynamic knee valgus noted in order to demonstrate improved mechanics , strength and neuromuscular control to perform functional activities. LTG Duration 6 One Impairment LE weakness Short Term Goal (STG) Pt's LE MMT scores to improve to 4+/5 or better to show improving strength to perform daily and functional activities and to decrease symptoms. STG Duration 4 Chcf Goal (LTG) Pt's LE MMT scores to improve to 5/5 to show improved strength to perform daily and functional activities and to decrease symptoms. LTG Duration 6 Assessment Summary Assessment Continued mobility exercises for symptom relief this session. Added prone press ups , verbal cues for cervical alignment, tolerated well, w/ out increase in symptoms. Physical Therapy Plan Frequency and Duration Frequency of Treatment 2x/Week Duration of treatment (weeks) 6 Plan of Care Start Date 10/11/22 Plan of Care End Date 12/27/22 Therapeutic Interventions Therapeutic Interventions Home Exercise Program,Joint Mobilizations,Manual Therapy, Neuromuscular Re-education, Patient/Caregiver Education, Self-Care/Home Management,Soft Tissue Mobilization,Taping, Therapeutic Activities, Therapeutic Exercises Modalities Cold Pack/Ice Massage,Electric Stimulation,Hot Packs, Traction- Mechanical Next Visit Focus/Plan Next Note Type Treatment Note Next Visit Plan Continue progressing as tolerated. Assess tolerance to HEP progressions.
--- NOTE | 2022-12-14 15:15 | PT.OTN ---
Current Diagnoses Sciatica, unspecified side (12/14/22) Physical Therapy Treatment Note PT-OP-A Visit Information Start: 10/11/22 15:26 Freq: Status: Active Protocol: Document 12/14/22 14:29 SP (Rec: 12/14/22 15:39 SP [id number]) Out-Patient Physical Therapy Visit Information Visit Information Visit Type Treatment Note Visit Start Time 14:30 Visit Stop Time 15:15 Total Visit Minutes 45 Visit Number 16 Number of RUBBER INSULATOR Visits 2 Evaluation Information Evaluation Date 10/11/22 Precautions Precautions HTN (controlled), hyperlipidemia (controlled), osteopenia PT-OP-B Current Condition Start: 10/11/22 15:26 Freq: Status: Active Protocol: Document 10/11/22 15:26 AB (Rec: 10/11/22 17:17 AB [id number]) Current Condition History of Current Condition Onset Date - 2021 Current Complaints BLE pain and N/T History of Current Condition Pt reports her symptoms began in 2001 insidiously with symptoms occuring every once in a while, and over the last few years it has worsened. However, after being inactive during her symptoms significantly worsened. Pt reports she currently experiences BLE pain and N/T in BLE (avg 5/10), her worst pain is 8/10 when sitting, at best her pain is 3/10. She reports aspirin helps her pain , but is hesitant to take prescription medication due to their side effects. The pt reports walking and standing help to improve her symptoms. Prior Treatments and Tests Acupunture- no improvement PT- no improvement Chiropractor- no improvement X rays, MRI- mild degenerative changes; herniated nucleus pulposus L3-4 right Treatment Goals Patient/Caregiver Goals To improve her symptoms. Prior Functional Status Baseline Function- ADL's Independent Baseline Function- Mobility Independent Baseline Function- Gait No abnormalities Baseline Function- Work/School Retired Baseline Function- Recreation/Hobbies Bicycling, walking Current Functional Impairments (Reported) Functional Limitations- Other No limitations, as she tries to push through her symptoms PT-OP-C Subjective Start: 10/11/22 15:26 Freq: Status: Active Protocol: Document 12/14/22 14:29 SP (Rec: 12/14/22 15:39 SP [id number]) OP-PT Subjective Patient Comments Patient Comments Pt reports doesn't feel her back pain hasn't improved since PT but feels stronger with exercises learning. She reports had done many various therapies: acupuncture, shots, etc. Overall 9/10 back pain today. PT-OP-E Functional Tests Start: 10/11/22 15:26 Freq: Status: Active Protocol: Document 11/15/22 11:04 AB (Rec: 11/15/22 13:39 AB [id number]) Functional Tests Squat Test Score to 120 deg Comments no dynamic knee valgus noted PT-OP-G Mobility & Gait Start: 10/11/22 15:26 Freq: Status: Active Protocol: Document 11/15/22 13:40 AB (Rec: 11/15/22 13:41 AB [id number]) OP Gait Assessment Gait Deviations General Gait Pattern Within Normal Limits Comments Gait Comments Gait pattern is WNL, no significant deviations noted; genu varum noted in standing PT-OP-K Range of Motion Start: 10/11/22 15:26 Freq: Status: Active Protocol: Document 11/15/22 11:04 AB (Rec: 11/15/22 13:39 AB [id number]) Lumbar Spine Range of Motion Lumbar Spine Active Degrees Testing Position Standing Extension 45 Rotation Left 60 Rotation Right 60 Comments flexion: fingers to floor SB bilaterally: to fibular head Denies pain with all motions Hip Goniometric Range of Motion Hip Right Active Hip ROM WFL Yes Left Active Hip ROM WFL Yes PT-OP-M Strength Start: 10/11/22 15:26 Freq: Status: Active Protocol: Document 11/15/22 11:04 AB (Rec: 11/15/22 13:39 AB [id number]) Hip Strength Hip Manual Muscle Testing Right Flexion (L2) 4+ Good+ Extension (S1) 4 Good Abduction 4- Good- Adduction 4+ Good+ External Rotation 4- Good- Internal Rotation 4 Good Comments Denies pain Left Flexion (L2) 4+ Good+ Extension (S1) 4 Good Abduction 4 Good Adduction 4+ Good+ External Rotation 4- Good- Internal Rotation 4 Good Comments Denies pain Knee Strength Knee Manual Muscle Testing Right Flexion (S2) 4+ Good+ Extension (L3) 4+ Good+ Comments Denies pain Left Flexion (S2) 4+ Good+ Extension (L3) 4+ Good+ Comments Denies pain Ankle/Foot Strength Ankle and Foot Manual Muscle Testing Left Dorsiflexion (L4) 5 Normal Plantarflexion (S1) 5 Normal Eversion (S1) 5 Normal Comments Denies pain Right Dorsiflexion (L4) 5 Normal Plantarflexion (S1) 5 Normal Eversion (S1) 5 Normal Comments Denies pain PT-OP-Q Treatments Start: 10/11/22 15:26 Freq: Status: Active Protocol: Document 12/14/22 14:29 SP (Rec: 12/14/22 15:39 SP [id number]) Cardio Equipment Recumbent Elliptical (Biodex) Duration (Minutes) 6 Resistance 4 Seat Position see 6 Other BUE& BLEs, 45-50 RPMs, total steps Gym Equipment Shuttle Recovery unilateral squat Resistance 37# (new band) Reps/Time x15 bilateral squat Resistance 50# (2 new bands) Reps/Time x20 Therapeutic Exercises Prone Exercises Prone Press up Prone Exercise Name Prone Press up on hands Side bilateral Reps/Minutes x10, 1 SH Comments reports- most of time not bad . Standing Exercises squat Standing Exercise Name BW squat, DB squat Resistance body wt, 5# DB (close to chest ) Equipment Used front mirror Reps/Minutes 5 reps each Comments hip abd weakness but self correct knees // w/ ft- leg mus tire crab walk Standing Exercise Name review HEP: f/b/lateral Side bilateral Resistance YTB Reps/Minutes 20 ft x2 laps each direction Comments cued maintain lateral tension f/b- good TA/NS Jh curls Resistance 5# DB Reps/Minutes x10 Comments good form and stretch response - not alot pain performing Other Exercises Bird Dog Other Exercise Name Alt UE/LE> Alt LE only Reps/Minutes 4 min spent assessing motion decrease pain Comments cues for TA and neutral LS- better if higher lift than lower Neuro Re-Education Treatment Coordination Activities 2 Details Bird dogs Speed use dowel along spine- tactile cues PPT/ no LB arch or look up with lift Reps/Duration 2x5 ea Comments Mod cues for neutral C and L spine, keeping TA engaged and hips level- reports 1 of hardest ex and gets back light electrical feeling. Noted little effort weakness in each UEs during opp UE ext. 1 Details Deadbugs Reps/Duration 2x10ea Comments modified 90/90 LEs on floor> into hip flexion with UE extension OH- less back tension Self-Care/Home Management Treatment Education Other Education Pt asked about small pain in R shld at times. Discussed anatomy and postural w/ scapular alignment and see if improves R shld discomfort. PT-OP-T Assessment and Plan Start: 10/11/22 15:26 Freq: Status: Active Protocol: Document 12/14/22 14:29 SP (Rec: 12/14/22 15:39 SP [id number]) Physical Therapy Assessment Goals Four Impairment HEP Short Term Goal (STG) Pt to demonstrate compliance with HEP as demonstrated by recalling 75% of exercises for progression in therapy. 11/11/22: has to reminded matching the pics with name of ex. She states sciatic nerve glide helps with reduction back pain. Uses HOs as needed. Provided HOs for resisted standing ex today. STG Duration 3 Qa Internship Goal (LTG) Pt to demonstrate independence with HEP as demonstrated by recalling 100% of exercises for dishcarge to IND HEP. LTG Duration 6 Three Impairment Modified Oswestry score Short Term Goal (STG) Pt's Modified Oswestry score to improve to 5/50 or better to show improving symptoms and QOL. STG Duration 4 Qa Internship Goal (LTG) Pt's Modified Oswestry score to improve to 0/50 to demonstrate resolved symptoms and improved QOL. LTG Duration 6 Two Impairment Functional mobility- squatting Short Term Goal (STG) Pt to perform body weight squat without significant dynamic knee valgus noted in order to demonstrate improved mechanics, strength and neuromuscular control to perform functional activities. 12/14/22: GOAL MET: able to completed body wt squat with improved knee abd with feet automatic corrections (little hip abd weakness), painfree. STG Duration 4 GOAL MET Alf Goal (LTG) Pt to perform 10# squat without significant dynamic knee valgus noted in order to demonstrate improved mechanics , strength and neuromuscular control to perform functional activities. 12/14/22: progressing: able to complete air squat in mirror with 5# DB, good form and BLE muscle tiring not pain. LTG Duration 6 progressing 12/14/22 One Impairment LE weakness Short Term Goal (STG) Pt's LE MMT scores to improve to 4+/5 or better to show improving strength to perform daily and functional activities and to decrease symptoms. STG Duration 4 Alf Goal (LTG) Pt's LE MMT scores to improve to 5/5 to show improved strength to perform daily and functional activities and to decrease symptoms. LTG Duration 6 Assessment Summary Assessment MET STG #3. Pt improved mobility progression and increase resistance: resisted crab walk , body wt and DB squat and weighted Jh curl very little to no pain reports more muscle tiring. Pt reports no significant change in little electrical pain in LB with activity. Tries to be aware of postural alignment, bird dog and bug most challenging, instructed modified bug with improved feedback less back recruitment and less pain . No back pain with prone press up on hands. Physical Therapy Plan Frequency and Duration Frequency of Treatment 2x/Week Duration of treatment (weeks) 6 Plan of Care Start Date 10/11/22 Plan of Care End Date 12/27/22 Therapeutic Interventions Therapeutic Interventions Home Exercise Program,Joint Mobilizations,Manual Therapy, Neuromuscular Re-education, Patient/Caregiver Education, Self-Care/Home Management,Soft Tissue Mobilization,Taping, Therapeutic Activities, Therapeutic Exercises Modalities Cold Pack/Ice Massage,Electric Stimulation,Hot Packs, Traction- Mechanical Next Visit Focus/Plan Next Note Type Treatment Note Next Visit Plan Continue progressing as tolerated. Assess tolerance to HEP progressions weighted squat last tx.
--- NOTE | 2022-12-16 12:45 | PT.OTN ---
Current Diagnoses Sciatica, unspecified side (12/16/22) Physical Therapy Treatment Note PT-OP-A Visit Information Start: 10/11/22 15:26 Freq: Status: Active Protocol: Document 12/16/22 12:02 SP (Rec: 12/16/22 12:47 SP [id number]) Out-Patient Physical Therapy Visit Information Visit Information Visit Type Treatment Note Visit Start Time 12:02 Visit Stop Time 12:45 Total Visit Minutes 43 Visit Number 17 Number of HOSPICE HOME HEALTH AIDE Visits 3 Evaluation Information Evaluation Date 10/11/22 Precautions Precautions HTN (controlled), hyperlipidemia (controlled), osteopenia PT-OP-B Current Condition Start: 10/11/22 15:26 Freq: Status: Active Protocol: Document 10/11/22 15:26 AB (Rec: 10/11/22 17:17 AB [id number]) Current Condition History of Current Condition Onset Date - 2021 Current Complaints BLE pain and N/T History of Current Condition Pt reports her symptoms began in 2001 insidiously with symptoms occuring every once in a while, and over the last few years it has worsened. However, after being inactive during her symptoms significantly worsened. Pt reports she currently experiences BLE pain and N/T in BLE (avg 5/10), her worst pain is 8/10 when sitting, at best her pain is 3/10. She reports aspirin helps her pain , but is hesitant to take prescription medication due to their side effects. The pt reports walking and standing help to improve her symptoms. Prior Treatments and Tests Acupunture- no improvement PT- no improvement Chiropractor- no improvement X rays, MRI- mild degenerative changes; herniated nucleus pulposus L3-4 right Treatment Goals Patient/Caregiver Goals To improve her symptoms. Prior Functional Status Baseline Function- ADL's Independent Baseline Function- Mobility Independent Baseline Function- Gait No abnormalities Baseline Function- Work/School Retired Baseline Function- Recreation/Hobbies Bicycling, walking Current Functional Impairments (Reported) Functional Limitations- Other No limitations, as she tries to push through her symptoms PT-OP-C Subjective Start: 10/11/22 15:26 Freq: Status: Active Protocol: Document 12/16/22 12:02 SP (Rec: 12/16/22 12:47 SP [id number]) OP-PT Subjective Patient Comments Patient Comments Pt reports has been a good experience in PT: cues for head posture and postural positioning for better for back support. She reports bug and bird dog are most challenge and cause her pain, let's DC these. PT-OP-E Functional Tests Start: 10/11/22 15:26 Freq: Status: Active Protocol: Document 11/15/22 11:04 AB (Rec: 11/15/22 13:39 AB [id number]) Functional Tests Squat Test Score to 120 deg Comments no dynamic knee valgus noted PT-OP-G Mobility & Gait Start: 10/11/22 15:26 Freq: Status: Active Protocol: Document 11/15/22 13:40 AB (Rec: 11/15/22 13:41 AB [id number]) OP Gait Assessment Gait Deviations General Gait Pattern Within Normal Limits Comments Gait Comments Gait pattern is WNL, no significant deviations noted; genu varum noted in standing PT-OP-K Range of Motion Start: 10/11/22 15:26 Freq: Status: Active Protocol: Document 11/15/22 11:04 AB (Rec: 11/15/22 13:39 AB [id number]) Lumbar Spine Range of Motion Lumbar Spine Active Degrees Testing Position Standing Extension 45 Rotation Left 60 Rotation Right 60 Comments flexion: fingers to floor SB bilaterally: to fibular head Denies pain with all motions Hip Goniometric Range of Motion Hip Right Active Hip ROM WFL Yes Left Active Hip ROM WFL Yes PT-OP-M Strength Start: 10/11/22 15:26 Freq: Status: Active Protocol: Document 11/15/22 11:04 AB (Rec: 11/15/22 13:39 AB [id number]) Hip Strength Hip Manual Muscle Testing Right Flexion (L2) 4+ Good+ Extension (S1) 4 Good Abduction 4- Good- Adduction 4+ Good+ External Rotation 4- Good- Internal Rotation 4 Good Comments Denies pain Left Flexion (L2) 4+ Good+ Extension (S1) 4 Good Abduction 4 Good Adduction 4+ Good+ External Rotation 4- Good- Internal Rotation 4 Good Comments Denies pain Knee Strength Knee Manual Muscle Testing Right Flexion (S2) 4+ Good+ Extension (L3) 4+ Good+ Comments Denies pain Left Flexion (S2) 4+ Good+ Extension (L3) 4+ Good+ Comments Denies pain Ankle/Foot Strength Ankle and Foot Manual Muscle Testing Left Dorsiflexion (L4) 5 Normal Plantarflexion (S1) 5 Normal Eversion (S1) 5 Normal Comments Denies pain Right Dorsiflexion (L4) 5 Normal Plantarflexion (S1) 5 Normal Eversion (S1) 5 Normal Comments Denies pain PT-OP-Q Treatments Start: 10/11/22 15:26 Freq: Status: Active Protocol: Document 12/16/22 12:02 SP (Rec: 12/16/22 12:47 SP [id number]) Cardio Equipment Elliptical Duration (Minutes) 6 Resistance 4 Other cued head up looking out in front not at feet- uses at gym . Therapeutic Exercises Supine Exercises 3 Supine Exercise Name Bridge + TrA brace Equipment Used orange bruneian ball Reps/Minutes 2x10 Comments legs elevated on bruneian ball 1 Supine Exercise Name LTR, LE together/apart Resistance 55cm tball Reps/Minutes 20 reps Comments cued keep neck neutral, UEs out to side, no arch LE Sitting Exercises pelvic tilts Sitting Exercise Name pelvis tilts, march, LAQ, Resistance AROM Equipment Used seated on 65cm tball Reps/Minutes x10 Comments cues as needed for COG over DUNCAN, core/LE support for alignement corrections Standing Exercises squat Standing Exercise Name squat row- will perform at gym Resistance 10# cable Reps/Minutes x10 Comments good form after coordinate: hip hinge fwd squat UE front/ stand row Jh curls Resistance 7# DB Reps/Minutes x10 Comments good form and stretch response - not alot pain performing Captain Boothe Standing Exercise Name Captain Valdez mini squat Side bilateral Resistance (SLS mini squat)- side trunk wall slide Reps/Minutes 2x10 ea Comments good feedback glut med/ prox quad tiring- cued knee behind toe PT-OP-T Assessment and Plan Start: 10/11/22 15:26 Freq: Status: Active Protocol: Document 12/16/22 12:02 SP (Rec: 12/16/22 12:47 SP [id number]) Physical Therapy Assessment Goals Four Impairment HEP Short Term Goal (STG) Pt to demonstrate compliance with HEP as demonstrated by recalling 75% of exercises for progression in therapy. 11/11/22: has to reminded matching the pics with name of ex. She states sciatic nerve glide helps with reduction back pain. Uses HOs as needed. Provided HOs for resisted standing ex today. STG Duration 3 Intermediate Goal (LTG) Pt to demonstrate independence with HEP as demonstrated by recalling 100% of exercises for dishcarge to IND HEP. LTG Duration 6 Three Impairment Modified Oswestry score Short Term Goal (STG) Pt's Modified Oswestry score to improve to 5/50 or better to show improving symptoms and QOL. STG Duration 4 Intermediate Goal (LTG) Pt's Modified Oswestry score to improve to 0/50 to demonstrate resolved symptoms and improved QOL. LTG Duration 6 Two Impairment Functional mobility- squatting Short Term Goal (STG) Pt to perform body weight squat without significant dynamic knee valgus noted in order to demonstrate improved mechanics, strength and neuromuscular control to perform functional activities. 12/14/22: GOAL MET: able to completed body wt squat with improved knee abd with feet automatic corrections (little hip abd weakness), painfree. STG Duration 4 GOAL MET Wardrobe Mistress Goal (LTG) Pt to perform 10# squat without significant dynamic knee valgus noted in order to demonstrate improved mechanics , strength and neuromuscular control to perform functional activities. 12/14/22: progressing: able to complete air squat in mirror with 5# DB, good form and BLE muscle tiring not pain. LTG Duration 6 progressing 12/14/22 One Impairment LE weakness Short Term Goal (STG) Pt's LE MMT scores to improve to 4+/5 or better to show improving strength to perform daily and functional activities and to decrease symptoms. STG Duration 4 Intermediate Goal (LTG) Pt's LE MMT scores to improve to 5/5 to show improved strength to perform daily and functional activities and to decrease symptoms. LTG Duration 6 Assessment Summary Assessment Pt good tolerance to ther ex, able to increase resistance to standing Jh curl, added cable squat row for overall strengthening at the gym. She reports has learned alot about postural alignment and strengthening but no significant decrease in electrical pain has, tends to carry head forward for relief, worse with taller posture but realized the benefits decrease stress on spine and muscles if more upright. Good core effore reported during seated Tball activity. Physical Therapy Plan Frequency and Duration Frequency of Treatment 2x/Week Duration of treatment (weeks) 6 Plan of Care Start Date 10/11/22 Plan of Care End Date 12/27/22 Therapeutic Interventions Therapeutic Interventions Home Exercise Program,Joint Mobilizations,Manual Therapy, Neuromuscular Re-education, Patient/Caregiver Education, Self-Care/Home Management,Soft Tissue Mobilization,Taping, Therapeutic Activities, Therapeutic Exercises Modalities Cold Pack/Ice Massage,Electric Stimulation,Hot Packs, Traction- Mechanical Next Visit Focus/Plan Next Note Type Treatment Note Next Visit Plan 3 more visits scheduled, may be ready to continue on own, conversation next tx. POC: Continue progressing as tolerated. Assess tolerance to HEP progressions weighted squat last tx.
--- NOTE | 2022-12-20 16:17 | PT.OTN ---
Current Diagnoses Sciatica, unspecified side (12/20/22) Physical Therapy Treatment Note PT-OP-A Visit Information Start: 10/11/22 15:26 Freq: Status: Active Protocol: Document 12/20/22 15:38 AB (Rec: 12/20/22 16:16 AB [id number]) Out-Patient Physical Therapy Visit Information Visit Information Visit Type Treatment Note Visit Start Time 15:33 Visit Stop Time 16:15 Total Visit Minutes 42 Visit Number 18 Evaluation Information Evaluation Date 10/11/22 Precautions Precautions HTN (controlled), hyperlipidemia (controlled), osteopenia PT-OP-B Current Condition Start: 10/11/22 15:26 Freq: Status: Active Protocol: Document 10/11/22 15:26 AB (Rec: 10/11/22 17:17 AB [id number]) Current Condition History of Current Condition Onset Date - 2021 Current Complaints BLE pain and N/T History of Current Condition Pt reports her symptoms began in 2001 insidiously with symptoms occurring every once in a while, and over the last few years it has worsened. However, after being inactive during her symptoms significantly worsened. Pt reports she currently experiences BLE pain and N/T in BLE (avg 5/10), her worst pain is 8/10 when sitting, at best her pain is 3/10. She reports aspirin helps her pain , but is hesitant to take prescription medication due to their side effects. The pt reports walking and standing help to improve her symptoms. Prior Treatments and Tests Acupunture- no improvement PT- no improvement Chiropractor- no improvement X rays, MRI- mild degenerative changes; herniated nucleus pulposus L3-4 right Treatment Goals Patient/Caregiver Goals To improve her symptoms. Prior Functional Status Baseline Function- ADL's Independent Baseline Function- Mobility Independent Baseline Function- Gait No abnormalities Baseline Function- Work/School Retired Baseline Function- Recreation/Hobbies Bicycling, walking Current Functional Impairments (Reported) Functional Limitations- Other No limitations, as she tries to push through her symptoms PT-OP-C Subjective Start: 10/11/22 15:26 Freq: Status: Active Protocol: Document 12/20/22 16:16 AB (Rec: 12/20/22 16:17 AB [id number]) OP-PT Subjective Patient Comments Patient Comments Pt reports she continues to feel about the same as she has been feeling, without a significant improvement in her pain symptoms. However, improvements in her strength and balance are noticable to her. PT-OP-E Functional Tests Start: 10/11/22 15:26 Freq: Status: Active Protocol: Document 11/15/22 11:04 AB (Rec: 11/15/22 13:39 AB [id number]) Functional Tests Squat Test Score to 120 deg Comments no dynamic knee valgus noted PT-OP-G Mobility & Gait Start: 10/11/22 15:26 Freq: Status: Active Protocol: Document 11/15/22 13:40 AB (Rec: 11/15/22 13:41 AB [id number]) OP Gait Assessment Gait Deviations General Gait Pattern Within Normal Limits Comments Gait Comments Gait pattern is WNL, no significant deviations noted; genu varum noted in standing PT-OP-K Range of Motion Start: 10/11/22 15:26 Freq: Status: Active Protocol: Document 11/15/22 11:04 AB (Rec: 11/15/22 13:39 AB [id number]) Lumbar Spine Range of Motion Lumbar Spine Active Degrees Testing Position Standing Extension 45 Rotation Left 60 Rotation Right 60 Comments flexion: fingers to floor SB bilaterally: to fibular head Denies pain with all motions Hip Goniometric Range of Motion Hip Right Active Hip ROM WFL Yes Left Active Hip ROM WFL Yes PT-OP-M Strength Start: 10/11/22 15:26 Freq: Status: Active Protocol: Document 11/15/22 11:04 AB (Rec: 11/15/22 13:39 AB [id number]) Hip Strength Hip Manual Muscle Testing Right Flexion (L2) 4+ Good+ Extension (S1) 4 Good Abduction 4- Good- Adduction 4+ Good+ External Rotation 4- Good- Internal Rotation 4 Good Comments Denies pain Left Flexion (L2) 4+ Good+ Extension (S1) 4 Good Abduction 4 Good Adduction 4+ Good+ External Rotation 4- Good- Internal Rotation 4 Good Comments Denies pain Knee Strength Knee Manual Muscle Testing Right Flexion (S2) 4+ Good+ Extension (L3) 4+ Good+ Comments Denies pain Left Flexion (S2) 4+ Good+ Extension (L3) 4+ Good+ Comments Denies pain Ankle/Foot Strength Ankle and Foot Manual Muscle Testing Left Dorsiflexion (L4) 5 Normal Plantarflexion (S1) 5 Normal Eversion (S1) 5 Normal Comments Denies pain Right Dorsiflexion (L4) 5 Normal Plantarflexion (S1) 5 Normal Eversion (S1) 5 Normal Comments Denies pain PT-OP-Q Treatments Start: 10/11/22 15:26 Freq: Status: Active Protocol: Document 12/20/22 15:38 AB (Rec: 12/20/22 16:16 AB [id number]) Cardio Equipment Recumbent Bicycle Duration (Minutes) 7 Resistance 7 Seat Position 2 Therapeutic Exercises Prone Exercises Prone Press up Prone Exercise Name Prone Press up on hands Side bilateral Reps/Minutes 2x10, 1 SH Comments reports feeling a good stretch Sitting Exercises pelvic tilts Sitting Exercise Name pelvis tilts, march, LAQ, Resistance AROM Equipment Used seated on 65cm tball Reps/Minutes 2x10 ea Comments cues as needed for COG over DUNCAN, core/LE support for alignment corrections Standing Exercises Jh curls Resistance 7# DB Equipment Used 4 step Reps/Minutes x10 Comments good form and stretch response - not alot pain performing Captain Boothe Standing Exercise Name Captain Valdez mini squat Side bilateral Resistance (SLS mini squat)- side trunk wall slide Reps/Minutes 2x10 ea Comments good feedback glut med/ prox quad tiring- cued knee behind toe Other Exercises lumbar ext Other Exercise Name Supermans Equipment Used floor mat Reps/Minutes 1x10, 1x15 Comments cues to extend BLEs and BUEs 1/2 kneel chop/lift Side bilateral Resistance 5# DB Reps/Minutes 2x8 ea Neuro Re-Education Treatment Coordination Activities Firehydrants Details Quadruped firehydrants Reps/Duration 2x10 ea Comments cues for neutral C and L spine , keeping TA engaged and hips level PT-OP-T Assessment and Plan Start: 10/11/22 15:26 Freq: Status: Active Protocol: Document 12/20/22 15:38 AB (Rec: 12/20/22 16:16 AB [id number]) Physical Therapy Assessment Goals Four Impairment HEP Short Term Goal (STG) Pt to demonstrate compliance with HEP as demonstrated by recalling 75% of exercises for progression in therapy. 11/11/22: has to reminded matching the pics with name of ex. She states sciatic nerve glide helps with reduction back pain. Uses HOs as needed. Provided HOs for resisted standing ex today. STG Duration 3 Water Gas Operator Goal (LTG) Pt to demonstrate independence with HEP as demonstrated by recalling 100% of exercises for dishcarge to IND HEP. LTG Duration 6 Three Impairment Modified Oswestry score Short Term Goal (STG) Pt's Modified Oswestry score to improve to 5/50 or better to show improving symptoms and QOL. STG Duration 4 Water Gas Operator Goal (LTG) Pt's Modified Oswestry score to improve to 0/50 to demonstrate resolved symptoms and improved QOL. LTG Duration 6 Two Impairment Functional mobility- squatting Short Term Goal (STG) Pt to perform body weight squat without significant dynamic knee valgus noted in order to demonstrate improved mechanics, strength and neuromuscular control to perform functional activities. 12/14/22: GOAL MET: able to completed body wt squat with improved knee abd with feet automatic corrections (little hip abd weakness), pain free. STG Duration 4 GOAL MET Water Gas Operator Goal (LTG) Pt to perform 10# squat without significant dynamic knee valgus noted in order to demonstrate improved mechanics , strength and neuromuscular control to perform functional activities. 12/14/22: progressing: able to complete air squat in mirror with 5# DB, good form and BLE muscle tiring not pain. LTG Duration 6 progressing 12/14/22 One Impairment LE weakness Short Term Goal (STG) Pt's LE MMT scores to improve to 4+/5 or better to show improving strength to perform daily and functional activities and to decrease symptoms. STG Duration 4 Senior Living Goal (LTG) Pt's LE MMT scores to improve to 5/5 to show improved strength to perform daily and functional activities and to decrease symptoms. LTG Duration 6 Assessment Summary Assessment Continued with therex program focusing on core/hip strength and mobility. She was progressed in her Rolly curls by standing on a 4 box to increase her ROM with these . She was also progressed by adding sets and reps as noted above. After discussion with the pt regarding her progress, it was determined that her appointment on 12/27 will be her last, and she will be discharged to independent [facility] at that point. Physical Therapy Plan Frequency and Duration Frequency of Treatment 2x/Week Duration of treatment (weeks) 6 Plan of Care Start Date 10/11/22 Plan of Care End Date 12/27/22 Therapeutic Interventions Therapeutic Interventions Home Exercise Program,Joint Mobilizations,Manual Therapy, Neuromuscular Re-education, Patient/Caregiver Education, Self-Care/Home Management,Soft Tissue Mobilization,Taping, Therapeutic Activities, Therapeutic Exercises Modalities Cold Pack/Ice Massage,Electric Stimulation,Hot Packs, Traction- Mechanical Next Visit Focus/Plan Next Note Type Treatment Note Next Visit Plan 2 more visits scheduled then d /c to independent HEP. POC: Continue progressing as tolerated. Assess tolerance to HEP progressions weighted squat last tx.
--- NOTE | 2022-12-22 17:26 | PT.OTN ---
Current Diagnoses Sciatica, unspecified side (12/22/22) Physical Therapy Treatment Note PT-OP-A Visit Information Start: 10/11/22 15:26 Freq: Status: Active Protocol: Document 12/22/22 17:21 AB (Rec: 12/22/22 17:26 AB [id number]) Out-Patient Physical Therapy Visit Information Visit Information Visit Type Treatment Note Visit Start Time 13:00 Visit Stop Time 13:45 Total Visit Minutes 45 Visit Number 19 Evaluation Information Evaluation Date 10/11/22 Precautions Precautions HTN (controlled), hyperlipidemia (controlled), osteopenia PT-OP-B Current Condition Start: 10/11/22 15:26 Freq: Status: Active Protocol: Document 10/11/22 15:26 AB (Rec: 10/11/22 17:17 AB [id number]) Current Condition History of Current Condition Onset Date - 2021 Current Complaints BLE pain and N/T History of Current Condition Pt reports her symptoms began in 2001 insidiously with symptoms occuring every once in a while, and over the last few years it has worsened. However, after being inactive during her symptoms significantly worsened. Pt reports she currently experiences BLE pain and N/T in BLE (avg 5/10), her worst pain is 8/10 when sitting, at best her pain is 3/10. She reports aspirin helps her pain , but is hesitant to take prescription medication due to their side effects. The pt reports walking and standing help to improve her symptoms. Prior Treatments and Tests Acupunture- no improvement PT- no improvement Chiropractor- no improvement X rays, MRI- mild degenerative changes; herniated nucleus pulposus L3-4 right Treatment Goals Patient/Caregiver Goals To improve her symptoms. Prior Functional Status Baseline Function- ADL's Independent Baseline Function- Mobility Independent Baseline Function- Gait No abnormalities Baseline Function- Work/School Retired Baseline Function- Recreation/Hobbies Bicycling, walking Current Functional Impairments (Reported) Functional Limitations- Other No limitations, as she tries to push through her symptoms PT-OP-C Subjective Start: 10/11/22 15:26 Freq: Status: Active Protocol: Document 12/22/22 17:21 AB (Rec: 12/22/22 17:26 AB [id number]) OP-PT Subjective Patient Comments Patient Comments The pt reports no significant change since her last visit. She is still agreeable to ending PT upon conclusion of POC. PT-OP-E Functional Tests Start: 10/11/22 15:26 Freq: Status: Active Protocol: Document 11/15/22 11:04 AB (Rec: 11/15/22 13:39 AB [id number]) Functional Tests Squat Test Score to 120 deg Comments no dynamic knee valgus noted PT-OP-G Mobility & Gait Start: 10/11/22 15:26 Freq: Status: Active Protocol: Document 11/15/22 13:40 AB (Rec: 11/15/22 13:41 AB [id number]) OP Gait Assessment Gait Deviations General Gait Pattern Within Normal Limits Comments Gait Comments Gait pattern is WNL, no significant deviations noted; genu varum noted in standing PT-OP-K Range of Motion Start: 10/11/22 15:26 Freq: Status: Active Protocol: Document 11/15/22 11:04 AB (Rec: 11/15/22 13:39 AB [id number]) Lumbar Spine Range of Motion Lumbar Spine Active Degrees Testing Position Standing Extension 45 Rotation Left 60 Rotation Right 60 Comments flexion: fingers to floor SB bilaterally: to fibular head Denies pain with all motions Hip Goniometric Range of Motion Hip Right Active Hip ROM WFL Yes Left Active Hip ROM WFL Yes PT-OP-M Strength Start: 10/11/22 15:26 Freq: Status: Active Protocol: Document 11/15/22 11:04 AB (Rec: 11/15/22 13:39 AB [id number]) Hip Strength Hip Manual Muscle Testing Right Flexion (L2) 4+ Good+ Extension (S1) 4 Good Abduction 4- Good- Adduction 4+ Good+ External Rotation 4- Good- Internal Rotation 4 Good Comments Denies pain Left Flexion (L2) 4+ Good+ Extension (S1) 4 Good Abduction 4 Good Adduction 4+ Good+ External Rotation 4- Good- Internal Rotation 4 Good Comments Denies pain Knee Strength Knee Manual Muscle Testing Right Flexion (S2) 4+ Good+ Extension (L3) 4+ Good+ Comments Denies pain Left Flexion (S2) 4+ Good+ Extension (L3) 4+ Good+ Comments Denies pain Ankle/Foot Strength Ankle and Foot Manual Muscle Testing Left Dorsiflexion (L4) 5 Normal Plantarflexion (S1) 5 Normal Eversion (S1) 5 Normal Comments Denies pain Right Dorsiflexion (L4) 5 Normal Plantarflexion (S1) 5 Normal Eversion (S1) 5 Normal Comments Denies pain PT-OP-Q Treatments Start: 10/11/22 15:26 Freq: Status: Active Protocol: Document 12/22/22 17:21 AB (Rec: 12/22/22 17:26 AB [id number]) Cardio Equipment Recumbent Bicycle Duration (Minutes) 11 Resistance 7 Seat Position 2 Therapeutic Exercises Prone Exercises Prone Press up Prone Exercise Name Prone Press up on hands Side bilateral Reps/Minutes 2x10, 1 SH Comments reports feeling a good stretch Sitting Exercises pelvic tilts Sitting Exercise Name pelvis tilts, march, LAQ, Resistance AROM Equipment Used seated on 65cm tball Reps/Minutes 2x15 ea Comments cues as needed for COG over DUNCAN, core/LE support for alignement corrections 1 Sitting Exercise Name 3 way lumbar flexion stretch Reps/Minutes 2 min Comments 3-5 sec hold in each position Standing Exercises Jh curls Resistance 7# DB Equipment Used 4 step Reps/Minutes x10 Comments good form and stretch response - not alot pain performing Other Exercises lumbar ext Other Exercise Name Supermans Equipment Used floor mat Reps/Minutes 1x10, 1x15 Comments cues to extend BLEs and BUEs 1/2 kneel chop/lift Side bilateral Resistance 5# DB Reps/Minutes 2x10 ea Self-Care/Home Management Treatment Education Patient Education Home Exercise Program,Pain Management PT-OP-T Assessment and Plan Start: 10/11/22 15:26 Freq: Status: Active Protocol: Document 12/22/22 17:21 AB (Rec: 12/22/22 17:26 AB [id number]) Physical Therapy Assessment Goals Four Impairment HEP Short Term Goal (STG) Pt to demonstrate compliance with HEP as demonstrated by recalling 75% of exercises for progression in therapy. 11/11/22: has to reminded matching the pics with name of ex. She states sciatic nerve glide helps with reduction back pain. Uses HOs as needed. Provided HOs for resisted standing ex today. STG Duration 3 Group Home Goal (LTG) Pt to demonstrate independence with HEP as demonstrated by recalling 100% of exercises for dishcarge to IND HEP. LTG Duration 6 Three Impairment Modified Oswestry score Short Term Goal (STG) Pt's Modified Oswestry score to improve to 5/50 or better to show improving symptoms and QOL. STG Duration 4 Group Home Goal (LTG) Pt's Modified Oswestry score to improve to 0/50 to demonstrate resolved symptoms and improved QOL. LTG Duration 6 Two Impairment Functional mobility- squatting Short Term Goal (STG) Pt to perform body weight squat without significant dynamic knee valgus noted in order to demonstrate improved mechanics, strength and neuromuscular control to perform functional activities. 12/14/22: GOAL MET: able to completed body wt squat with improved knee abd with feet automatic corrections (little hip abd weakness), pain free. STG Duration 4 GOAL MET Transfer Engineer Goal (LTG) Pt to perform 10# squat without significant dynamic knee valgus noted in order to demonstrate improved mechanics , strength and neuromuscular control to perform functional activities. 12/14/22: progressing: able to complete air squat in mirror with 5# DB, good form and BLE muscle tiring not pain. LTG Duration 6 progressing 12/14/22 One Impairment LE weakness Short Term Goal (STG) Pt's LE MMT scores to improve to 4+/5 or better to show improving strength to perform daily and functional activities and to decrease symptoms. STG Duration 4 Transfer Engineer Goal (LTG) Pt's LE MMT scores to improve to 5/5 to show improved strength to perform daily and functional activities and to decrease symptoms. LTG Duration 6 Assessment Summary Assessment The pt was progressed today by adding reps/sets as noted above. The pt requires minimal cues for proper pelvic and spinal positioning when performing exercises. No additions were made, as the pt will be discharging next visit. Plan is to conduct discharge and ensure pt fully understands HEP and is comfortable with progressions. Physical Therapy Plan Frequency and Duration Frequency of Treatment 2x/Week Duration of treatment (weeks) 6 Plan of Care Start Date 10/11/22 Plan of Care End Date 12/27/22 Therapeutic Interventions Therapeutic Interventions Home Exercise Program,Joint Mobilizations,Manual Therapy, Neuromuscular Re-education, Patient/Caregiver Education, Self-Care/Home Management,Soft Tissue Mobilization,Taping, Therapeutic Activities, Therapeutic Exercises Modalities Cold Pack/Ice Massage,Electric Stimulation,Hot Packs, Traction- Mechanical Next Visit Focus/Plan Next Note Type Discharge Summary Next Visit Plan Discharge as per POC.
--- NOTE | 2022-12-27 14:59 | PT.OTN ---
Current Diagnoses Sciatica, unspecified side (12/27/22) Physical Therapy Treatment Note PT-OP-A Visit Information Start: 10/11/22 15:26 Freq: Status: Active Protocol: Document 12/27/22 13:55 AB (Rec: 12/27/22 14:37 AB [id number]) Out-Patient Physical Therapy Visit Information Visit Information Visit Type Discharge Summary Visit Start Time 13:45 Visit Stop Time 14:30 Total Visit Minutes 45 Visit Number 20 Evaluation Information Evaluation Date 10/11/22 Precautions Precautions HTN (controlled), hyperlipidemia (controlled), osteopenia PT-OP-B Current Condition Start: 10/11/22 15:26 Freq: Status: Active Protocol: Document 12/27/22 13:55 AB (Rec: 12/27/22 14:37 AB [id number]) Current Condition History of Current Condition Onset Date - 2021 Current Complaints BLE pain and N/T History of Current Condition Pt reports her symptoms began in 2001 insidiously with symptoms occuring every once in a while, and over the last few years it has worsened. However, after being inactive during her symptoms significantly worsened. Pt reports she currently experiences BLE pain and N/T in BLE (avg 5/10), her worst pain is 8/10 when sitting, at best her pain is 3/10. She reports aspirin helps her pain , but is hesitant to take prescription medication due to their side effects. The pt reports walking and standing help to improve her symptoms. Prior Treatments and Tests Acupunture- no improvement PT- no improvement Chiropractor- no improvement X rays, MRI- mild degenerative changes; herniated nucleus pulposus L3-4 right Current Functional Impairments (Reported) Functional Limitations- Other No limitations, as she tries to push through her symptoms PT-OP-C Subjective Start: 10/11/22 15:26 Freq: Status: Active Protocol: Document 12/27/22 13:55 AB (Rec: 12/27/22 14:37 AB [id number]) OP-PT Subjective Patient Comments Patient Comments The pt reports feeling like she has gained the knowledge to continue with independent HEP. While her strength and mobility have improved, her pain has only minimally improved. However, she is now familiar with exercises that help to modulate that pain. Patient Questionnaires Lower Extremity Functional Scale LEFS Score 62/80 LEFS Impairment 20 to 39% Impaired (Score 48- 62) Oswestry Low Back Index Oswestry Score 9/50 Oswestry Impairment 1 to 19% Impaired (Score 1-19) PT-OP-E Functional Tests Start: 10/11/22 15:26 Freq: Status: Active Protocol: Document 12/27/22 14:57 AB (Rec: 12/27/22 14:57 AB [id number]) Functional Tests Squat Test Score to 120 deg Comments no dynamic knee valgus noted PT-OP-G Mobility & Gait Start: 10/11/22 15:26 Freq: Status: Active Protocol: Document 12/27/22 14:57 AB (Rec: 12/27/22 14:57 AB [id number]) OP Gait Assessment Gait Deviations General Gait Pattern Within Normal Limits Comments Gait Comments Gait pattern is WNL, no significant deviations noted; genu varum noted in standing PT-OP-K Range of Motion Start: 10/11/22 15:26 Freq: Status: Active Protocol: Document 12/27/22 13:55 AB (Rec: 12/27/22 14:37 AB [id number]) Lumbar Spine Range of Motion Lumbar Spine Active Degrees Testing Position Standing Extension 45 Rotation Left 60 Rotation Right 60 Comments flexion: fingers to floor SB bilaterally: to fibular head Denies pain with all motions Hip Goniometric Range of Motion Hip Right Active Hip ROM WFL Yes Left Active Hip ROM WFL Yes PT-OP-M Strength Start: 10/11/22 15:26 Freq: Status: Active Protocol: Document 12/27/22 13:55 AB (Rec: 12/27/22 14:37 AB [id number]) Hip Strength Hip Manual Muscle Testing Right Flexion (L2) 5 Normal Extension (S1) 4 Good Abduction 4 Good Adduction 4+ Good+ External Rotation 4 Good Internal Rotation 4 Good Comments Denies pain Left Flexion (L2) 5 Normal Extension (S1) 4 Good Abduction 4 Good Adduction 4+ Good+ External Rotation 4 Good Internal Rotation 4 Good Comments Denies pain Knee Strength Knee Manual Muscle Testing Right Flexion (S2) 4+ Good+ Extension (L3) 5 Normal Comments Denies pain Left Flexion (S2) 4+ Good+ Extension (L3) 5 Normal Comments Denies pain PT-OP-Q Treatments Start: 10/11/22 15:26 Freq: Status: Active Protocol: Document 12/27/22 13:55 AB (Rec: 12/27/22 14:37 AB [id number]) Therapeutic Exercises Standing Exercises Captain Boothe Standing Exercise Name Captain Valdez mini squat Side bilateral Resistance (SLS mini squat)- side trunk wall slide Reps/Minutes 2x10 ea Comments good feedback glut med/ prox quad tiring- cued knee behind toe Suitcase Carry Standing Exercise Name assimulation (carrying dirt 1 sided garden) Side bilateral Resistance 10# DB (1 side at time) Reps/Minutes 50 Comments 1st set: suitcase carry, 2ns set: famrer's carry with 10 and 5 DB 4 Standing Exercise Name Paloff press + chop/lift rotation Side bilateral Resistance orange TB Reps/Minutes 2x15 reps Comments cued soft knee, neutral pelvis , upper body more fwd head ovr shld ovr pelvi Neuro Re-Education Treatment Coordination Activities Firehydrants Details Quadruped firehydrants Equipment peach TB Reps/Duration 1x10 ea Comments cues for neutral C and L spine , keeping TA engaged and hips level Self-Care/Home Management Treatment Education Patient Education Home Exercise Program,Pain Management PT-OP-T Assessment and Plan Start: 10/11/22 15:26 Freq: Status: Active Protocol: Document 12/27/22 13:55 AB (Rec: 12/27/22 14:37 AB [id number]) Physical Therapy Assessment Goals Four Impairment HEP Short Term Goal (STG) Pt to demonstrate compliance with HEP as demonstrated by recalling 75% of exercises for progression in therapy. 11/11/22: has to reminded matching the pics with name of ex. She states sciatic nerve glide helps with reduction back pain. Uses HOs as needed. Provided HOs for resisted standing ex today. STG Duration 3 Halfway Goal (LTG) Pt to demonstrate independence with HEP as demonstrated by recalling 100% of exercises for discharge to IND HEP. LTG Duration 6 Three Impairment Modified Oswestry score Short Term Goal (STG) Pt's Modified Oswestry score to improve to 5/50 or better to show improving symptoms and QOL. STG Duration 4 Underwriting Consultant Goal (LTG) Pt's Modified Oswestry score to improve to 0/50 to demonstrate resolved symptoms and improved QOL. LTG Duration 6 Two Impairment Functional mobility- squatting Short Term Goal (STG) Pt to perform body weight squat without significant dynamic knee valgus noted in order to demonstrate improved mechanics, strength and neuromuscular control to perform functional activities. 12/14/22: GOAL MET: able to completed body wt squat with improved knee abd with feet automatic corrections (little hip abd weakness), painfree. STG Duration 4 GOAL MET Underwriting Consultant Goal (LTG) Pt to perform 10# squat without significant dynamic knee valgus noted in order to demonstrate improved mechanics , strength and neuromuscular control to perform functional activities. 12/14/22: progressing: able to complete air squat in mirror with 5# DB, good form and BLE muscle tiring not pain. LTG Duration 6 progressing 12/14/22 One Impairment LE weakness Short Term Goal (STG) Pt's LE MMT scores to improve to 4+/5 or better to show improving strength to perform daily and functional activities and to decrease symptoms. STG Duration 4 Underwriting Consultant Goal (LTG) Pt's LE MMT scores to improve to 5/5 to show improved strength to perform daily and functional activities and to decrease symptoms. LTG Duration 6 Assessment Summary Assessment Bryanna has completed 20 visits of skilled PT over the course of a month and a half. Over the course of her therapy, she has shown significant improvements in strength and lumbar spine AROM. She also demonstrates proficiency in performing HEP independently. However, the pt continues with similar pain symptoms as previous to participating in PT. Based on the plateau in improvement of pain symptoms and independence with HEP, the pt will discharge from skilled PT. The pt was educated on various treatment options to help modulate pain, as well as the benefit of performing skilled PT in conjunction with these treatments to improve her outcomes. She was also educated on how to continue with HEP independently to maintain strength and mobility gains made. The pt verbalizes understanding of education provided. Physical Therapy Plan Therapeutic Interventions Therapeutic Interventions Home Exercise Program,Joint Mobilizations,Manual Therapy, Neuromuscular Re-education, Patient/Caregiver Education, Self-Care/Home Management,Soft Tissue Mobilization,Taping, Therapeutic Activities, Therapeutic Exercises Modalities Cold Pack/Ice Massage,Electric Stimulation,Hot Packs, Traction- Mechanical Discharge Physical Therapy Discharge Reasons Plateau in Progress Discharge Comments Pt has achieved strength and ROM but continues with some pain symptoms.
== END 2022-12-30 09:47 | disposition home or self-care (01) ==
LOC: PHYS 13:45
PROVIDERS: Family Provider Internal Medicine; PCP Internal Medicine; Referring Provider Family Medicine; Visit Provider Family Medicine
DX: M54.30 Sciatica, unspecified side (principal)
CPT/HCPCS: 97110; 97112; 97161; 97535

== ENCOUNTER → 2022-12-28 12:09 | Outpatient (CLI) | payer MEDICARE, OTHER, SELFPAY ==
[2022-12-28 14:31] LABS: Alanine Aminotransferase 34 IU/L (<35); Albumin 4.4 g/dL (3.5-5.0); Albumin Globulin Ratio 1.6 (1.0-2.8); Alkaline Phosphatase 62 U/L (38-126); Aspartate Aminotransferase 41 IU/L (14-36); BUN Creatinine Ratio 27.9 (6-22); Bilirubin Total 0.6 mg/dL (0.2-1.3); Blood Urea Nitrogen 19 mg/dL (7-17); Carbon Dioxide 28 mmol/L (22-32); Chloride 102 mmol/L (98-107); Estimated Glomerular Filt Rate > 60 mL/min (>60); Globulin 2.8 g/dL (1.7-4.1); Glucose 104 mg/dL (80-110); HEMOLYSIS < 15 (0-50); Potassium 4.5 mmol/L (3.4-5.1); Sodium 136 mmol/L (137-145); Total Protein 7.2 g/dL (6.3-8.2)
== END ==
PROVIDERS: Family Provider Internal Medicine; PCP Internal Medicine; Referring Provider Internal Medicine; Visit Provider Internal Medicine
DX: M81.0 Age-related osteoporosis without current pathological fracture (principal)
CPT/HCPCS: 36415; 80053

== ENCOUNTER 2023-04-26 07:57 | Day surgery (SDC) | payer MEDICARE, OTHER, SELFPAY ==
[2023-04-26 08:15] VITALS: BP 186/97; PULSE 78; RESP 18; TEMP 36.3; O2SAT 98
[2023-04-26] MEDS: LACTATED RINGERS 1,000 ML 42 ML IV (08:23)
--- NOTE | 2023-04-26 08:44 | P.HP_ITS ---
History of Present Illness History of Present Illness Date Patient Seen: 04/26/23 Time Patient Seen: 08:44 Chief complaint: Colonoscopy Narrative: 73-year-old woman here for screening colonoscopy. Last colonoscopy 2012 normal. No family history of intestinal malignancy. No abdominal concerns today. 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 household members: spouse lives independently: Yes education level: college occupational status: 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) leisure activities: exercise and other (hiking) other: cooking Smoking Status: Former smoker alcohol intake: current substance use type: does not use Meds Home Medications and Allergies Home Medications Medication Instructions Recorded Confirmed Type rosuvastatin 10 mg tablet 10 mg PO DAILY #90 tabs 09/27/22 04/26/23 Rx lisinopril 10 mg tablet 10 mg PO DAILY #90 tabs 10/18/22 04/26/23 Rx Allergies Allergy/AdvReac Type Severity Reaction Status Date / Time No Known Drug Allergies Allergy Verified 04/26/23 08:12 Exam Vital Signs (past 8 hours): - 04/26/23 08:15 Temperature 97.4 F L Pulse Rate 78 Respiratory Rate 18 Blood Pressure 186/97 H Pulse Oximetry 98 Oxygen Delivery Method Room Air Oxygen Delivery Method Room Air Narrative Exam Narrative: General adult woman alert oriented no acute distress Chest nonlabored respiration Extremities warm well perfused Assessment & Plan Assessment & Plan narrative: The patient requires colorectal screening and colonoscopy is recommended. Technical details were discussed. Risks, benefits, alternatives explained. Risks including but not limited to myocardial infarction, aspiration, bleeding, pain, missed lesion, incomplete examination, need for further radiographic studies, colonic perforation, and need for major abdominal surgery were discussed. All questions were answered to their satisfaction, and they are in agreement with this plan.
[2023-04-26 09:13] VITALS: BP 103/72; PULSE 79; RESP 18; TEMP 37.7; O2SAT 96
--- NOTE | 2023-04-26 09:14 | P.OP.COLON_ITS ---
Operative Date/Time/Diagnoses Date of procedure: 04/26/23 Time of procedure: 09:14 Pre-op diagnosis: Colorectal screening Procedure & Clinicians Study performed: Colonoscopy screening Same procedure as scheduled: Yes Indications: Colorectal screening Surgeon: Omar Arias Procedure Notes Procedure in detail: The history and physical was performed/updated and the patient is ASA class is 2. The procedure was discussed in detail with the patient. Potential risks co mplications including infection, bleeding, missed diagnosis, perforation, need for surgery, and were explained. Their questions were answered and informed consent was obtained. Patient was brought to the procedure room and placed standard monitoring equipment. The patient's vital signs were monitored continuously throughout the entire procedure. Prior to starting time-out was performed. The patient was placed in the left lateral recumbent position. Procedural sedation was administered by anesthesia. Examination began with a thorough inspection of the perianal area there was no evidence of fissures, fistulae, external hemorrhoids or cutaneous malignancy. The colonoscopy scope was then placed into the anal canal and was advanced to the cecum, which was identified by the ileocecal valve, the appendiceal orifice and the confluence of the taenia. The scope was then slowly withdrawn examining colon thoroughly in all directions, irrigating it of any residual stool. The scope was retroflexed within the rectum The patient tolerated the procedure well. They will be discharged once criteria are met. The prep was of good/excellent quality. The withdrawl time was 7 minutes. FINDINGS * Unremarkable colonoscopy. No masses, polyps, inflammation. * Internal hemorrhoids grade 1 Specimen(s): none sent Impression: Normal colonoscopy Post-procedure Recommendations: High fiber diet Plan for aftercare: No further colonoscopy necessary unless symptomatic Disposition: same day surgery
[2023-04-26 09:18] VITALS: BP 128/91; PULSE 82; RESP 14; O2SAT 98
[2023-04-26 09:24] VITALS: BP 131/98; PULSE 72; RESP 18; O2SAT 99
[2023-04-26 09:31] VITALS: BP 135/98; PULSE 72; RESP 16; O2SAT 99
== END 2023-04-26 09:49 | disposition home or self-care (01) ==
PROVIDERS: Family Provider Internal Medicine; PCP Internal Medicine; Referring Provider Surgery; Visit Provider Surgery
PROC: 0DJD8ZZ Inspection of Lower Intestinal Tract, Via Natural or Artificial Opening Endoscopic (ICD-10-PCS; CPT 45378; principal; 2023-04-26 08:45)
DX: Z12.11 Encounter for screening for malignant neoplasm of colon (principal); K64.0 First degree hemorrhoids
CPT/HCPCS: G0121; J2704

== ENCOUNTER → 2023-06-25 10:07 | Outpatient (CLI) | payer MEDICARE, OTHER, SELFPAY ==
--- NOTE | 2023-06-25 10:08 | DI.MG.S_ITS ---
BILATERAL DIGITAL SCREENING MAMMOGRAM 3D/2D WITH CAD: 06/25/2023 CLINICAL: Routine screening. Family history of breast cancer. Comparison is made to exams dated: 06/21/2022 mammogram, 03/19/2021 mammogram, and 03/17/2020 mammogram - [facility]. Both breasts are heterogeneously dense, which may obscure small masses (category c / 51-75% glandular tissue). Current study was also evaluated with a Computer Aided Detection (CAD) system. No significant masses, calcifications, or other findings are seen in either breast. There has been no significant interval change. IMPRESSION: NEGATIVE There is no mammographic evidence of malignancy. A 1 year screening mammogram is recommended. Based on the Tyrer Cuzick model (a risk assessment model) the patient's lifetime risk is 18.2% and her 10 year risk is 12.7%. According to the ACR, ACS, and NCCN guidelines, an annual breast MRI exam along with mammogram is recommended if the patient's lifetime risk is 20% or greater. This exam was interpreted at Station ID: [id number]. NOTE: For mammograms, a report in lay terms will be sent to the patient. Approximately 15% of breast malignancies will not be visualized mammographically. In the management of a palpable breast mass, a negative mammogram must not discourage biopsy of a clinically suspicious lesion. Electronically Signed By: Héctor thomas/roxanna:06/27/2023 07:54:16 letter sent: Normal Exam ACR BI-RADS Category 1: Negative [id number]
== END ==
PROVIDERS: Family Provider Internal Medicine; PCP Internal Medicine; Referring Provider Internal Medicine; Visit Provider Internal Medicine
DX: Z12.31 Encounter for screening mammogram for malignant neoplasm of breast (principal); Z80.3 Family history of malignant neoplasm of breast; R92.333 Mammographic heterogeneous density, bilateral breasts
CPT/HCPCS: 77063; 77067

== ENCOUNTER → 2024-01-17 07:45 | Outpatient (CLI) | payer MEDICARE, OTHER, SELFPAY ==
[2024-01-17 08:25] LABS: Add Manual Diff / Slide Review NO; Basophils Absolute Auto 0 /uL (0-100); Basophils Percent Auto 0.6 % (0-2); Eosinophils Absolute Auto 200 /uL (0-450); Eosinophils Percent Auto 2.5 % (2-4); Hematocrit 39.4 % (36-46); Hemoglobin 13.2 g/dL (12.0-16.0); Lymphocytes Absolute Auto 2400 /uL (1100-4500); Lymphocytes Percent Auto 39.2 % (25-40); Mean Corpuscular HGB Conc 33.4 % (30-36); Mean Corpuscular Hemoglobin 32.2 PG (26-34); Mean Corpuscular Volume 96.5 fL (80-100); Monocytes Absolute Auto 700 /uL (0-900); Monocytes Percent Auto 12.2 % (3-14); Neutrophils Absolute Auto 2800 /uL (1500-7000); Neutrophils Percent Auto 45.5 % (50-75); Platelet Count 351 X10^3/uL (150-400); Red Blood Cell Count 4.09 X10^6/uL (4.0-5.2); Red Cell Distribution Width 13.3 % (11.6-14.8); White Blood Cell Count 6.1 X10^3/uL (4.5-11.0)
[2024-01-17 08:54] LABS: Alanine Aminotransferase 23 IU/L (<35); Albumin 4.1 g/dL (3.5-5.0); Albumin Globulin Ratio 1.5 (1.0-2.8); Alkaline Phosphatase 56 U/L (38-126); Aspartate Aminotransferase 31 IU/L (14-36); BUN Creatinine Ratio 26.4 (6-22); Bilirubin Total 0.6 mg/dL (0.2-1.3); Blood Urea Nitrogen 19 mg/dL (7-17); Calcium 9.2 mg/dL (8.4-10.2); Carbon Dioxide 26 mmol/L (22-32); Chloride 104 mmol/L (98-107); Estimated Glomerular Filt Rate > 60 mL/min (>60); Globulin 2.8 g/dL (1.7-4.1); Glucose 101 mg/dL (80-110); HEMOLYSIS < 15 (0-50); Potassium 4.4 mmol/L (3.4-5.1); Sodium 134 mmol/L (137-145); Total Protein 6.9 g/dL (6.3-8.2)
[2024-01-17 08:55] LABS: Cholesterol 167 mg/dL (140-199); HDL Cholesterol > 110 mg/dL (40-60); LDL Cholesterol Calculated 46 mg/dL (<100); Triglycerides 53 mg/dL (35-150)
[2024-01-18 18:36] LABS: Fecal Immunochemical Test Negative (Negative)
== END ==
PROVIDERS: Physician Assistant; Family Provider Internal Medicine; PCP Internal Medicine; Referring Provider Internal Medicine; Visit Provider Internal Medicine
DX: R58 Hemorrhage, not elsewhere classified (principal); I10 Essential (primary) hypertension; E78.2 Mixed hyperlipidemia; M81.0 Age-related osteoporosis without current pathological fracture
CPT/HCPCS: 80053; 80061; 82274; 85025

== ENCOUNTER → 2024-05-31 14:21 | Outpatient (CLI) | payer MEDICARE, OTHER, SELFPAY ==
[2024-05-31 15:40] LABS: Clostridium Difficile Tox PCR Positive for C. diff (Negative)
== END ==
PROVIDERS: Family Provider Internal Medicine; PCP Internal Medicine; Referring Provider Nurse Practitioner Family; Visit Provider Nurse Practitioner Family
DX: R19.7 Diarrhea, unspecified (principal)
CPT/HCPCS: 87205; 87324; 87329; 87493

== ENCOUNTER → 2024-06-26 11:03 | Outpatient (CLI) | payer MEDICARE, OTHER, SELFPAY ==
--- NOTE | 2024-06-26 11:05 | DI.MG.S_ITS ---
MM screening mammo BI: 06/26/2024. BI-RADS: 1 CLINICAL: 74-year old female for bilateral screening mammogram. Tyrer-Cuzick lifetime risk of 5.4%. No personal or first-degree family history of breast cancer. Current reported family history of breast cancer: maternal aunt. PRIOR EXAMS 06/25/2023, 06/21/2022, 03/19/2021, 03/17/2020, 03/16/2019, 02/11/2018, 01/27/2017, 01/19/2016, 01/15/2015. MAMMOGRAPHY TECHNIQUE: 2D and 3D (tomosynthesis) digital mammographic views obtained, with additional images as needed for full coverage. Current study was also evaluated with a Computer Aided Detection (CAD) system. DENSITY C. The breasts are heterogeneously dense, which may obscure small masses. MAMMOGRAPHY FINDINGS Bilateral: No suspicious mass, asymmetry, microcalcification, or other abnormality seen. No significant change from comparison. IMPRESSION: * No evidence of malignancy. RECOMMENDATIONS Bilateral * Annual screening mammography. OVERALL ASSESSMENT CATEGORY BI-RADS-1: Negative. The [employer] recommends annual screening mammography beginning at age 40 for women with average risk of breast cancer. ELECTRONICALLY SIGNED: Erica Haskins M.D. on 06/26/2024 at 05:18:48 PM PT Interpreting Station ID: [id number]
== END ==
LOC: MAMMO 11:04
PROVIDERS: Family Provider Internal Medicine; PCP Internal Medicine; Referring Provider Internal Medicine; Visit Provider Internal Medicine
DX: Z12.31 Encounter for screening mammogram for malignant neoplasm of breast (principal); Z80.3 Family history of malignant neoplasm of breast; R92.333 Mammographic heterogeneous density, bilateral breasts
CPT/HCPCS: 77063; 77067

== ENCOUNTER → 2024-07-13 14:04 | Outpatient (CLI) | payer MEDICARE, OTHER, SELFPAY ==
[2024-07-13 14:26] LABS: Hematocrit 38.9 % (36-46); Hemoglobin 13.3 g/dL (12.0-16.0); Mean Corpuscular HGB Conc 34.3 % (30-36); Mean Corpuscular Hemoglobin 32.5 PG (26-34); Mean Corpuscular Volume 94.7 fL (80-100); Platelet Count 402 X10^3/uL (150-400); Red Blood Cell Count 4.11 X10^6/uL (4.0-5.2); Red Cell Distribution Width 12.9 % (11.6-14.8); White Blood Cell Count 6.9 X10^3/uL (4.5-11.0)
[2024-07-13 14:44] LABS: Alanine Aminotransferase 26 IU/L (<35); Albumin 4.6 g/dL (3.5-5.0); Albumin Globulin Ratio 1.8 (1.0-2.8); Alkaline Phosphatase 59 U/L (38-126); Aspartate Aminotransferase 31 IU/L (14-36); Bilirubin Total 0.6 mg/dL (0.2-1.3); Blood Urea Nitrogen 18 mg/dL (7-17); Calcium 9.5 mg/dL (8.4-10.2); Carbon Dioxide 22 mmol/L (22-32); Chloride 103 mmol/L (98-107); Cholesterol 170 mg/dL (140-199); Estimated Glomerular Filt Rate > 60 mL/min (>60); Globulin 2.6 g/dL (1.7-4.1); Glucose 101 mg/dL (70-99); HDL Cholesterol 106 mg/dL (40-60); HEMOLYSIS < 15 (0-50); LDL Cholesterol Calculated 47 mg/dL (<100); Potassium 4.3 mmol/L (3.4-5.1); Sodium 134 mmol/L (137-145); Total Protein 7.2 g/dL (6.3-8.2); Triglycerides 86 mg/dL (35-150)
[2024-07-13 15:14] LABS: TSH w/ Reflex to FT4 3.04 uIU/mL (0.47-4.68)
== END ==
PROVIDERS: Family Provider Internal Medicine; PCP Internal Medicine; Referring Provider Chiropractor; Visit Provider Chiropractor
DX: I10 Essential (primary) hypertension (principal); E78.2 Mixed hyperlipidemia; R19.7 Diarrhea, unspecified
CPT/HCPCS: 36415; 80053; 80061; 84443; 85027; 87329

== ENCOUNTER → 2025-01-28 13:25 | Outpatient (CLI) | payer MEDICARE, OTHER, SELFPAY ==
[2025-01-28 13:48] LABS: Hematocrit 38.2 % (36-46); Hemoglobin 12.9 g/dL (12.0-16.0); Mean Corpuscular HGB Conc 33.7 % (30-36); Mean Corpuscular Hemoglobin 31.7 PG (26-34); Mean Corpuscular Volume 94.0 fL (80-100); Platelet Count 345 X10^3/uL (150-400)
[2025-01-28 14:02] LABS: Alanine Aminotransferase 27 IU/L (<35); Albumin 4.6 g/dL (3.5-5.0); Albumin Globulin Ratio 1.7 (1.0-2.8); Alkaline Phosphatase 52 U/L (38-126); Blood Urea Nitrogen 21 mg/dL (7-17); Calcium 9.4 mg/dL (8.4-10.2); Carbon Dioxide 26 mmol/L (22-32); Chloride 101 mmol/L (98-107); Estimated Glomerular Filt Rate 54 mL/min (>60); Globulin 2.7 g/dL (1.7-4.1); Glucose 110 mg/dL (70-99); HEMOLYSIS < 15 (0-50); Potassium 4.3 mmol/L (3.4-5.1); Sodium 135 mmol/L (137-145); Total Protein 7.3 g/dL (6.3-8.2)
== END ==
PROVIDERS: PCP Internal Medicine; Referring Provider Internal Medicine; Visit Provider Internal Medicine
DX: M35.3 Polymyalgia rheumatica (principal); M81.0 Age-related osteoporosis without current pathological fracture
CPT/HCPCS: 36415; 80053; 85027; 85651; 86140

== ENCOUNTER → 2025-02-18 15:33 | Outpatient (CLI) | payer MEDICARE, OTHER, SELFPAY ==
--- NOTE | 2025-02-18 15:35 | DI.RAD.S_ITS ---
PROCEDURE: XR LUMBAR SPINE MIN 4V INDICATIONS: low back pain TECHNIQUE: 5 views of the lumbar spine acquired, including flexion and extension views. COMPARISON: [facility], CR, XR LUMBAR SPINE 2-3V, 04/09/2021, 10:18. [facility], CR, XR LUMBAR SPINE 2-3V, 10/09/2019, 11:30. FINDINGS: Bones: 5 nonrib-bearing vertebrae are present. Lumbar dextroscoliosis centered at L2-3. No sagittal listhesis. Multilevel facet arthrosis in the lumbar spine.. No vertebral body compression fractures. No suspicious bony lesions. Soft tissues: Overlying bowel gas pattern is normal. 2.5 cm calcification overlies the left renal shadow. Flexion/extension: There is normal range of motion, with preserved normal alignment. No dynamic instability on flexion extension views. IMPRESSION: Lumbar dexoscoliosis centered at L2-3 with multilevel facet arthrosis. A 2.5 cm calcified stone in the left kidney. Dictated by: Arnaldo George M.D. on 02/18/2025 at 20:59 Approved by: Arnaldo George M.D. on 02/18/2025 at 21:01
== END ==
PROVIDERS: PCP Internal Medicine; Referring Provider Physical Medicine & Rehabilitation; Visit Provider Physical Medicine & Rehabilitation
DX: M47.26 Other spondylosis with radiculopathy, lumbar region (principal); N20.0 Calculus of kidney; M41.9 Scoliosis, unspecified
CPT/HCPCS: 72110